=== PATIENT | male | born 1960 | race Caucasian/White ===

== ENCOUNTER 2016-04-06 09:21 | Emergency (ER) | payer BC ==
--- NOTE | 2016-08-18 13:25 | UC ---
King Fairbanks Adam, scribed for Isa Barahona MD on 04/06/16 at 1014 . Throat Pain/Nasal Prieto HPI - History of Current Complaint Stated Complaint: COUGH,SORE THROAT - Allergies/Home Medications Allergies/Adverse Reactions: Allergies Allergy/AdvReac Type Severity Reaction Status Date / Time No Known Allergies Allergy Verified 07/02/16 16:53 PMH/Surg Hx/FS Hx/Imm Hx Endocrine History Of: Reports: Thyroid Disease Denies: Diabetes Cardiovascular History Of: Denies: Cardiac Disorders, Hypertension, Pacemaker/ICD, Congestive Heart Failure Respiratory History Of: Denies: Asthma GI/ History Of: Denies: Renal Disease - Surgical History Surgical History: Yes Surgery Procedure, Year, and Place: Left wrist surgeries(GANGLION CYSTS) - Family History Known Family History: Positive: Other - [place] - Social History Alcohol Use: Rare Substance Use Type: None Smoking Status (MU): Never Smoked Tobacco Have You Smoked in the Last Year: No - Immunization History Most Recent Influenza Vaccination: unknown Most Recent Tetanus Shot: up to date Most Recent Pneumonia Vaccination: never Review of Systems All Other Systems Reviewed And Are Negative: Yes Discharge - Discharge Plan Disposition: LEFT WITHOUT BEING SEEN Referrals: Vu Bell MD [Primary Care Provider] - The documentation as recorded by the [place] Adam accurately reflects the service I personally performed and the decisions made by , Isa Barahona MD.
== END 2016-04-06 10:16 | disposition left against medical advice (07) ==
LOC: UCEAST 09:21
DX: Z53.21 Procedure and treatment not carried out due to patient leaving prior to being seen by health care provider (principal)

== ENCOUNTER 2016-04-06 12:08 | Emergency (ER) | payer BC ==
[2016-04-06 12:14] VITALS: BP 148/102
--- NOTE | 2016-04-06 13:04 | UC ---
Throat Pain/Nasal Prieto HPI - HPI Summary HPI Summary: FIVE DAYS OF SINUS CONGESTION, PRESSURE, SORE THROAT, RUNNY NOSE. COUGH WRSE AT NIGHT. NO FEVER. NO RASHES. - History of Current Complaint Chief Complaint: UCGeneralIllness Stated Complaint: CHEST CONGESTION Time Seen by Provider: 04/06/16 12:19 Hx Obtained From: Patient Onset/Duration: Gradual Onset, Lasting Days, Worse Since - DAILY Cough: Nonproductive Associated Signs & Symptoms: Positive: Hoarseness, Sinus Discomfort, Nasal Discharge - Epiglottits Risk Factors Epiglottis Risk Factors: Negative - Allergies/Home Medications Allergies/Adverse Reactions: Allergies Allergy/AdvReac Type Severity Reaction Status Date / Time No Known Allergies Allergy Verified 04/06/16 12:14 PMH/Surg Hx/FS Hx/Imm Hx Previously Healthy: Yes Endocrine History Of: Reports: Thyroid Disease Denies: Diabetes Cardiovascular History Of: Reports: Hypertension Denies: Cardiac Disorders, Pacemaker/ICD, Congestive Heart Failure Respiratory History Of: Denies: Asthma GI/ History Of: Denies: Renal Disease - Surgical History Surgical History: Yes Surgery Procedure, Year, and Place: Left wrist surgeries(GANGLION CYSTS). melanoma on back removed - Family History Known Family History: Positive: Other - [place] Negative: Respiratory Disease - Social History Occupation: Retired Lives: With Family Alcohol Use: Rare Substance Use Type: None Smoking Status (MU): Never Smoked Tobacco Have You Smoked in the Last Year: No - Immunization History Most Recent Influenza Vaccination: unknown Most Recent Tetanus Shot: up to date Most Recent Pneumonia Vaccination: never Review of Systems Constitutional: Negative Skin: Negative Eyes: Negative ENT: Sore Throat, Ear Ache, Nasal Discharge Respiratory: Cough Cardiovascular: Negative Gastrointestinal: Negative Genitourinary: Negative Motor: Negative Neurovascular: Negative Musculoskeletal: Negative Neurological: Negative Psychological: Negative All Other Systems Reviewed And Are Negative: Yes Physical Exam Triage Information Reviewed: Yes Appearance: Well-Appearing, No Pain Distress, Well-Nourished Vital Signs: Initial Vital Signs Temp 97.7 F 04/06/16 12:12 Pulse 88 04/06/16 12:12 Resp 18 04/06/16 12:12 BP 148/102 04/06/16 12:12 Pulse Ox 97 04/06/16 12:12 Vital Signs Reviewed: Yes Eye Exam: Normal Eyes: Positive: Conjunctiva Clear ENT: Positive: Hearing grossly normal, Pharynx normal, TM bulging, TM dull Dental Exam: Normal Neck exam: Normal Neck: Positive: Supple, Nontender, No Lymphadenopathy. Negative: Nuchal Rigidity, Tenderness @ Respiratory Exam: Other - COUGH Respiratory: Positive: Chest non-tender, Lungs clear, Normal breath sounds, No respiratory distress, No accessory muscle use Cardiovascular Exam: Normal Cardiovascular: Positive: RRR, No Murmur, Pulses Normal Abdominal Exam: Normal Abdomen Description: Positive: Nontender, No Organomegaly Musculoskeletal Exam: Normal Musculoskeletal: Positive: Strength Intact, ROM Intact, No Edema Neurological Exam: Normal Psychological Exam: Normal Psychological: Positive: Normal Response To Family Skin Exam: Normal Throat Pain/Nasal Course/Dx - Differential Dx/Diagnosis Differential Diagnosis/HQI/PQRI: Otitis Media, Pharyngitis, Sinusitis, Tonsillitis, URI Provider Diagnoses: SINUSITIS. BRONCHITIS Discharge - Discharge Plan Condition: Stable Disposition: HOME Prescriptions: Amoxicillin/Clavulanate TAB* [Augmentin TAB 875*] 875 mg PO BID #20 tab Benzonatate CAP* [Tessalon CAP*] 100 mg PO TID PRN #15 cap PRN Reason: Cough Patient Education Materials: Sinusitis (ED) Referrals: Vu Bell MD [Primary Care Provider] -
== END 2016-04-06 12:42 | disposition home or self-care (01) ==
LOC: UCEAST 12:08
DX: J32.9 Chronic sinusitis, unspecified (principal); J40 Bronchitis, not specified as acute or chronic; Z85.820 Personal history of malignant melanoma of skin
CPT/HCPCS: 99212; G0463

== ENCOUNTER 2016-06-15 07:40 | Emergency (ER) | payer BC ==
[2016-06-15 07:50] VITALS: BP 145/85
--- NOTE | 2016-06-15 08:04 | UC ---
Respiratory Complaint HPI - HPI Summary HPI Summary: The patient comes in today for: 1. Rhinitis, sore throat: Onset: 2 days ago. Palliative/provocative: Swallowing makes his throat hurt more. Quality: Raw sensation. Region: Throat. Severity: 6/10 Time: Constant. Associated symptoms: ONe month ago, he states that he had the same thing and it turned out to be "Sinusitis." He got amoxicillin which helped. His strep test was normal. Rhinitis: None. Cough: None. Fever: None. Strep exposure: None. * - History of Current Complaint Chief Complaint: UCRespiratory Stated Complaint: SINUS COMPLAINT Time Seen by Provider: 06/15/16 07:59 Hx Obtained From: Patient - Allergies/Home Medications Allergies/Adverse Reactions: Allergies Allergy/AdvReac Type Severity Reaction Status Date / Time No Known Allergies Allergy Verified 06/15/16 07:50 PMH/Surg Hx/FS Hx/Imm Hx Previously Healthy: No - Melanoma: back and chest. Endocrine History Of: Reports: Thyroid Disease, Hypothyroidism Denies: Diabetes, Hyperthyroidism, Dyslipidemia Cardiovascular History Of: Reports: Hypertension - HE states that his BP tends to run high, but not enough to Rx. Denies: Cardiac Disorders, Pacemaker/ICD, Congestive Heart Failure Respiratory History Of: Denies: COPD, Asthma, Bronchitis, Pneumonia, Pulmonary Embolism GI/ History Of: Reports: Gastroesophageal Reflux Denies: Ulcer, Gastrointestinal Bleed, Gall Bladder Disease, Kidney Stones, Diverticulitis, Renal Disease, Urosepsis Neurological History Of: Denies: TIA, CVA, Dementia, Seizures, Migraine Psychological History Of: Denies: Anxiety, Depression, Bipolar Disorder, Schizophrenia, Post Traumatic Stress Disorder Cancer History Of: Denies: Lung Cancer, Colorectal Cancer, Breast Cancer, Prostate Cancer, Cervical Cancer Other History Of: Negative For: HIV, Hepatitis B, Hepatitis C, Anticoagulant Therapy - Surgical History Surgical History: Yes Surgery Procedure, Year, and Place: Left wrist surgeries(GANGLION CYSTS). melanoma on back removed - Family History Known Family History: Positive: Hypertension, Other - [place] Negative: Cardiac Disease, Respiratory Disease - Social History Occupation: Retired Lives: With Family Alcohol Use: Rare Substance Use Type: None Smoking Status (MU): Never Smoked Tobacco Have You Smoked in the Last Year: No - Immunization History Most Recent Influenza Vaccination: unknown Most Recent Tetanus Shot: up to date Most Recent Pneumonia Vaccination: never Review of Systems Constitutional: Negative Skin: Negative Eyes: Negative ENT: Sore Throat Respiratory: Negative Cardiovascular: Negative Gastrointestinal: Negative Genitourinary: Negative All Other Systems Reviewed And Are Negative: Yes Physical Exam Triage Information Reviewed: Yes Appearance: Well-Appearing, No Pain Distress, Well-Nourished Vital Signs: Initial Vital Signs Temp 97.2 F 06/15/16 07:44 Pulse 79 06/15/16 07:44 Resp 18 06/15/16 07:44 BP 145/85 06/15/16 07:44 Pulse Ox 100 06/15/16 07:44 Vital Signs Reviewed: Yes Eyes: Positive: Conjunctiva Clear ENT: Positive: Hearing grossly normal. Negative: Pharyngeal erythema, Nasal congestion, Nasal drainage, TM bulging, TM dull, TM red, Tonsillar swelling, Tonsillar exudate Neck: Positive: Supple, Nontender, No Lymphadenopathy. Negative: Nuchal Rigidity Respiratory: Positive: Chest non-tender, Lungs clear, No respiratory distress, No accessory muscle use. Negative: Crackles, Wheezing Cardiovascular: Positive: RRR, No Murmur Abdomen Description: Positive: Nontender, No Organomegaly, Soft. Negative: Distended Musculoskeletal: Positive: Strength Intact, ROM Intact Neurological: Positive: Alert, Muscle Tone Normal Psychological: Positive: Age Appropriate Behavior, Consolable Skin: Negative: rashes, breakdown UC Diagnostic Evaluation - Laboratory O2 Sat by Pulse Oximetry: 100 Diagnostic Studies Comment: Strep test: (-) Respiratory Course/Dx - Course Course Of Treatment: Patient told of his negative strep test result. He was told of his treatment options. He states that he will be traveling and would like an antibiotic to take with him (Z-pack) in case he gets worse. - Differential Dx/Diagnosis Differential Diagnosis/HQI/PQRI: Laryngitis, Sinusitis Provider Diagnoses: Viral pharyngitis. high blood pressure. Discharge - Discharge Plan Condition: Stable Disposition: HOME Patient Education Materials: Pharyngitis (ED), Hypertension (ED) Referrals: Vu Bell MD [Primary Care Provider] - 1 Week (Please see your primary care provider next week to see how well you are doing and to see what your blood pressure is doing.)
== END 2016-06-15 08:39 | disposition home or self-care (01) ==
LOC: UCEAST 07:40
DX: J02.9 Acute pharyngitis, unspecified (principal); R03.0 Elevated blood-pressure reading, without diagnosis of hypertension; E03.9 Hypothyroidism, unspecified; K21.9 Gastro-esophageal reflux disease without esophagitis; Z85.820 Personal history of malignant melanoma of skin
CPT/HCPCS: 87651; 99212; G0463

== ENCOUNTER 2016-07-02 16:43 | Emergency (ER) | payer BC ==
[2016-07-02 17:28] LABS: Hematocrit 45 % (42-52); Hemoglobin 15.2 g/dl (14.0-18.0); Mean Corpuscular HGB Conc 34 g/dl (31-36); Mean Corpuscular Hemoglobin 30 pg (27-31); Mean Corpuscular Volume 89 fL (80-94); Mean Platelet Volume 7 um3 (7.4-10.4); Red Blood Count 5.09 10^6/ul (4.0-5.4); Red Cell Distribution Width 13 % (10.5-15); White Blood Count 9.8 10^3/ul (3.5-10.8)
[2016-07-02 17:43] LABS: Albumin 4.3 g/dL (3.2-5.2); BUN/Creatinine Ratio 12.5 (8-20); Calcium 9.3 mg/dL (8.6-10.3); EGFR Non-African American 58.3 (>60); Potassium 3.6 mmol/L (3.5-5.0); Total Bilirubin 0.7 mg/dL (0.2-1.0); Total Protein 7.3 g/dL (6.4-8.9)
[2016-07-02] MEDS ORDERED: Ondansetron INJ* 2 MG/ML VIAL ONE (18:20)
[2016-07-02] MEDS ORDERED: Ondansetron INJ* 2 MG/ML VIAL IV ONE (18:21)
[2016-07-02 18:27] LABS: Urine Bacteria 1+ (Absent); Urine Bilirubin Negative (Negative); Urine Glucose Negative (Negative); Urine Nitrite Negative (Negative)
[2016-07-02] MEDS ORDERED: Iodixanol* (CONTRAST) 320 MG/ML 100 ML SDV IV ONE (18:29)
[2016-07-02] MEDS ORDERED: NS 0.9% 1000 ML* 1,000 ML IV ONE (19:30)
[2016-07-02] MEDS ORDERED: Morphine INJ* 10 MG/ML 1 ML SYRINGE IV ONE (19:30)
--- NOTE | 2016-07-02 20:49 | RAD ---
Indication: Left lower quadrant pain. Contrast: Administered 122.0 ml of VISAPAQUE 320 mgi/ml CT of the abdomen and pelvis was performed after oral and IV contrast administration. Coronal and sagittal reconstructed images were obtained. Comparison is made with previous exam dated January 30, 2016. The lung bases demonstrate no pleural fluid, nodules or masses. Heart is of normal size without evidence of pericardial effusion. The liver is normal in size. There is a low density lesion in the right lobe of liver measuring 14 mm. This is nonspecific. This was present on previous exam and has not significantly changed. The gallbladder demonstrates no calcified gallstones, pericholecystic fluid or wall thickening. The spleen is normal in size. The pancreas demonstrates no mass or pancreatic duct dilatation. No adrenal lesions are noted. The kidneys demonstrate symmetric nephrograms. Calcified cyst is noted in the upper pole of the left kidney measuring 8.1 x 6.5 x 6.2 cm and has not significant changed in size. There is a upper pole cyst in the right kidney measuring up to 3.1 cm. No retroperitoneal lymphadenopathy is noted. No dilated loops of bowel are noted. Contrast is noted in the colon. Diverticulosis without definite evidence of diverticulitis is noted. The urinary bladder is unremarkable. No hernias are noted. No free fluid is identified. No evidence of bowel obstruction is noted. Aorta and inferior vena cava are unremarkable. The prostate is unremarkable. IMPRESSION: DIVERTICULOSIS WITHOUT DEFINITE EVIDENCE OF DIVERTICULITIS. PROMINENT PROSTATE. LOW DENSITY LESION IN THE RIGHT LOBE OF LIVER APPEARS STABLE. BILATERAL RENAL CYSTS LEFT CYST WHICH IS CALCIFIED BUT APPEARS STABLE SINCE PREVIOUS EXAM.
[2016-07-02] MEDS ORDERED: HYDROcodone/ACETAMIN 5-325 MG* 1 TAB PO ONE (21:38)
[2016-07-02 22:23] VITALS: BP 154/92
--- NOTE | 2016-07-05 08:45 | ED ---
Eduard Fairbanks Matthew, scribed for Hugo Heath MD on 07/02/16 at 1927 . Abdominal Pain/Male - HPI Summary HPI Summary: A 55 y/o male presents to the ED with LLQ abdominal pain since 06/26. The pain is mostly in the morning, currently rated 4/10 in severity, and described as sharp. He started taking Abx on 06/28, from a previous script about 6 months old. Associated symptoms include abdominal bloating - which he didn't have during his last episode of diverticulitis, fatigue, and groin pain. He denies blood w/ stool, diarrhea, vomiting, fever, chills, urinary symptoms, testicular pain, penile discharge, and body aches. No Hx of kidney stones. His last BM was this morning. Hx of two episodes of diverticulitis. Hx of herniated disk and he' s currently have some back pain. The patient has only been taking Tylenol PM at night for pain. - History of Current Complaint Chief Complaint: EDAbdPain Stated Complaint: ABD PAIN Time Seen by Provider: 07/02/16 17:19 Hx Obtained From: Patient Onset/Duration: Lasting Days, Still Present Timing: Intermittent - mostly in the morning Severity Initially: Moderate Severity Currently: Moderate Pain Intensity: 4 Pain Scale Used: 0-10 Numeric Location: Discrete At: LLQ Radiates: No Character: Sharp Associated Signs And Symptoms: Positive: Back Pain. Negative: Diaphoresis, Fever, Cough, Chest Pain, Blood in Stool, Urinary Symptoms, Nausea, Vomiting, Diarrhea, Penile Discharge - Allergies/Home Medications Allergies/Adverse Reactions: Allergies Allergy/AdvReac Type Severity Reaction Status Date / Time No Known Allergies Allergy Verified 07/02/16 16:53 PMH/Surg Hx/FS Hx/Imm Hx Endocrine/Hematology History: Reports: Hx Thyroid Disease Denies: Hx Anticoagulant Therapy, Hx Diabetes Cardiovascular History: Reports: Hx Hypertension - HE states that his BP tends to run high, but not enough to Rx. Denies: Hx Congestive Heart Failure, Hx Pacemaker/ICD, Other Cardiovascular Problems/Disorders Respiratory History: Denies: Hx Asthma, Hx Chronic Obstructive Pulmonary Disease (COPD), Hx Lung Cancer, Hx Pneumonia, Hx Pulmonary Embolism GI History: Reports: Hx Gastroesophageal Reflux Disease Denies: Hx Gall Bladder Disease, Hx Gastrointestinal Bleed, Hx Ulcer, Hx Urosepsis History: Denies: Hx Dialysis, Hx Kidney Stones, Hx Renal Disease Musculoskeletal History: Reports: Hx Arthritis - around L4-L5, Hx Back Problems - L4-L5 slipped disc, Other Musculoskeletal History - Bilateral rotator cuff Sensory History: Reports: Hx Contacts or Glasses - reading Denies: Hx Hearing Aid Opthamlomology History: Reports: Hx Contacts or Glasses - reading Neurological History: Denies: Hx Dementia, Hx Migraine, Hx Seizures, Hx Transient Ischemic Attacks (TIA) Psychiatric History: Denies: Hx Anxiety, Hx Depression, Hx Panic Disorder, Hx Schizophrenia, Hx Bipolar Disorder - Cancer History Cancer Type, Location and Year: melanoma ON BACK Hx Chemotherapy: No Hx Radiation Therapy: No - Surgical History Surgery Procedure, Year, and Place: Left wrist surgeries(GANGLION CYSTS). melanoma on back removed Hx Anesthesia Reactions: No - Immunization History Date of Tetanus Vaccine: unk Date of Influenza Vaccine: never Infectious Disease History: No Infectious Disease History: Denies: Traveled Outside the [place] in Last 30 Days - Family History Known Family History: Positive: Hypertension, Other - [place] Negative: Cardiac Disease, Respiratory Disease - Social History Alcohol Use: Rare Substance Use Type: Reports: None Smoking Status (MU): Never Smoked Tobacco Have You Smoked in the Last Year: No Review of Systems Positive: Fatigue. Negative: Fever, Chills Eyes: Negative Negative: Erythema ENT: Negative Negative: Sore Throat Cardiovascular: Negative Negative: Chest Pain Respiratory: Negative Negative: Shortness Of Breath, Cough Gastrointestinal: Other - abdominal bloating Positive: Abdominal Pain - LLQ pain . Negative: Vomiting, Diarrhea, Nausea Genitourinary: Negative Negative: dysuria, hematuria Positive: Myalgia - pain in the groin . Negative: Edema Skin: Negative Negative: Rash Neurological: Negative Negative: Headache Psychological: Normal All Other Systems Reviewed And Are Negative: Yes Physical Exam - Summary Physical Exam Summary: exam showed non-tender testicular, no inguinal hernia. Exam done was done in an upright position. Prostate enlarged, but non-tender and not fluctuant. Triage Information Reviewed: Yes Vital Signs On Initial Exam: Initial Vitals Temp Pulse Resp BP Pulse Ox 97.8 F 103 16 180/91 100 07/02/16 16:53 07/02/16 16:53 07/02/16 16:53 07/02/16 16:53 07/02/16 16:53 Vital Signs Reviewed: Yes Appearance: Positive: Pain Distress - mild Skin: Positive: Warm, Dry Head/Face: Positive: Other - Normocephalic; Atraumatic Eyes: Positive: Conjunctiva Clear Dental: Negative: Cervical Lymphadenopathy Neck: Positive: No Lymphadenopathy, Other: - Full ROM; No JVD Respiratory/Lung Sounds: Positive: Other - Normal Effort; No Respiratory distress. Negative: Rales, Stridor, Tracheal Deviation, Wheezes Cardiovascular: Positive: RRR, Other - Rhythm regular, rate normal, Heart sounds normal; Intact distal pulses; The pedal pulses are 2+ and symmetric. Radial pulses are 2+ and symmetric.. Negative: Murmur Abdomen Description: Positive: Soft, Other: - LLQ TENDERNESS; No Rebound. Negative: Distended, Guarding Bowel Sounds: Positive: Present Musculoskeletal: Negative: Edema Left, Edema Right Neurological: Positive: Alert, Oriented to Person Place, Time - Petra Coma Scale Coma Scale Total: 15 Diagnostics - Vital Signs Vital Signs Temp Pulse Resp BP Pulse Ox 07/02/16 19:00 85 135/79 94 07/02/16 18:30 85 150/89 94 07/02/16 18:00 91 146/107 95 07/02/16 17:30 96 135/92 95 07/02/16 17:19 93 96 07/02/16 17:17 139/89 07/02/16 16:57 97.8 F 103 16 180/92 100 07/02/16 16:53 97.8 F 103 16 180/91 100 - Laboratory Lab Results: Lab Results 07/02/16 07/02/16 07/02/16 Range/Units 17:20 17:20 17:20 WBC 9.8 (3.5-10.8) 10^3/ul RBC 5.09 (4.0-5.4) 10^6/ul Hgb 15.2 (14.0-18.0) g/dl Hct 45 (42-52) % MCV 89 (80-94) fL MCH 30 (27-31) pg MCHC 34 (31-36) g/dl RDW 13 (10.5-15) % Plt Count 322 (150-450) 10^3/ul MPV 7 L (7.4-10.4) um3 Neut % (Auto) 78.4 (38-83) % Lymph % (Auto) 13.2 L (25-47) % [place] % (Auto) 6.7 (1-9) % Eos % (Auto) 1.0 (0-6) % Baso % (Auto) 0.7 (0-2) % Absolute Neuts (auto) 7.7 (1.5-7.7) 10^3/ul Absolute Lymphs (auto) 1.3 (1.0-4.8) 10^3/ul Absolute Monos (auto) 0.7 (0-0.8) 10^3/ul Absolute Eos (auto) 0.1 (0-0.6) 10^3/ul Absolute Basos (auto) 0.1 (0-0.2) 10^3/ul Absolute Nucleated RBC 0 10^3/ul Nucleated RBC % 0 Sodium 137 (133-145) mmol/L Potassium 3.6 (3.5-5.0) mmol/L Chloride 101 (101-111) mmol/L Carbon Dioxide 27 (22-32) mmol/L Anion Gap 9 (2-11) mmol/L BUN 16 (6-24) mg/dL Creatinine 1.28 H (0.67-1.17) mg/dL Est GFR ( Amer) 75.0 (>60) Est GFR (Non-Af Amer) 58.3 (>60) BUN/Creatinine Ratio 12.5 (8-20) Glucose 93 (70-100) mg/dL Lactic Acid 1.8 (0.5-2.0) mmol/L Calcium 9.3 (8.6-10.3) mg/dL Total Bilirubin 0.70 (0.2-1.0) mg/dL AST 31 (13-39) U/L ALT 33 (7-52) U/L Alkaline Phosphatase 47 (34-104) U/L Total Protein 7.3 (6.4-8.9) g/dL Albumin 4.3 (3.2-5.2) g/dL Globulin 3.0 (2-4) g/dL Albumin/Globulin Ratio 1.4 (1-3) Lipase 39 (11.0-82.0) U/L Urine Color Urine Appearance Urine pH (5-9) Ur Specific [place] (1.010-1.030) Urine Protein (Negative) Urine Ketones (Negative) Urine Blood (Negative) Urine Nitrate (Negative) Urine Bilirubin (Negative) Urine Urobilinogen (Negative) Ur Leukocyte Esterase (Negative) Urine WBC (Auto) (Absent) Urine RBC (Auto) (Absent) Urine Bacteria (Absent) Urine Glucose (Negative) 07/02/16 Range/Units 18:15 WBC (3.5-10.8) 10^3/ul RBC (4.0-5.4) 10^6/ul Hgb (14.0-18.0) g/dl Hct (42-52) % MCV (80-94) fL MCH (27-31) pg MCHC (31-36) g/dl RDW (10.5-15) % Plt Count (150-450) 10^3/ul MPV (7.4-10.4) um3 Neut % (Auto) (38-83) % Lymph % (Auto) (25-47) % [place] % (Auto) (1-9) % Eos % (Auto) (0-6) % Baso % (Auto) (0-2) % Absolute Neuts (auto) (1.5-7.7) 10^3/ul Absolute Lymphs (auto) (1.0-4.8) 10^3/ul Absolute Monos (auto) (0-0.8) 10^3/ul Absolute Eos (auto) (0-0.6) 10^3/ul Absolute Basos (auto) (0-0.2) 10^3/ul Absolute Nucleated RBC 10^3/ul Nucleated RBC % Sodium (133-145) mmol/L Potassium (3.5-5.0) mmol/L Chloride (101-111) mmol/L Carbon Dioxide (22-32) mmol/L Anion Gap (2-11) mmol/L BUN (6-24) mg/dL Creatinine (0.67-1.17) mg/dL Est GFR ( Amer) (>60) Est GFR (Non-Af Amer) (>60) BUN/Creatinine Ratio (8-20) Glucose (70-100) mg/dL Lactic Acid (0.5-2.0) mmol/L Calcium (8.6-10.3) mg/dL Total Bilirubin (0.2-1.0) mg/dL AST (13-39) U/L ALT (7-52) U/L Alkaline Phosphatase (34-104) U/L Total Protein (6.4-8.9) g/dL Albumin (3.2-5.2) g/dL Globulin (2-4) g/dL Albumin/Globulin Ratio (1-3) Lipase (11.0-82.0) U/L Urine Color Straw Urine Appearance Clear Urine pH 6.0 (5-9) Ur Specific [place] 1.005 L (1.010-1.030) Urine Protein Negative (Negative) Urine Ketones Negative (Negative) Urine Blood 1+ H (Negative) Urine Nitrate Negative (Negative) Urine Bilirubin Negative (Negative) Urine Urobilinogen Negative (Negative) Ur Leukocyte Esterase Trace H (Negative) Urine WBC (Auto) Absent (Absent) Urine RBC (Auto) Trace(0-2/hpf) (Absent) Urine Bacteria 1+ H (Absent) Urine Glucose Negative (Negative) Result Diagrams: 07/02/16 17:20 07/02/16 17:20 Lab Statement: Any lab studies that have been ordered have been reviewed, and results considered in the medical decision making process. - CT A/P CT CT Interpretation: No Acute Changes - IMPRESSION: DIVERTICULOSIS WITHOUT DEFINITE EVIDENCE OF DIVERTICULITIS. PROMINENT PROSTATE. LOW DENSITY LESION IN THE RIGHT LOBE OF LIVER APPEARS STABLE. BILATERAL RENAL CYSTS LEFT CYST WHICH IS CALCIFIED BUT APPEARS STABLE SINCE PREVIOUS EXAM. CT Interpretation Completed By: Radiologist Re-Evaluation - Re-Evaluation First Eval Re-Evaluation Time: 21:38 Change: Improved Comment: The patient is feeling better. He also told me he developed the pain while at the gym. Abdominal Pain Fem Course/Dx - Course Assessment/Plan: A 55 y/o male presents to the ED with LLQ abdominal pain since 06/26. The pain is mostly in the morning, currently rated 4/10 in severity, and described as sharp. He started taking Abx on 06/28, from a previous script about 6 months old. Associated symptoms include abdominal bloating - which he didn't have during his last episode of diverticulitis, fatigue, and groin pain. He denies blood w/ stool, diarrhea, vomiting, fever, chills, urinary symptoms, testicular pain, penile discharge, and body aches. No Hx of kidney stones. His last BM was this morning. Hx of two episodes of diverticulitis. CT A/P shows diverticulosis without definite evidence of diverticulitis. prominent prostate. low density lesion in the right lobe of liver appears stable. bilateral renal cysts left cyst which is calcified but appears stable since previous exam. Labs were reviewed. In the ED course, the patient was given [place] , IV fluids, and Zofran. The patient did well in the ED and is feeling better. The patient is leaving for [place] next weekend and wished to finish the Abx provided by his PCP. We offered a fresh prescription as this Abx was at least 6 months old. Discussed the possibility of groin strain vs. early diverticulitis. The patient will be discharged home with PCP follow-up. - Diagnoses Provider Diagnoses: Groin pain Discharge - Discharge Plan Condition: Stable Disposition: HOME Prescriptions: Ciprofloxacin TAB* [Cipro 500 MG TAB*] 500 mg PO BID #20 tab HYDROcodone/ACETAMIN 5-325 MG* [[place] 5-325 TAB*] 1 tab PO Q6H PRN #12 tab MDD 4 PRN Reason: Pain - Moderate To Severe Lidocaine PATCH 5%* [Lidoderm 5% Patch*] 1 patch TRANSDERM DAILY #14 patch Metronidazole [Flagyl 500 MG TAB] 500 mg PO BID #20 tab Patient Education Materials: Ciprofloxacin (By mouth), Hydrocodone/ Acetaminophen (By mouth), Metronidazole (By mouth), Lidocaine Patch (On the skin ), Groin Pain (ED) Forms: *Work Release Referrals: Vu Bell MD [Primary Care Provider] - 3 Days Additional Instructions: Please follow-up with your primary care physician in 3 days. The documentation as recorded by the Eduard johnson Matthew accurately reflects the service I personally performed and the decisions made by , Hugo Heath MD.
== END 2016-07-02 22:20 | disposition home or self-care (01) ==
LOC: ED 16:43
DX: R10.30 Lower abdominal pain, unspecified (principal); K57.90 Diverticulosis of intestine, part unspecified, without perforation or abscess without bleeding
CPT/HCPCS: 36415; 74177; 80053; 81003; 81015; 83605; 83690; 85025; 87086; 96374; 96375; 99284; J2270; J2405; Q9967

== ENCOUNTER 2017-03-07 10:25 | Emergency (ER) | payer BC ==
[2017-03-07 11:51] LABS: Hematocrit 44 % (42-52); Hemoglobin 14.9 g/dl (14.0-18.0); Mean Corpuscular HGB Conc 34 g/dl (31-36); Mean Corpuscular Hemoglobin 30 pg (27-31); Mean Corpuscular Volume 88 fL (80-94); Mean Platelet Volume 7 um3 (7.4-10.4); Red Blood Count 4.94 10^6/ul (4.0-5.4); Red Cell Distribution Width 13 % (10.5-15); White Blood Count 5.6 10^3/ul (3.5-10.8)
[2017-03-07 12:07] LABS: Albumin 4.1 g/dL (3.2-5.2); C Reactive Protein 19.29 mg/L (< 5.00); Calcium 9.1 mg/dL (8.6-10.3); EGFR African American 86.3 (>60); EGFR Non-African American 67.1 (>60); Potassium 4.6 mmol/L (3.5-5.0); Total Bilirubin 0.7 mg/dL (0.2-1.0); Total Protein 7.1 g/dL (6.4-8.9)
[2017-03-07 14:10] LABS: Urine Bacteria Absent (Absent); Urine Bilirubin Negative (Negative); Urine Glucose Negative (Negative); Urine Nitrite Negative (Negative)
--- NOTE | 2017-03-07 14:22 | RAD ---
INDICATION: LEFT lower quadrant pain. History of diverticulosis. History of melanoma. COMPARISON: July 02, 2016 CT TECHNIQUE: Multidetector CT images were obtained from the lung bases to the ischial tuberosities. Evaluation of the viscera is limited without IV contrast. Multiplanar reformation. REPORT: Unremarkable visualized inferior thorax. The unenhanced liver, gallbladder, pancreas, and spleen are unremarkable. Negative for CT abnormality of the upper GI, small bowel, or infra cecal appendix. Severe colonic diverticulosis most confluent at the sigmoid segment without findings of acute diverticulitis. Negative for ascites, free air, hernias. Normal adrenal glands. 2.9 cm simple appearing cortical cyst upper pole RIGHT kidney. Complex 7.8 cm macro lobular margined water density cyst of the upper to midpole of the LEFT kidney with segmental regions of marginal calcification is grossly unchanged compared with the most recent prior CT as well as a CT from June 15, 2014 consistent with benign etiology. Negative for urolithiasis or hydronephrosis. Unremarkable nondilated ureters. Largely decompressed urinary bladder limiting assessment without gross abnormality. Symmetric seminal vesicles. Negative for lymphadenopathy. Normal diameter abdominal aorta and iliac arteries with minimal calcific plaque. Physiologic distention of the IVC. Negative for suspicious focal osseous lesions. IMPRESSION: 1. Normal appendix documented. 2. Colonic diverticulosis without CT findings of acute diverticulitis.
[2017-03-07] MEDS ORDERED: Ondansetron INJ* 2 MG/ML VIAL IV ONE (14:26)
[2017-03-07] MEDS ORDERED: HYDROmorphone INJ* 1 MG/ML CARPUJECT SYRINGE IV ONE (14:26)
[2017-03-07] MEDS ORDERED: oxyCODONE/Acetamin 5/325 MG* TAB PO ONE (14:29)
[2017-03-07] MEDS ORDERED: Ondansetron ODT TAB* 4 MG PO ONE (14:29)
[2017-03-07 15:31] VITALS: BP 143/84
--- NOTE | 2017-03-07 18:03 | ED ---
Khushi Fairbanks Gabriel, scribed for Neto Chua MD on 03/07/17 at 1302 . Abdominal Pain/Male - HPI Summary HPI Summary: This patient is a 56 year old M presenting to [facility] with a chief complaint of LLQ pain since 03/04/17. The patient rates the pain 6/10 in severity. Patient has had diverticulosis and contacted his GI doctor today; who was out of town and referred him to the ED. Patient is also being seen by urology and is taking antibiotics for a prostate problem. - History of Current Complaint Chief Complaint: EDAbdPain Stated Complaint: ABP PAIN Time Seen by Provider: 03/07/17 12:59 Hx Obtained From: Patient Onset/Duration: Lasting Days - since 03/04/17, Still Present Timing: Constant Severity Initially: Moderate Severity Currently: Moderate Pain Intensity: 7 Pain Scale Used: 0-10 Numeric Location: Discrete At: LLQ Radiates: No - Allergies/Home Medications Allergies/Adverse Reactions: Allergies Allergy/AdvReac Type Severity Reaction Status Date / Time No Known Allergies Allergy Verified 01/13/17 11:11 PMH/Surg Hx/FS Hx/Imm Hx Previously Healthy: No Endocrine/Hematology History: Reports: Hx Thyroid Disease Denies: Hx Anticoagulant Therapy, Hx Diabetes Cardiovascular History: Reports: Hx Hypertension - HE states that his BP tends to run high, but not enough to Rx. Denies: Hx Congestive Heart Failure, Hx Pacemaker/ICD, Other Cardiovascular Problems/Disorders Respiratory History: Denies: Hx Asthma, Hx Chronic Obstructive Pulmonary Disease (COPD), Hx Lung Cancer, Hx Pneumonia, Hx Pulmonary Embolism GI History: Reports: Hx Diverticulosis, Hx Gastroesophageal Reflux Disease Denies: Hx Gall Bladder Disease, Hx Gastrointestinal Bleed, Hx Ulcer, Hx Urosepsis History: Denies: Hx Dialysis, Hx Kidney Stones, Hx Renal Disease Musculoskeletal History: Reports: Hx Arthritis - around L4-L5, Hx Back Problems - L4-L5 slipped disc, Other Musculoskeletal History - Bilateral rotator cuff Sensory History: Reports: Hx Contacts or Glasses - reading Denies: Hx Hearing Aid Opthamlomology History: Reports: Hx Contacts or Glasses - reading Neurological History: Denies: Hx Dementia, Hx Migraine, Hx Seizures, Hx Transient Ischemic Attacks (TIA) Psychiatric History: Denies: Hx Anxiety, Hx Depression, Hx Panic Disorder, Hx Schizophrenia, Hx Bipolar Disorder - Cancer History Cancer Type, Location and Year: melanoma ON BACK AND CHEST Hx Chemotherapy: No Hx Radiation Therapy: No - Surgical History Surgery Procedure, Year, and Place: Left wrist surgeries(GANGLION CYSTS) - 3 TOTAL. 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 Hx Anesthesia Reactions: No - Immunization History Date of Tetanus Vaccine: unk Date of Influenza Vaccine: never Infectious Disease History: No Infectious Disease History: Denies: Traveled Outside the [place] in Last 30 Days - Family History Known Family History: Positive: Hypertension, Other - [place] Negative: Cardiac Disease, Respiratory Disease - Social History Alcohol Use: Rare Substance Use Type: Reports: None Smoking Status (MU): Never Smoked Tobacco Have You Smoked in the Last Year: No Review of Systems Negative: Fever Positive: Abdominal Pain All Other Systems Reviewed And Are Negative: Yes Physical Exam - Summary Physical Exam Summary: Appearance: The patient is well-nourished in no acute distress and in no acute pain. Skin: The skin is warm and dry and skin color reflects adequate perfusion. HEENT: The head is normocephalic and atraumatic. The pupils are equal and reactive. The conjunctivae are clear and without drainage. Nares are patent and without drainage. Mouth reveals moist mucous membranes and the throat is without erythema and exudate. The external ears are intact. The ear canals are patent and without drainage. The tympanic membranes are intact. Neck: the neck is supple with full range of motion and non-tender. There are no carotid bruits. There is no neck vein distension. Respiratory: Chest is non-tender. Lungs are clear to auscultation and breath sounds are symmetrical and equal. Cardiovascular: Heart is regular rate and rhythm. There is no murmur or rub auscultated. There is no peripheral edema and pulses are symmetrical and equal. Abdomen: The abdomen is soft and is tender in the LLQ. There are normal bowel sounds heard in all four quadrants and there is no organomegaly palpated. Musculoskeletal: There is no back tenderness noted. Extremities are non-tender with full range of motion. There is good capillary refill. There is no peripheral edema or calf tenderness elicited. Neurological: Patient is alert and oriented to person, place and time. The patient has symmetrical motor strength in all four extremities. Cranial nerves are grossly intact. Deep tendon reflexes are symmetrical and equal in all four extremities. Psychiatric: The patient has an appropriate affect and does not exhibit any anxiety or depression. Triage Information Reviewed: Yes Vital Signs On Initial Exam: Initial Vitals Temp Pulse Resp BP Pulse Ox 98.2 F 91 20 197/100 97 03/07/17 10:28 03/07/17 10:28 03/07/17 10:28 03/07/17 10:28 03/07/17 10:28 Vital Signs Reviewed: Yes - Hudson Coma Scale Coma Scale Total: 15 Diagnostics - Vital Signs Vital Signs Temp Pulse Resp BP Pulse Ox 03/07/17 12:55 75 98 03/07/17 12:53 161/96 03/07/17 12:37 97.6 F 81 20 163/103 98 03/07/17 10:28 98.2 F 91 20 197/100 97 - Laboratory Lab Results: Lab Results 03/07/17 03/07/17 03/07/17 Range/Units 11:35 11:35 11:35 WBC 5.6 (3.5-10.8) 10^3/ul RBC 4.94 (4.0-5.4) 10^6/ul Hgb 14.9 (14.0-18.0) g/dl Hct 44 (42-52) % MCV 88 (80-94) fL MCH 30 (27-31) pg MCHC 34 (31-36) g/dl RDW 13 (10.5-15) % Plt Count 292 (150-450) 10^3/ul MPV 7 L (7.4-10.4) um3 Neut % (Auto) 61.0 (38-83) % Lymph % (Auto) 20.8 L (25-47) % [place] % (Auto) 10.7 H (1-9) % Eos % (Auto) 6.2 H (0-6) % Baso % (Auto) 1.3 (0-2) % Absolute Neuts (auto) 3.4 (1.5-7.7) 10^3/ul Absolute Lymphs (auto) 1.2 (1.0-4.8) 10^3/ul Absolute Monos (auto) 0.6 (0-0.8) 10^3/ul Absolute Eos (auto) 0.3 (0-0.6) 10^3/ul Absolute Basos (auto) 0.1 (0-0.2) 10^3/ul Absolute Nucleated RBC 0 10^3/ul Nucleated RBC % 0.1 Sodium 136 (133-145) mmol/L Potassium 4.6 (3.5-5.0) mmol/L Chloride 104 (101-111) mmol/L Carbon Dioxide 27 (22-32) mmol/L Anion Gap 5 (2-11) mmol/L BUN 26 H (6-24) mg/dL Creatinine 1.13 (0.67-1.17) mg/dL Est GFR ( Amer) 86.3 (>60) Est GFR (Non-Af Amer) 67.1 (>60) BUN/Creatinine Ratio 23.0 H (8-20) Glucose 97 (70-100) mg/dL Lactic Acid 0.8 (0.5-2.0) mmol/L Calcium 9.1 (8.6-10.3) mg/dL Total Bilirubin 0.70 (0.2-1.0) mg/dL AST 31 (13-39) U/L ALT 53 H (7-52) U/L Alkaline Phosphatase 56 (34-104) U/L C-Reactive Protein 19.29 H (< 5.00) mg/L Total Protein 7.1 (6.4-8.9) g/dL Albumin 4.1 (3.2-5.2) g/dL Globulin 3.0 (2-4) g/dL Albumin/Globulin Ratio 1.4 (1-3) Lipase 43 (11.0-82.0) U/L Result Diagrams: 03/07/17 11:35 03/07/17 11:35 Lab Statement: Any lab studies that have been ordered have been reviewed, and results considered in the medical decision making process. - CT CT ABD/Pelvis CT Interpretation Completed By: Radiologist - 1. Normal appendix documented. 2. Colonic diverticulosis without CT findings of acute diverticulitis. ED physician has reviewed this radiology report. Abdominal Pain Fem Course/Dx - Course Course Of Treatment: Mr. Pendleton presented with LLQ pain for 3 days. It's not really peristaltic by description but rather constant and aggravated by movement. He was tender in his LLQ without a hernia. His W/U was positive only for diverticulosis on noncontrast study. This may be musculoskeletal. Nothing dangerous seems to be happening. I am going to treat him for diverticulitis with the assumption that the noncontrast CT is missing it. - Diagnoses Provider Diagnoses: Abdominal pain, Diverticulitis Discharge - Discharge Plan Condition: Stable Disposition: HOME Prescriptions: Ciprofloxacin TAB* [Cipro Tab*] 500 mg PO BID #20 tab Metronidazole [Flagyl 500 MG TAB] 500 mg PO TID #30 tab oxyCODONE/Acetamin 5/325 MG* [Percocet 5/325 TAB*] 1 tab PO Q6H PRN #20 tab MDD 4 PRN Reason: Pain Patient Education Materials: Ciprofloxacin (By mouth), Oxycodone/Acetaminophen (By mouth), Metronidazole (By mouth), Diverticulitis (ED), Acute Abdominal Pain (ED) Referrals: Vu Bell MD [Primary Care Provider] - Additional Instructions: RETURN TO THE EMERGENCY DEPARTMENT FOR CHANGING OR WORSENING SYMPTOMS. The documentation as recorded by the Khushi johnson Gabriel accurately reflects the service I personally performed and the decisions made by , Neto Chua MD.
== END 2017-03-07 15:32 | disposition home or self-care (01) ==
LOC: ED 10:25
DX: K57.32 Diverticulitis of large intestine without perforation or abscess without bleeding (principal)
CPT/HCPCS: 36415; 74176; 80053; 81003; 81015; 83605; 83690; 85025; 86140; 96374; 96375; 99282; A9270-GY

== ENCOUNTER 2017-05-01 08:54 | Emergency (ER) | payer BC ==
[2017-05-01 09:02] VITALS: BP 151/107
--- NOTE | 2017-05-01 09:17 | UC ---
Epistaxis Nasal HPI - HPI Summary HPI Summary: 56M presents with sinus congestion for three days. He states has history of sinus infections. He admits to post nasal drip. He has a cough that is worst in the morning. He denies any chest pain or SOB. He admits to headache. He states all of his symptoms seem to become coming from his nose. He tried some robitussin. medication reviewed. - History of Current Complaint Chief Complaint: UCGeneralIllness Stated Complaint: CONGESTED, SORE THROAT Time Seen by Provider: 05/01/17 09:06 Pain Intensity: 0 - Allergies/Home Medications Allergies/Adverse Reactions: Allergies Allergy/AdvReac Type Severity Reaction Status Date / Time No Known Allergies Allergy Verified 05/01/17 09:02 Home Medications: Home Medications Dexlansoprazole [Dexilant] 1 cap PO DAILY 05/01/17 [History Confirmed 05/01/17] PMH/Surg Hx/FS Hx/Imm Hx Endocrine History: Hypothyroidism Respiratory History: Other Other Respiratory History: no asthma Other History Of: Negative For: HIV, Hepatitis B, Hepatitis C, Anticoagulant Therapy - Surgical History Surgical History: Yes Surgery Procedure, Year, and Place: Left wrist surgeries(GANGLION CYSTS) - 3 TOTAL. 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 - Family History Known Family History: Positive: Hypertension, Other - [place] Negative: Cardiac Disease, Respiratory Disease - Social History Alcohol Use: Rare Substance Use Type: None Smoking Status (MU): Never Smoked Tobacco Have You Smoked in the Last Year: No - Immunization History Most Recent Influenza Vaccination: unknown Most Recent Tetanus Shot: up to date Most Recent Pneumonia Vaccination: never Review of Systems Constitutional: Negative ENT: Sore Throat, Nasal Discharge Respiratory: Cough Cardiovascular: Negative All Other Systems Reviewed And Are Negative: Yes Physical Exam Triage Information Reviewed: Yes Appearance: Well-Appearing Vital Signs: Initial Vital Signs Temp 98.6 F 05/01/17 08:59 Pulse 104 05/01/17 08:59 Resp 20 05/01/17 08:59 BP 151/107 05/01/17 08:59 Pulse Ox 100 05/01/17 08:59 Vital Signs Reviewed: Yes Eyes: Positive: Conjunctiva Clear ENT: Positive: Pharynx normal, Nasal congestion, TMs normal Neck: Positive: Supple, Nontender, No Lymphadenopathy Respiratory: Positive: Lungs clear, Normal breath sounds Cardiovascular: Positive: RRR Abdomen Description: Positive: Nontender, Soft Bowel Sounds: Positive: Present Musculoskeletal Exam: Normal Neurological Exam: Normal Psychological Exam: Normal Skin Exam: Normal Epistaxis Nasal Course/Dx - Course Course Of Treatment: 56M presents with sinus congestion for three days. He states has history of sinus infections. He admits to post nasal drip. He has a cough that is worst in the morning. He denies any chest pain or SOB. He admits to headache. He states all of his symptoms seem to become coming from his nose. He tried some robitussin. on exam has sinus congestion. lungs CTA. flu neg. strept neg. will treat as viral but will send script for antibiotic if no improvement in 5 days. patient understand and agrees with plan. - Differential Dx/Diagnosis Differential Diagnosis/HQI/PQRI: Sinusitis, Other - upper resp, flu Provider Diagnoses: viral sinusitis, elevated blood pressure Discharge - Discharge Plan Condition: Good Disposition: HOME Patient Education Materials: Rhinosinusitis (ED) Referrals: Vu Bell MD [Primary Care Provider] - Additional Instructions: Use saline spray in nose as much as needed Use humidifier in room or can use warm water in bowls Use intranasal steroid one spray each nostril twice a day If symptoms continue for 5 more days start antibiotic then twice a day for 10 days Take Tylenol for headache every 6 hours Follow up with primary in 5 days as blood pressure is elevated at this visit Return to ED if develop any new or worsening symptoms
--- OUTSIDE RECORDS SUMMARY | 2017-05-01 09:18 | XMS REPORT ---
:1960 External Reference #:[id number] Author Organization [employer] [facility] Address [address] [place] [address] Phone [phone] Care Team Providers Name Role Phone Vu Bell M.D. Primary Care Physician Unavailable Payers Type Date Identification Numbers Payment Provider Subscriber Commercial Policy Number: [id number] BS [employer] Phuong Pendleton PayID: [id number] [address] [place] [id number] Problems Date Description Provider Status Onset: Hypothyroidism Active Onset: Decreased testosterone level Active Onset: 04/02/2015 Combined form of senile cataract Gina Maza O.D. Active Onset: 11/09/2015 Nuclear senile cataract Doug Watson M.D. Active Onset: 11/09/2015 Presbyopia Doug Watson M.D. Active Onset: Diverticulosis of colon without Active diverticulitis Onset: 04/06/2017 Visual field defect Gina Maza O.D. 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 ETOH Use Rarely consumes alcohol Smoking Patient has never smoked Recreational Drug Use Denies Drug Use Daily Caffeine Does Not Consume Caffeine occasional soda Allergies, Adverse Reactions, Alerts Date Description Reaction Status Severity Comments 03/20/2015 NKDA active Medications Medication Date Status Form Strength Qnty SIG Indications Ordering Provider Testosterone Active Solution 200mg/ml Inject 1.5ML Unknown Cypionate /0000 Intramuscularly Every 2 Weeks Levothyroxine Active Tablets 188mcg daily Unknown Sodium /0000 Omeprazole Active Capsules 40mg Unknown /0000 DR Ibuprofen Active Tablets 800mg Unknown /0000 Viagra Active Tablets 100mg Unknown / Flomax Active Capsules 0.4mg daily Unknown / Levothyroxine Hx Tablets 200mcg Unknown - 09/13 Results Description No Information Procedures Date CPT Code Description Status 09/14/2016 65160 Determination Of Refractive State Completed 09/14/2016 12312 Est Patient Comprehensive Exam Completed 04/04/2016 65546 Est Patient Comprehensive Exam Completed 11/09/2015 93335 Est Patient Comprehensive Exam Completed 11/04/2015 91082 Est Patient Comprehensive Exam Completed 04/02/2015 33861 Est Patient Comprehensive Exam Completed 03/20/2014 69346 New Patient Comprehensive Exam Completed 06/14/2010 13911 Determination Of Refractive State Completed 06/14/2010 10182 New Patient Comprehensive Exam Completed Plan of Care 04/06/2017 - Gina Mzaa O.D.H25.813 Combined forms of age-related cataract, bilateralFollow up:1 Year Follow UpH53.451 Other localized visual field defect, right eye
--- OUTSIDE RECORDS SUMMARY | 2017-05-01 09:18 | XMS REPORT ---
:1960 External Reference #:[id number] Author Organization [facility] Address [address] [place] [address] Phone [phone] Care Team Providers Name Role Phone HCP given Primary Care Physician Unavailable Payers Type Date Identification Numbers Payment Provider Subscriber Commercial Policy Number: [id number] Phuong Ind/Ppo/Hmo/Pos Adele Pendleton Group Number: [id number] [address] [address] PayID: [id number] LAZARO Coello [address] Medigap Part B Effective: Policy Number: Phuong Moran 2012 [id number] Ind/Ppo/Hmo/Pos Helder Expires: 2013 PayID: [id number] [address] [address] LAZARO Coello [address] Problems Date Description Provider Status Onset: 04/14/2010 Hypothyroidism Vu Bell M.D. Active Onset: 04/14/2010 Impotence of organic origin Vu Bell M.D. Active Onset: 04/14/2010 Disorder of lipid metabolism Vu Bell M.D. Active Onset: 04/14/2010 Obstructive sleep apnea syndrome Vu Bell M.D. Active Onset: 10/19/2010 Eosinophilic esophagitis Vu Bell M.D. Active Onset: 02/12/2013 Low back pain Omid Hood D.O. Active Onset: 02/12/2013 Myalgia & Myositis Unspec Omid Hood D.O. Active Onset: 02/12/2013 Benign essential hypertension Omid Hood D.O. Active Onset: 03/20/2015 Testicular hypofunction Vu Bell M.D. Active Onset: 03/20/2015 Disorder of fatty acid metabolism Vu Bell M.D. Active Onset: 03/20/2015 Essential hypertension Vu Bell M.D. Active Family History Date Family Member(s) Problem(s) Comments General Mat aunt w/ breast CA and of CVA; Mat uncle had some kind of cancer : (2009) Father due to Natural Causes Mother Cerebrovascular Accident (CVA) ~age 70 First Daughter Kanika First Daughter 02/01/96 Number of Siblings Siblings: 1 sister. 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 Sun Exposure minimum amount of sun exposure Sun Exposure Uses sunscreen Seat Belt/Car Seat always uses seat belt Allergies, Adverse Reactions, Alerts Date Description Reaction Status Severity Comments 12/09/2005 NKDA active Medications Medication Date Status Form Strength Qnty SIG Indications Ordering Provider Gabapentin 04/24/19 Active Capsules 100mg 90caps 1 by mouth M25.511 Silcoff, 18 at night on 1 then M.D. 1 in in the morning and at bedtime on 2 then 1 capsule 3x/day; then inc as advised M25.512 BD 3ML 04/24/2017 Active Misc 23G X 10units use as directed, E29.1 Gaby Bell 1-1/2" q2-3weeks, for Vu Syringe/23G X 3 ML administration M.D. 1-1/2" of testosterone Dexilant 04/23/2017 Active Capsule 60mg take one capsule Unknown s DR by mouth once to twice a day Tamsulosin HCL 04/23/2017 Active Capsule 0.4mg 1 by mouth every Unknown s day Levothyroxine 08/15/2016 Active Tablets 100mcg 90tabs take 1 tablet by E03.9 Silcoff, Sodium mouth every , morning on an M.D. empty stomach (along with an 88mcg strength tab); for thyroid Levothyroxine 08/15/2016 Active Tablets 88mcg 90tabs take 1 tablet by E03.9 Silcoff, Sodium mouth every [facility], morning on an M.D. empty stomach (along with a 100mcg strength tab); for thyroid Testosterone 07/06/2016 Active Solutio 200mg/m 3ml inject 1.5cc N52.9 Silcoff, Cypionate n l intramuscularly Vu, every 2wks; for M.D. testosterone replacement; mdd 1.5cc q2wks E29.1 Viagra 07/07/2003 Active Tablets 100mg 6tabs 1 by mouth as N52.9 Silcoff, needed for ed Melanie Womack Levothyroxine 08/06/2016 Hx Tablets 200mcg 90tabs take 1 tab by E03.9 Silcoff, Sodium - mouth 6d/wk and [facility] 08/15/2016 1/2 tab 1d/wk; M.D. take in the morning on an empty stomach; for thyroid; blood test due Oct 2016 Levothyroxine 07/06/2016 Hx Tablets 200mcg 90tabs take 1 tablet by E03.9 Silcoff, Sodium - mouth every [facility], 08/06/2016 morning on an M.D. empty stomach; for thyroid Metronidazole 07/03/2016 Hx Tablets 500mg 20tabs take 1 tablet by Unknown - mouth twice a 07/06/2016 day for 10 days Ciprofloxacin 07/03/2016 Hx Tablets 500mg 20tabs Take 1 Tablet Unknown HCL - Twice Daily 07/06/2016 Levothyroxine 03/20/2015 Hx Tablets 200mcg 60tabs take 1 tablet by E03.9 Silcoff, Sodium - mouth in the [facility], 07/06/2016 morning on an M.D. empty stomach 5x/wk (take 175mcg/d 2x/wk) Levothyroxine 03/20/2015 Hx Tablets 175mcg 25tabs take 1 tablet by E03.9 Silcoff, Sodium - mouth in the [facility], 07/06/2016 morning on an M.D. empty stomach 2x/wk (take 200mcg on other days) Testosterone 03/19/2015 Hx Solution 200mg/ 10ml inject 1.5cc N52.9 Silcoff, Cypionate - ml intramuscularly [facility] 07/05/2016 every 2wks MDD: M.D. 1.5cc q2wks E29.1 Ibuprofen 09/16/2014 - Hx Tablets 800mg 90tabs 1 by mouth every Silcoff, 04/23/2017 8 hours as needed Vu, for joint pain M.D. Levothyroxine 09/14/2014 - Hx Tablets 175mcg 90tabs take 1 tablet by E0 Silcoff, Sodium 03/20/2015 mouth every 3. Vu, morning on an 9 M.D. empty stomach Levothyroxine 06/17/2014 - Hx Tablets 175mcg 45tabs 1 by mouth every 24 Silcoff, Sodium 09/14/2014 other day 4. Vu, (alternating with 9 M.D. 200mcg strength) in the morning on an empty stomach Levothyroxine 06/17/2014 - Hx Tablets 200mcg 45tabs take one tablet 24 Silcoff, Sodium 09/14/2014 by mouth every 4. Vu, other day 9 M.D. (alternating with 175mcg strength) in the morning on an empty stomach; for thyroid Testosterone 06/17/2014 - Hx Solution 200mg/ml 10ml inject 1.5cc 60 Silcoff, Cypionate 03/19/2015 intramuscularly 7. Vu every 3wks 84 M.D. E29.1 Diazepam 06/14/2014 - Hx Tablets 5mg 15tabs Take 1 Tablet By Unknown 07/05/2016 Mouth 3 Times Daily as Needed. Max/Day=3 Naproxen 06/14/2014 - Hx Tablets 500mg 14tabs Take 1 Tablet By Unknown 07/14/2014 Mouth Twice Daily Testosterone 03/25/2014 - Hx Solution 200mg/ 10ml inject 1.5cc 607 Silcoff, Cypionate 06/17/2014 ml intramuscularly .84 Vu, every 2wks M.D. 257.8 Levothyroxine 03/25/2014 - Hx Tablets 200mcg 90tabs take one 244.9 Silcoff, Sodium 06/17/2014 tablet by Vu, mouth every M.D. morning on an empty stomach; for thyroid Metronidazole 03/13/2014 - Hx Tablets 500mg 42tabs Take 1 Unknown 03/20/2014 Tablet By Mouth 3 Times Daily x 14 days Oxycodone-Acetam 03/13/2014 - Hx Tablets 5-325mg 20tabs Take 1 Or 2 Unknown inophen 07/05/2016 Tabs By Mouth Every 4 Hours as Needed For Pain. Max/Day= Ciprofloxacin 03/13/2014 - Hx Tablets 500mg 28tabs Take 1 Unknown HCL 03/21/2014 Tablet By Mouth Every 12 Hours x 14 days Ciprofloxacin 03/13/2014 - Hx Tablets 500mg Take 1 562.11 Unknown HCL 03/27/2014 Tablet By Mouth Every 12 Hours Metronidazole 03/13/2014 - Hx Tablets 500mg Take 1 562.11 Unknown 03/27/2014 Tablet By Mouth 3 Times Daily Flovent HFA 01/22/2014 - Hx Aerosol 110mcg/Ac 3units 2 puffs 530.13 Maverick Thacker 06/16/2014 t twice a day Gurinder swallowed M.DPorsche (not inhaled) 787.24 Omeprazole 01/22/2014 - Hx Capsules DR 40mg 90caps 1 by mouth R13.14 Maverick Thacker 04/23/2017 every day Melanie Mejia for acid reflux K20.0 BD 3ML Luer-Gabriel 09/04/2013 - Hx Misc 23G X 10units use as Silcoff, Syringe/23G X 07/05/2016 1-1/2" 3 directed, Vu, 1-1/2" ML q2-3weeks, for M.D. administration of testosterone Scopolamine 04/22/2013 - Hx Patch 1.5mg 4units 1 ptch every 3 994. Sopchak, Transdermal 06/04/2013 days as needed 6 Omid, Patch for motion D.O. sickness BD Integra Syr 06/29/2011 - Hx 3ml 10units use 1 Silcoff, 09/04/2013 milliliter Vu, syringe every M.D. 2-3 weeks as directed Clarithromycin 01/18/2011 - Hx Tablets 250mg 20tabs 1 po bid 462 Maverick 01/28/2011 Kedar Mejia M.D. Levothyroxine 10/19/2010 - Hx Tablets 175mcg 90tabs take 1 tablet 244. Silcoff, Sodium 03/25/2014 by mouth every 9 Vu, morning on an M.D. empty stomach Tamsulosin HCL 10/18/2010 - Hx Capsules 0.4mg 2 by mouth Lisasejelena, 10/18/2012 every day 30min MD Dawson after the evening meal Oxybutynin 04/28/2010 - Hx Tablets ER 10mg 30tabs 1 po qpm 788. Silcoff , Chloride ER 10/18/2010 24HR 43 Melanie Womack PT For Tennis 04/14/2010 - Hx Right evaluate and 726. Silcoff, Elbow 10/18/2010 Arm treat, 32 catherine Womack M.D. instruct in hep PT For Bilateral 04/14/2010 - Hx evaluate and 719. Silcoff, Shoulder Pain 10/18/2010 treat, 41 catherine Womack M.D. instruct in hep Oxybutynin 11/02/2009 - Hx Tablets ER 5mg 60tabs 1 po qpm to 788. Silcoff, Chloride ER 04/14/2010 24HR start. increase 43 Vu to 2 pills qpm M.D. in 2wks if symptoms not improved Ibuprofen 11/01/2009 - Hx Tablets 800mg 90tabs 1 by mouth 724. Silcoff, 09/16/2014 three times a 2 pushpa Womack as needed M.D. for joint pain Depo-Testosteron 05/13/2009 - Hx Solution 200mg/ml 10ml inject 1cc 607. Gertrudecoff, e 03/25/2014 q2-3wks 84 Melanie Womack 257.8 Tizanidine HCL 01/17/2009 - Hx Tablets 4mg 90tabs one tablet 724.2 Silcoff, 11/01/2009 po q6h prn steve Womack back M.D. pain PT For Right 01/17/2009 - Hx evaluate and 719.41 Silcoff, Shoulder Pain 11/01/2009 treat, catherine Womack M.D. prn, instruct in hep Levothyroxine 01/17/2009 - Hx Tablets 150mc 90tabs take 1 244.9 Silcoff , Sodium 10/19/2010 g tablet by Vu mouth Every M.D. Morning On An Empty Stomach Depo-Testosterone 11/04/2008 - Hx Oil 200mg 10ml inject 1cc 607.84 Silcoff, 05/13/2009 /ml q2wks Melanie Womack Syringes/Erick 11/04/2008 - Hx 10units PLease 607.84 Silcoff, For Testosterone 05/06/2013 provide 22g, Vu, Administration 1.5" needles M.D. with 3cc syringes Androderm 08/13/2008 - Hx Patches 2.5mg 30units apply 1 607.84 Silcoff, 11/04/2008 24HR /24HR patch to Vu skin as M.D. directed; change daily; may increase to 2 patches/day if not helpful after 1wk Oxybutynin 07/04/2008 - Hx Tablets ER 5mg 60tabs 1 po qpm to 788.43 Silcoff, Chloride ER 11/01/2009 24HR start. Vu, Increase to M.D. 2 pills Qpm in 2wks if symptoms not improved Amlodipine 04/04/2008 - Hx Tablets 10mg 30tabs 1 po qd for 443.0 Silcoff, Besylate 07/03/2008 high blood Vu pressure M.D. 796.2 Amlodipine 02/13/2008 - Hx Tablets 5mg 90tabs 1 PO qd For 443.0 Silcoff , Besylate 04/04/2008 Raynaud's Melanie Womack Syndrome and High Blood Pressure 796.2 Diazepam 09/11/2007 - Hx Tablets 5mg 15tabs 1 po q8h prn 724.2 Silcoff, 11/01/2009 for severe Vu muscle M.D. spasms in back Oxycodone HCL 09/11/2007 - Hx Tablets 5mg 30tabs 1-2 po q4h 724.2 Silcoff, 11/01/2009 prn for Vu severe back M.D. pain Levothyroxine 05/26/2007 - Hx Tablets 125mcg 60tabs 1 PO qam On 244.9 Silcoff, Sodium 01/17/2009 An Empty Vu, Stomach M.D. Levothyroxine 05/16/2007 - Hx Tablets 100mcg 1 PO qam 244.9 Unknown 05/26/2007 Ambien CR 05/16/2007 - Hx Tablets ER 12.5mg 30tabs 1 po qhs prn 780.52 Silcoff, 04/05/2012 for sleep; Vu, take only if M.D. you have at least 8hrs to devote to sleep. PT For Chronic 05/16/2007 - Hx please 724.2 Silcoff, Low Back Pain 07/03/2008 evaluate and carrillo Womack M.D. modalities prn, instruct in hep Dilaudid 01/04/2006 - Hx Tablets 2mg 90tabs 1-2 PO Q4H 719.41 klepack 05/16/2007 Pain DO Not Operate Heavy Equipment While On Medication Ambien 05/18/2005 - Hx 0 10mg 30units 1 PO qpm klepack 05/18/2005 Ambien 05/18/2005 - Hx Tablets 10mg. 30tabs 1 po qhs 780.52 klepack 05/16/2007 Flexeril 08/11/2004 - Hx Tablets 10mg 90tabs 1 po tid 724.2 Silcoff, 01/17/2009 Melanie Womack do not operate heavy equipment while on meds Shoulder Pain 08/11/2004 - Hx has had 719.41 klepack 05/16/2007 shoulder pain for the past 3 weeks. suggest extension for PT test of one month. Viagra 07/07/2003 - Hx Tabs 100mg 6tabs Take 1 607.84 Silcoff, 10/18/2010 Tablet By Cathy Womack If Melanie Needed as Directed Ambien 04/04/2003 - Hx Tablets 5mg 30tabs 2 po qhs klepack 05/18/2005 first three days of new sleep cycle. 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 Norflex 10/25/2002 - Hx Tablets 100mg 60tabs 1 po qd prn klepack 05/16/2007 Relafen 10/25/2002 - Hx Tablets 500mg 60tabs 1 po qd prn klepack 05/16/2007 Medications Administered in Office Medication Date Status Form Strength Qnty SIG Indications Ordering Provider Toradol 15MG. Administered Injection Sopchak, 013 Omid, D.O. SC/Im Administered Injection Sopchak, Injections 013 Omid, D.O. Immunizations CPT Code Status Date Vaccine Lot # 13474 Given 05/16/2007 Adacel or Boostrix, TDaP [id number] Given 12/14/2004 Unlisted Immunization Procedure [id number] Given 02/27/2004 Hep B Immunization, Adult [id number] Refused 04/17/2013 Flu, Split Virus 3Yrs [id number] Refused 04/06/2012 Flu, Split Virus 3Yrs Vital Signs Date Vital Result Comment 04/24/2017 BP Systolic 138 mmHg BP Diastolic 82 mmHg BP Systolic Recheck 140 mmHg R arm sitting BP Diastolic Recheck 96 mmHg R arm sitting Height 68.5 inches 5'8.50" Weight 220.00 lb BMI (Body Mass Index) 33.0 kg/m2 07/06/2016 BP Systolic 142 mmHg BP Diastolic 70 mmHg Weight 220.00 lb 03/20/2015 BP Systolic 138 mmHg BP Diastolic 90 mmHg BP Systolic Recheck 158 mmHg R arm sitting BP Diastolic Recheck 94 mmHg R arm sitting Height 68.75 inches 5'8.75" Weight 227.00 lb BMI (Body Mass Index) 33.8 kg/m2 09/16/2014 BP Systolic 120 mmHg BP Diastolic 80 mmHg BP Systolic Recheck 128 mmHg R arm sitting BP Diastolic Recheck 84 mmHg R arm sitting Height 69 inches 5'9" Weight 212.00 lb BMI (Body Mass Index) 31.3 kg/m2 06/17/2014 BP Systolic 150 mmHg BP Diastolic 84 mmHg Weight 224.00 lb 03/25/2014 BP Systolic 140 mmHg BP Diastolic 90 mmHg BP Systolic Recheck 134 mmHg R arm sitting BP Diastolic Recheck 92 mmHg R arm sitting Weight 222.00 lb 01/22/2014 BP Systolic 146 mmHg BP Diastolic 100 mmHg BP Systolic Recheck 148 mmHg BP Diastolic Recheck 102 mmHg Body Temperature 98.0 F Height 68.75 inches 5'8.75" Weight 231.00 lb BMI (Body Mass Index) 34.4 kg/m2 09/04/2013 BP Systolic 150 mmHg BP Diastolic 100 mmHg BP Systolic Recheck 152 mmHg R arm sitting BP Diastolic Recheck 98 mmHg R arm sitting Weight 230.00 lb shoes on 05/07/2013 BP Systolic 141 mmHg BP Diastolic 86 mmHg BP Systolic Recheck 132 mmHg R arm w/ auto cuff; 130/82 w/ lg manual cuff BP Diastolic Recheck 84 mmHg R arm w/ auto cuff; 130/82 w/ lg manual cuff Heart Rate 88 /min 04/17/2013 BP Systolic 160 mmHg BP Diastolic 80 mmHg BP Systolic Recheck 148 mmHg R arm sitting BP Diastolic Recheck 90 mmHg R arm sitting Heart Rate 58 /min reg Respiratory Rate 12 /min not laboured Height 68.75 inches 5'8.75" Weight 221.00 lb BMI (Body Mass Index) 32.9 kg/m2 02/12/2013 BP Systolic 140 mmHg please recheck this BP Diastolic 108 mmHg please recheck this 02/05/2013 BP Systolic 144 mmHg BP Diastolic 98 mmHg Height 68.75 inches 5'8.75" Weight 230.00 lb BMI (Body Mass Index) 34.2 kg/m2 04/06/2012 BP Systolic 140 mmHg BP Diastolic 92 mmHg BP Systolic Recheck 138 mmHg R arm sitting BP Diastolic Recheck 100 mmHg R arm sitting Heart Rate 76 /min reg Respiratory Rate 12 /min not laboured Height 68.75 inches 5'8.75" Weight 219.00 lb BMI (Body Mass Index) 32.6 kg/m2 01/18/2011 BP Systolic 126 mmHg BP Diastolic 70 mmHg Heart Rate 80 /min Respiratory Rate 16 /min Body Temperature 97.8 F Weight 222.00 lb 10/19/2010 BP Systolic 138 mmHg BP Diastolic 82 mmHg Height 68.50 inches 5'8.50" Weight 220.00 lb BMI (Body Mass Index) 33.0 kg/m2 04/14/2010 BP Systolic 134 mmHg BP Diastolic 84 mmHg Height 68.75 inches 5'8.75" Weight 216.00 lb BMI (Body Mass Index) 32.1 kg/m2 03/02/2010 BP Systolic 134 mmHg BP Diastolic 92 mmHg Weight 226.00 lb Last Menstrual Period 0 11/02/2009 BP Systolic 132 mmHg BP Diastolic 90 mmHg Heart Rate 68 /min reg Respiratory Rate 12 /min not laboured Height 68.50 inches 5'8.50" Weight 214.00 lb BMI (Body Mass Index) 32.1 kg/m2 Last Menstrual Period 0 05/13/2009 BP Systolic 130 mmHg BP Diastolic 90 mmHg Weight 218.00 lb 01/17/2009 BP Systolic 124 mmHg BP Diastolic 76 mmHg Height 69 inches 5'9" Weight 216.00 lb BMI (Body Mass Index) 31.9 kg/m2 11/13/2008 BP Systolic 138 mmHg BP Diastolic 88 mmHg Body Temperature 98.2 F 11/13/2008 BP Systolic 138 mmHg BP Diastolic 88 mmHg Body Temperature 98.2 F 11/04/2008 BP Systolic 116 mmHg BP Diastolic 88 mmHg Weight 212.00 lb 08/13/2008 BP Systolic 120 mmHg BP Diastolic 76 mmHg Height 68.50 inches 5'8.50" Weight 210.00 lb BMI (Body Mass Index) 31.5 kg/m2 Last Menstrual Period 0 07/04/2008 BP Systolic 138 mmHg BP Diastolic 84 mmHg BP Systolic Recheck 134 mmHg R arm sitting BP Diastolic Recheck 94 mmHg R arm sitting Weight 210.00 lb 04/04/2008 BP Systolic 120 mmHg BP Diastolic 86 mmHg Weight 210.00 lb Last Menstrual Period 0 02/13/2008 BP Systolic 130 mmHg BP Diastolic 98 mmHg BP Systolic Recheck 156 mmHg R arm sitting BP Diastolic Recheck 104 mmHg R arm sitting Height 69 inches 5'9" Weight 224.00 lb BMI (Body Mass Index) 33.1 kg/m2 09/11/2007 BP Systolic 134 mmHg BP Diastolic 80 mmHg Height 69 inches 5'9" Weight 220.00 lb BMI (Body Mass Index) 32.5 kg/m2 08/29/2007 BP Systolic 130 mmHg BP Diastolic 80 mmHg Height 69 inches 5'9" Weight 220.00 lb BMI (Body Mass Index) 32.5 kg/m2 05/16/2007 BP Systolic 124 mmHg BP Diastolic 80 mmHg Height 69 inches 5'9" Weight 214.50 lb BMI (Body Mass Index) 31.7 kg/m2 01/04/2006 BP Systolic 140 mmHg BP Diastolic 90 mmHg Height 69 inches 5'9" Weight 210.00 lb BMI (Body Mass Index) 31.0 kg/m2 12/09/2005 BP Systolic 124 mmHg BP Diastolic 92 mmHg Height 69 inches 5'9" Weight 207.50 lb BMI (Body Mass Index) 30.6 kg/m2 12/05/2005 BP Systolic 110 mmHg BP Diastolic 90 mmHg Height 69 inches 5'9" Weight 210.00 lb BMI (Body Mass Index) 31.0 kg/m2 06/16/2005 BP Systolic 134 mmHg BP Diastolic 76 mmHg Height 69 inches 5'9" 05/17/2005 BP Systolic 136 mmHg BP Diastolic 84 mmHg Height 69 inches 5'9" Weight 203.00 lb BMI (Body Mass Index) 30.0 kg/m2 08/11/2004 BP Systolic 120 mmHg lg cuff BP Diastolic 82 mmHg lg cuff Height 69 inches 5'9" Weight 221.00 lb BMI (Body Mass Index) 32.6 kg/m2 02/27/2004 BP Systolic 130 mmHg BP Diastolic 78 mmHg Weight 217.00 lb Last Menstrual Period 0 Results Test Date Test Result H/L Range Note Laboratory test finding 03/07/2017 Lipase 43 U/L 11.0-82.0 C Reactive Protein 19.29 mg/L High < 5.00 1 Lactic Acid 0.8 mmol/L 0.5-2.0 2 Urinalysis Profile 03/07/2017 Urine Color Yellow Urine Appearance Clear Urine Specific [place] 1.020 1.010-1.030 Urine pH 6.0 5-9 Urine Urobilinogen Negative Negative Urine Ketones Negative Negative Urine Protein Negative Negative Urine Leukocytes Negative Negative Urine Blood 1+ Negative Urine Nitrite Negative Negative Urine Bilirubin Negative Negative Urine Glucose Negative Negative Urine White Blood Cell Absent Absent Urine Red Blood Cell 2+(6-10/hpf) Absent Urine Bacteria Absent Absent CBC Auto Diff 03/07/2017 White Blood Count 5.6 10^3/uL 3.5-10.8 Red Blood Count 4.94 10^6/uL 4.0-5.4 Hemoglobin 14.9 g/dL 14.0-18.0 Hematocrit 44 % 42-52 Mean Corpuscular Volume 88 fL 80-94 Mean Corpuscular Hemoglobin 30 pg 27-31 Mean Corpuscular HGB Conc 34 g/dL 31-36 Red Cell Distribution Width 13 % 10.5-15 Platelet Count 292 10^3/uL 150-450 Mean Platelet Volume 7 um3 Low 7.4-10.4 Abs Neutrophils 3.4 10^3/uL 1.5-7.7 Abs Lymphocytes 1.2 10^3/uL 1.0-4.8 Abs Monocytes 0.6 10^3/uL 0-0.8 Abs Eosinophils 0.3 10^3/uL 0-0.6 Abs Basophils 0.1 10^3/uL 0-0.2 Abs Nucleated RBC 0 10^3/uL Granulocyte % 61.0 % 38-83 Lymphocyte % 20.8 % Low 25-47 Monocyte % 10.7 % High 1-9 Eosinophil % 6.2 % High 0-6 Basophil % 1.3 % 0-2 Nucleated Red Blood Cells % 0.1 Comp Metabolic Panel 03/07/2017 Sodium 136 mmol/L 133-145 Potassium 4.6 mmol/L 3.5-5.0 Chloride 104 mmol/L 101-111 Co2 Carbon Dioxide 27 mmol/L 22-32 Anion Gap 5 mmol/L 2-11 Glucose 97 mg/dL 70-100 Blood Urea Nitrogen 26 mg/dL High 6-24 Creatinine 1.13 mg/dL 0.67-1.17 BUN/Creatinine Ratio 23.0 High 8-20 Calcium 9.1 mg/dL 8.6-10.3 Total Protein 7.1 g/dL 6.4-8.9 Albumin 4.1 g/dL 3.2-5.2 Globulin 3.0 g/dL 2-4 Albumin/Globulin Ratio 1.4 1-3 Total Bilirubin 0.70 mg/dL 0.2-1.0 Alkaline Phosphatase 56 U/L 34-104 Alt 53 U/L High 7-52 Ast 31 U/L 13-39 Egfr Non- 67.1 >60 Egfr 86.3 >60 3 Laboratory test finding 01/09/2017 PSA Screening 1.419 ng/mL 0-4.0 4 Laboratory test finding 12/05/2016 Surgical Pathology SEE RESULT BELOW 5 CBC Auto Diff 08/05/2016 White Blood Count 6.5 10^3/uL 3.5-10.8 6 Red Blood Count 5.11 10^6/uL 4.0-5.4 6 Hemoglobin 15.2 g/dL 14.0-18.0 6 Hematocrit 46 % 42-52 6 Mean Corpuscular Volume 89 fL 80-94 6 Mean Corpuscular Hemoglobin 30 pg 27-31 6 Mean Corpuscular HGB Conc 33 g/dL 31-36 6 Red Cell Distribution Width 13 % 10.5-15 6 Platelet Count 324 10^3/uL 150-450 6 Mean Platelet Volume 7 um3 Low 7.4-10.4 6 Abs Neutrophils 4.2 10^3/uL 1.5-7.7 6 Abs Lymphocytes 1.4 10^3/uL 1.0-4.8 6 Abs Monocytes 0.6 10^3/uL 0-0.8 6 Abs Eosinophils 0.3 10^3/uL 0-0.6 6 Abs Basophils 0.1 10^3/uL 0-0.2 6 Abs Nucleated RBC 0 10^3/uL 6 Granulocyte % 63.7 % 38-83 6 Lymphocyte % 22.1 % Low 25-47 6 Monocyte % 8.9 % 1-9 6 Eosinophil % 4.1 % 0-6 6 Basophil % 1.2 % 0-2 6 Nucleated Red Blood Cells % 0 6 Basic Metabolic Panel 08/05/2016 Sodium 137 mmol/L 133-145 6 Potassium 4.4 mmol/L 3.5-5.0 6 Chloride 103 mmol/L 101-111 6 Co2 Carbon Dioxide 27 mmol/L 22-32 6 Anion Gap 7 mmol/L 2-11 6 Glucose 86 mg/dL 70-100 6 Blood Urea Nitrogen 17 mg/dL 6-24 6 Creatinine 1.22 mg/dL High 0.67-1.17 6 BUN/Creatinine Ratio 13.9 8-20 6 Calcium 9.1 mg/dL 8.6-10.3 6 Egfr Non- 61.7 >60 6 Egfr 79.3 >60 6, 7 Laboratory test 08/05/2016 TSH (Thyroid Stim 0.31 mcIU/mL Low 0.34-5.60 6 , 8 finding Horm) PSA Screening 1.634 ng/mL 0-4.000 6, 9 Testosterone Free & 08/05/2016 Free Testosterone 7.90 ng/dL 3.87- 14.7 6, 10 Total ng/dl Testosterone 304 ng/dL 240-950 6, 11 Laboratory test 07/06/2016 PSA Screening 1.845 ng/mL 0-4.000 12 finding Laboratory test 07/06/2016 TSH (Thyroid Stim 8.19 mcIU/mL High 0.34-5.60 finding Horm) Laboratory test 07/02/2016 Lactic Acid 1.8 mmol/L 0.5-2.0 13 finding CBC Auto Diff 07/02/2016 White Blood Count 9.8 10^3/uL 3.5-10.8 Red Blood Count 5.09 10^6/uL 4.0-5.4 Hemoglobin 15.2 g/dL 14.0-18.0 Hematocrit 45 % 42-52 Mean Corpuscular Volume 89 fL 80-94 Mean Corpuscular Hemoglobin 30 pg 27-31 Mean Corpuscular HGB Conc 34 g/dL 31-36 Red Cell Distribution Width 13 % 10.5-15 Platelet Count 322 10^3/uL 150-450 Mean Platelet Volume 7 um3 Low 7.4-10.4 Abs Neutrophils 7.7 10^3/uL 1.5-7.7 Abs Lymphocytes 1.3 10^3/uL 1.0-4.8 Abs Monocytes 0.7 10^3/uL 0-0.8 Abs Eosinophils 0.1 10^3/uL 0-0.6 Abs Basophils 0.1 10^3/uL 0-0.2 Abs Nucleated RBC 0 10^3/uL Granulocyte % 78.4 % 38-83 Lymphocyte % 13.2 % Low 25-47 Monocyte % 6.7 % 1-9 Eosinophil % 1.0 % 0-6 Basophil % 0.7 % 0-2 Nucleated Red Blood Cells % 0 Comp Metabolic Panel 07/02/2016 Sodium 137 mmol/L 133-145 Potassium 3.6 mmol/L 3.5-5.0 Chloride 101 mmol/L 101-111 Co2 Carbon Dioxide 27 mmol/L 22-32 Anion Gap 9 mmol/L 2-11 Glucose 93 mg/dL 70-100 Blood Urea Nitrogen 16 mg/dL 6-24 Creatinine 1.28 mg/dL High 0.67-1.17 BUN/Creatinine Ratio 12.5 8-20 Calcium 9.3 mg/dL 8.6-10.3 Total Protein 7.3 g/dL 6.4-8.9 Albumin 4.3 g/dL 3.2-5.2 Globulin 3.0 g/dL 2-4 Albumin/Globulin Ratio 1.4 1-3 Total Bilirubin 0.70 mg/dL 0.2-1.0 Alkaline Phosphatase 47 U/L 34-104 Alt 33 U/L 7-52 Ast 31 U/L 13-39 Egfr Non- 58.3 >60 Egfr 75.0 >60 14 Laboratory test finding 07/02/2016 Lipase 39 U/L 11.0-82.0 Urinalysis Profile 07/02/2016 Urine Color Straw Urine Appearance Clear Urine Specific [place] 1.005 Low 1.010-1.030 Urine pH 6.0 5-9 Urine Urobilinogen Negative Negative Urine Ketones Negative Negative Urine Protein Negative Negative Urine Leukocytes Trace Negative Urine Blood 1+ Negative Urine Nitrite Negative Negative Urine Bilirubin Negative Negative Urine Glucose Negative Negative Urine White Blood Cell Absent Absent Urine Red Blood Cell Trace(0-2/hpf) Absent Urine Bacteria 1+ Absent Laboratory test 07/02/2016 Urine Culture And SEE RESULT BELOW 15 finding Sensitivities Laboratory test 06/15/2016 Rapid Strep Molecular Negative Negative 16 finding Laboratory test 03/17/2015 TSH (Thyroid Stim 4.02 ?IU/mL 0.34-5.60 finding Horm) PSA Screening 1.624 ng/mL 0-4.000 17 Testosterone Free & Total 09/11/2014 Free Testosterone ng/dl 8.3 ng/dL 9-30 18 Testosterone 267 ng/dL 240-950 19 Laboratory test finding 09/11/2014 TSH (Thyroid Stim 0.18 ?IU/mL Low 0.34- 5.60 Horm) CBC Auto Diff 06/15/2014 White Blood Count 7.8 10^3/uL 4.8-10.8 Red Blood Count 5.23 10^6/uL 4.0-5.4 Hemoglobin 15.4 g/dL 14.0-18.0 Hematocrit 46 % 42-52 Mean Corpuscular Volume 87 fL 80-94 Mean Corpuscular Hemoglobin 30 pg 27-31 Mean Corpuscular HGB Conc 34 g/dL 31-36 Red Cell Distribution Width 13 % 10.5-15 Platelet Count 298 10^3/uL 150-450 Mean Platelet Volume 8 um3 7.4-10.4 Abs Neutrophils 4.8 10^3/uL 1.5-7.7 Abs Lymphocytes 1.6 10^3/uL 1.0-4.8 Abs Monocytes 0.9 10^3/uL High 0-0.8 Abs Eosinophils 0.4 10^3/uL 0-0.6 Abs Basophils 0.1 10^3/uL 0-0.2 Abs Nucleated RBC 0 10^3/uL Granulocyte % 61.6 % 38-83 Lymphocyte % 20.4 % Low 25-47 Monocyte % 11.6 % High 1-9 Eosinophil % 5.7 % 0-6 Basophil % 0.7 % 0-2 Nucleated Red Blood Cells % 0 Comp Metabolic Panel 06/15/2014 Sodium 133 mmol/L 133-145 Potassium 3.9 mmol/L 3.5-5.0 Chloride 104 mmol/L 101-111 Co2 Carbon Dioxide 25 mmol/L 22-32 Anion Gap 4 mmol/L 2-11 Glucose 100 mg/dL 70-100 Blood Urea Nitrogen 19 mg/dL 6-24 Creatinine 1.21 mg/dL High 0.67-1.17 BUN/Creatinine Ratio 15.7 8-20 Calcium 8.6 mg/dL 8.6-10.3 Total Protein 6.4 g/dL 6.4-8.9 Albumin 3.8 g/dL 3.2-5.2 Globulin 2.6 g/dL 2-4 Albumin/Globulin Ratio 1.5 1-3 Total Bilirubin 0.70 mg/dL 0.2-1.0 Alkaline Phosphatase 49 U/L 34-104 Alt 28 U/L 7-52 Ast 24 U/L 13-39 Egfr Non- 62.7 >60 Egfr 80.7 >60 20 Testosterone Free & 06/09/2014 Free Testosterone ng/dl 24 ng/dL 9- 21, 22 Total Testosterone 957 ng/dL 240-950 21, 23 Laboratory test 06/09/2014 TSH (Thyroid 0.15 IU/mL Low 0.34-5.60 21, 24 finding Stimulating Horm) Basic Metabolic Panel 06/09/2014 Sodium 136 mmol/L 133-145 21 Potassium 4.6 mmol/L 3.5-5.0 21 Chloride 105 mmol/L 101-111 21 Co2 Carbon Dioxide 27 mmol/L 22-32 21 Anion Gap 4 mmol/L 2-11 21 Glucose 88 mg/dL 70-100 21 Blood Urea Nitrogen 23 mg/dL 6-24 21 Creatinine 1.15 mg/dL 0.67-1.17 21 BUN/Creatinine Ratio 20.0 8-20 21 Calcium 8.8 mg/dL 8.6-10.3 21 Egfr Non- 66.5 >60 21 Egfr 85.6 >60 21, 25 Hemoglobin/Hematacrit 03/20/2014 Hemoglobin 15.6 g/dL 14.0-18.0 26 Hematocrit 46 % 42-52 26 Lipid Profile (Trig/Chol/HDL) 03/20/2014 Triglycerides 64 mg/dL 26, 27 Cholesterol 163 mg/dL 26, 28 HDL Cholesterol 40.8 mg/dL 26, 29 LDL Cholesterol 109 mg/dL 26, 30 Laboratory test finding 03/20/2014 Alt 38 U/L - 26, 31 TSH (Thyroid Stimulating Horm) 5.36 IU/mL 0.34-5.60 26, 32 Testosterone Free & 03/20/2014 Free Testosterone ng/dl 5.2 ng/dL - 26, 33 Total Testosterone 167 ng/dL 240-950 26, 34 Basic Metabolic Panel 03/20/2014 Sodium 138 mmol/L 133-145 26 Potassium 4.4 mmol/L 3.5-5.0 26 Chloride 104 mmol/L 101-111 26 Co2 Carbon Dioxide 28 mmol/L 22-32 26 Anion Gap 6 mmol/L 2-11 26 Glucose 94 mg/dL 70-100 26 Blood Urea Nitrogen 20 mg/dL 6-24 26 Creatinine 1.36 mg/dL High 0.67-1.17 26 BUN/Creatinine Ratio 14.7 8-20 26 Calcium 9.2 mg/dL 8.6-10.3 26 Egfr Non- 54.8 >60 26 Egfr 70.5 >60 26, 35 CBC Auto Diff 03/11/2014 White Blood Count 14.1 10^3/uL High 4.8-10.8 Red Blood Count 5.13 10^6/uL 4.0-5.4 Hemoglobin 15.2 g/dL 14.0-18.0 Hematocrit 46 % 42-52 Mean Corpuscular Volume 89 fL 80-94 Mean Corpuscular Hemoglobin 30 pg 27-31 Mean Corpuscular HGB Conc 33 g/dL 31-36 Red Cell Distribution Width 14 % 10.5-15 Platelet Count 303 10^3/uL 150-450 Mean Platelet Volume 7 um3 Low 7.4-10.4 Abs Neutrophils 11.0 10^3/uL High 1.5-7.7 Abs Lymphocytes 1.4 10^3/uL 1.0-4.8 Abs Monocytes 1.4 10^3/uL High 0-0.8 Abs Eosinophils 0.2 10^3/uL 0-0.6 Abs Basophils 0.1 10^3/uL 0-0.2 Abs Nucleated RBC 0.01 10^3/uL Granulocyte % 78.0 % 38-83 Lymphocyte % 9.8 % Low 25-47 Monocyte % 10.2 % High 1-9 Eosinophil % 1.4 % 0-6 Basophil % 0.6 % 0-2 Nucleated Red Blood Cells % 0.1 Inr/Protime 03/11/2014 Inr 0.95 0.85-1.06 Comp Metabolic Panel 03/11/2014 Sodium 137 mmol/L 133-145 Potassium 4.0 mmol/L 3.5-5.0 Chloride 101 mmol/L 101-111 Co2 Carbon Dioxide 30 mmol/L 22-32 Anion Gap 6 mmol/L 2-11 Glucose 100 mg/dL 70-100 Blood Urea Nitrogen 20 mg/dL 6-24 Creatinine 1.24 mg/dL High 0.67-1.17 BUN/Creatinine Ratio 16.1 8-20 Calcium 9.2 mg/dL 8.6-10.3 Total Protein 7.1 g/dL 6.4-8.9 Albumin 4.0 g/dL 3.2-5.2 Globulin 3.1 g/dL 2-4 Albumin/Globulin Ratio 1.3 1-3 Total Bilirubin 0.60 mg/dL 0.2-1.0 Alkaline Phosphatase 51 U/L 34-104 Alt 24 U/L 7-52 Ast 21 U/L 13-39 Egfr Non- 61.0 >60 Egfr 78.4 >60 36 Laboratory test finding 03/11/2014 Lipase 24 U/L 11.0-82.0 C Reactive Protein 52.52 mg/L High < 5.00 37 Urinalysis Profile 03/11/2014 Urine Color Yellow Urine Appearance Clear Urine Specific [place] 1.015 1.010-1.030 Urine pH 6.0 5-9 Urine Urobilinogen Negative Negative Urine Ketones Negative Negative Urine Protein Negative Negative Urine Leukocytes Negative Negative Urine Blood 2+ Negative Urine Nitrite Negative Negative Urine Bilirubin Negative Negative Urine Glucose Negative Negative Urine White Blood Cell Trace(0-5/hpf) Absent Urine Red Blood Cell 2+(6-10/hpf) Absent Urine Bacteria Absent Absent Throat-Beta Strept 09/07/2013 Throat Beta Strep NEGATIVE 38 Culture Surgical Pathology 07/18/2013 S RUN DATE: <SEE NOTE> Throat-Beta Strept 06/21/2013 Throat Beta Strep NEGATIVE 40 Culture Laboratory test finding 06/04/2013 Surgical Pathology RUN DATE: <SEE NOTE> Laboratory test finding 05/07/2013 Surgical Pathology RUN DATE: <SEE NOTE> Urine Micro Inhouse 04/17/2013 Ua WBC 0-1 Ua RBC 2-3 Ua Casts - Ua Epi - Ua Other - Ua Glucose - Ua Bilirubin - Ua Ketones - Ua Specific [place] 1.010 Ua Blood NH Tr Ua PH 6.5 Ua Protein - Ua Urobilinogen - Ua Nitrite - Ua Leukocytes - Hemoglobin/Hematacrit 03/05/2013 Hemoglobin 16.2 g/dL 14.0-18.0 Hematocrit 46 % 42-52 Lipid Profile (Trig/Chol/HDL) 03/05/2013 Triglycerides 86 mg/dL 40-200 Cholesterol 213 mg/dL High Less than 200 HDL Cholesterol 41 mg/dL 40-60 43 Cholesterol/HDL Ratio 5.2 Average High 1-4.44 LDL Cholesterol 154.8 High Less Than 100 44 Laboratory test finding 03/05/2013 Alt 30 U/L 14-54 TSH (Thyroid Stimulating Horm) 1.06 miu/mL 0.34-5.60 Testosterone Free & Total 03/05/2013 Free Testosterone ng/dl 7.6 ng/dL 9-30 45 Testosterone 230 ng/dL 240-950 46 Laboratory test finding 07/31/2012 TSH (Thyroid Stimulating 1.79 miu/mL 0.34-5.60 Horm) Hemoglobin/Hematacrit 07/31/2012 Hemoglobin 15.2 g/dL 14.0-18.0 Hematocrit 45 % 42-52 Lipid Profile (Trig/Chol/HDL) 03/22/2012 Triglycerides 84 mg/dL 40-200 Cholesterol 215 mg/dL High Less than 200 HDL Cholesterol 42 mg/dL 40-60 47 Cholesterol/HDL Ratio 5.1 Average High 1-4.44 LDL Cholesterol 156.2 mg/dL High Less Than 100 48 Laboratory test finding 03/22/2012 Alt 24 U/L 14-54 49 Testosterone Free & Total 03/22/2012 Free Testosterone ng/dl 9.5 ng/dL 9-30 Testosterone 297 ng/dL 240-950 50 Laboratory test 03/22/2012 TSH (Thyroid 10.97 miu/mL High 0.34-5.60 51 finding Stimulating Horm) Laboratory test 02/29/2012 PSA Diagnostic 0.89 ng/mL 0-4.0 52 finding Throat-Beta Strept 02/12/2012 Throat Beta Strep (SEE NOTE) 53 Culture Order 01/18/2011 rapid strep screen, neg inhouse Laboratory test 01/18/2011 Culture Throat Rapid neg finding Screen Culture Throat neg Laboratory test finding 10/14/2010 TSH 3.26 MIU/ML 0.34-5.60 PSA,Diagnostic 0.48 NG/ML 0-4 54 Alt (SGPT) 25 U/L 17-63 Lipid Profile (Trig/Chol/HDL) 10/14/2010 Triglyceride 78 mg/dL 40-200 Cholesterol 219 mg/dL High Less Than 200 55 High Density Lipoprotein 42 mg/dL 40-60 56 Cholesterol/HDL Ratio 5.21 AVERAGE High 1-4.97 Low Density Lipoprotein 161 mg/dL High Less Than 100 57 Hemoglobin And Hematocrit 10/14/2010 Hemoglobin 16.2 g/dL 14.0-18.0 Hematocrit 46 % 42-52 Laboratory test 09/28/2010 PSA,Diagnostic 0.64 NG/ML 0-4 finding Surgical Pathology 07/08/2010 Surgical Pathology 58 <SEE NOTE> Laboratory test 07/08/2010 Clotest NEGATIVE finding Laboratory test 04/03/2010 TSH 1.93 MIU/ML 0.34-5.60 finding PSA,Diagnostic 0.55 NG/ML 0-4 59 Alt (SGPT) 25 U/L 17-63 Lipid Profile (Trig/Chol/HDL) 04/03/2010 Triglyceride 118 mg/dL 40-200 Cholesterol 188 mg/dL Less Than 200 60 High Density Lipoprotein 34 mg/dL Low 40-60 61 Cholesterol/HDL Ratio 5.53 AVERAGE High 1-4.97 Low Density Lipoprotein 130 mg/dL High Less Than 100 62 Hemoglobin And Hematocrit 04/03/2010 Hemoglobin 15.9 g/dL 14.0-18.0 Hematocrit 47 % 42-52 Laboratory test finding 10/20/2009 TSH 2.88 MIU/ML 0.34-5.60 PSA Screening 0.59 NG/ML 0-4 63 Alt (SGPT) 23 U/L 17-63 Hemoglobin And Hematocrit 10/20/2009 Hemoglobin 15.6 g/dL 14.0-18.0 Hematocrit 46 % 42-52 Lipid Profile (Trig/Chol/HDL) 10/20/2009 Triglyceride 119 mg/dL 40-200 Cholesterol 205 mg/dL High Less Than 200 64 High Density Lipoprotein 34 mg/dL Low 40-60 65 Cholesterol/HDL Ratio 6.03 AVERAGE High 1-4.97 Low Density Lipoprotein 147 mg/dL High Less Than 100 66 Laboratory test finding 04/14/2009 Testosterone Total 766.3 ng/dL 175- 781 TSH 1.96 MIU/ML 0.34-5.60 CBC With Electronic Diff 04/14/2009 White Blood Count 8.3 CUMM 4.8-10.8 Red Cell Count 5.00 CUMM 4.6-6.2 Hemoglobin 15.4 g/dL 14.0-18.0 Hematocrit 44 % 42-52 Mean Corpuscular Volume 89 um3 80-94 Mean Corpuscular Hemoglob 31 pg 27-31 Mean Corpuscular HGB Cone 35 g/dL 32-36 Redcell Distribution WDTH 13 % 10.5-15 Platelet Count 394 CUMM 150-450 Mean Platelet Volume 7.0 um3 Low 7.4-10.4 Gran % 61.3 % 38-83 Lymph % 24.0 % Low 25-47 Mononuclear % 8.7 % 1-9 Eosinophil % 5.5 % 0-6 Basophil % 0.5 % 0-2 Abs Lymphs 2.0 1.0-4.8 Abs Mononuclear 0.7 0-0.8 Absolute Neutrophil Count 5.1 1.5-7.7 Abs Eosinophils 0.5 0-0.6 Abs Basophils 0 0-0.2 CBC With Electronic Diff 01/09/2009 White Blood Count 7.6 CUMM 4.8-10.8 Red Cell Count 5.00 CUMM 4.6-6.2 Hemoglobin 15.1 g/dL 14.0-18.0 Hematocrit 45 % 42-52 Mean Corpuscular Volume 90 um3 80-94 Mean Corpuscular Hemoglob 30 pg 27-31 Mean Corpuscular HGB Cone 34 g/dL 32-36 Redcell Distribution WDTH 14 % 10.5-15 Platelet Count 357 CUMM 150-450 Mean Platelet Volume 7.2 um3 Low 7.4-10.4 Gran % 66.8 % 38-83 Lymph % 20.4 % Low 25-47 Mononuclear % 8.9 % 1-9 Eosinophil % 3.2 % 0-6 Basophil % 0.7 % 0-2 Abs Lymphs 1.5 1.0-4.8 Abs Mononuclear 0.7 0-0.8 Absolute Neutrophil Count 5.0 1.5-7.7 Abs Eosinophils 0.2 0-0.6 Abs Basophils 0.1 0-0.2 Laboratory test finding 01/09/2009 Testosterone Total 652.8 ng/dL 175- 781 PSA Screening 0.65 NG/ML 0-4 TSH 5.21 MIU/ML 0.34-5.60 Testosterone Free & Total 08/28/2008 Free Testosterone 18.6 ng/dL 9- 67 Total Testosterone 503 ng/dL 240-950 68 Laboratory test finding 08/13/2008 PSA Screening 0.50 NG/ML 0-4 69 Testosterone Free & Total 07/09/2008 Free Testosterone 11.6 ng/dL 9- 30 70 Total Testosterone 350 ng/dL 240-950 71 Throat-Beta Strep 01/15/2008 Throat-Beta Strep NF 72 Culture Laboratory test 08/03/2007 Throat-Beta Strep NGNBS 73 finding Culture Rapid Strep A 08/03/2007 Rapid Strep A The drapery estimator 74 <SEE NOTE> Laboratory test 05/25/2007 Glucose 89 mg/dL 70-105 75 finding Lead 05/25/2007 Lead 6.8 g/dL 0-25.0 75, 76 Lead Specimen Type VENOUS 75 Lipid Profile 05/25/2007 Cholesterol/HDL Ratio 5.14 AVERAGE High 1-4.97 75 (Trig/Chol/HDL) Cholesterol 190 mg/dL Less Than 200 75, 77 Triglyceride 91 mg/dL 40-200 75 High Density Lipoprotein 37 mg/dL Low 40-60 75, 78 Low Density Lipoprotein 135 mg/dL High Less Than 100 75, 79 Laboratory test finding 05/25/2007 TSH 9.63 MIU/ML High 0.34-5.60 75 PSA Screening 0.50 NG/ML 0-4 75, 80 Ua Inhouse 05/16/2007 Ua Glucose - Ua Bilirubin - Ua Ketones - Ua Specific [place] 1.010 Ua Blood nh tr Ua PH 6.0 Ua Protein - Ua Urobilinogen - Ua Nitrite - Ua Leukocytes - Laboratory test finding 04/10/2006 TSH 1.27 MIU/ML 0.34-5.60 Laboratory test finding 10/14/2005 TSH 6.21 MIU/ML High 0.34-5.60 75 T3 Free 3.05 pg/mL 2.39-6.79 75 Free Thyroxine 0.64 ng/dL 0.58-1.64 75 Thyroid Autoantibodies 10/14/2005 Thyroglobulin Autoantibodies 15 U/ML & lt; 60 75 Thyroid Peroxidase Autoab 40 U/ML < 60 75, 81 Lipid Profile 10/14/2005 Cholesterol/HDL Ratio 4.59 AVERAGE 1-4.97 75 (Trig/Chol/HDL) Cholesterol 179 mg/dL Less Than 200 75, 82 Triglyceride 75 mg/dL 40-200 75 High Density Lipoprotein 39 mg/dL Low 40-60 75, 83 Low Density Lipoprotein 125 mg/dL High Less Than 100 75, 84 CBC With Manual Diff 06/16/2005 RBC Morphology NORMAL White Blood Count 6.5 CUMM 4.8-10.8 Hematocrit 39 % Low 42-52 Hemoglobin 13.2 g/dL Low 14.0-18.0 Mean Corpuscular HGB Cone 34 g/dL 32-36 Mean Corpuscular Hemoglob 30 pg 27-31 Mean Corpuscular Volume 87 um3 80-94 Mean Platelet Volume 8.3 um3 7.4-10.4 Platelet Count 362 CUMM 150-450 Polysegmented Neutrophil 60 % 38-83 Red Cell Count 4.46 CUMM Low 4.6-6.2 Redcell Distribution WDTH 12 % 10.5-15 Absolute Neutrophil Count 3.9 Eosenophil 4 % 0-6 Lymphocyte 23 % 5-47 Monocyte 13 % 0-13 Laboratory test finding 06/16/2005 Ferritin 85 NG/ML 24-336 Folic Acid > 20.0 NG/ML High 2.2-18.3 Vitamin B12 522 pg/mL 180-914 TSH 0.05 MIU/ML Low 0.34-5.60 Iron & Iron Binding Capacity 06/16/2005 Iron Total 47 g/dL 45-182 Unsaturated Iron Binding 201 g/dL Total Iron Binding Capacity 248 g/dL Low 250-450 % Iron Saturation 19 % 15-55 Retic Count 06/16/2005 Corrected Retic 1.1 % 0.5-1.5 Hematocrit For Retic Coun 39 % Low 42-52 RBC Retic Count 4.46 CUMM Low 4.6-6.2 Reticulocyte Count 1.28 % 0.5-1.5 Immature Retic Fraction 0.35 Mean Retic Volume 97.4 Retic Index 0.7 Laboratory test finding 05/17/2005 PSA Screening 0.4 NG/ML 0-4 85 Lipid Profile (Trig/Chol/HDL) 05/17/2005 Cholesterol 138 mg/dL Less Than 200 86 Triglyceride 98 mg/dL 40-200 High Density Lipoprotein 33 mg/dL Low 40-60 87 Low Density Lipoprotein 85 mg/dL Less Than 100 88 Cholesterol/HDL Ratio 4.18 AVERAGE 1-4.97 Comp Metabolic Panel 05/17/2005 One Over Creatinine 0.90 Anion Gap 7.0 mmol/L 2-11 89 Albumin/Globulin Ratio 1.5 1-3 Albumin 3.8 GM/DL 3.6-5.4 Alkaline Phosphatase 59 U/L 39-117 Alt (SGPT) 29 U/L 17-63 Ast (Sgot) 26 U/L 12-42 BUN 14 mg/dL 6-24 Calcium 9.3 mg/dL 8.7-10.2 Chloride 102 mmol/L 101-111 Co2 (Carbon Dioxide) 29.0 mmol/L 22-32 Globulin 2.6 GM/DL 2-4 Glucose 88 mg/dL 70-105 Potassium 4.6 mmol/L 3.5-5.0 Sodium 138 mmol/L 135-145 Bilirubin Total 0.6 mg/dL 0.4-1.5 Total Protein 6.4 GM/DL 6.2-8.1 BUN/Creatinine Ratio 12.7 8-20 Creatinine 1.1 mg/dL 0.5-1.4 Laboratory test finding 05/17/2005 TSH 2.68 MIU/ML 0.34-5.60 CBC With Manual Diff 05/17/2005 RBC Morphology NORMAL White Blood Count 7.1 CUMM 4.8-10.8 Hematocrit 41 % Low 42-52 Hemoglobin 14.5 g/dL 14.0-18.0 Mean Corpuscular HGB Cone 35 g/dL 32-36 Mean Corpuscular Hemoglob 31 pg 27-31 Mean Corpuscular Volume 87 um3 80-94 Mean Platelet Volume 7.6 um3 7.4-10.4 Platelet Count 391 CUMM 150-450 Polysegmented Neutrophil 61 % 38-83 Red Cell Count 4.75 CUMM 4.6-6.2 Redcell Distribution WDTH 13 % 10.5-15 Absolute Neutrophil Count 4.4 Atypical Lymph 1 % 0-6 Band Neutrophil 1 % 0-8 Eosenophil 5 % 0-6 Lymphocyte 24 % 5-47 Monocyte 8 % 0-13 Lipid Panel 03/01/2004 Cholesterol Total 197 Cholesterol/HDL Ratio 4.69 High Density Lipoprotein 42 LDL Low Density Lipoprotein LDL calculated 142 Triglycerides 66 CMP Panel 03/01/2004 Albumin 4.0 Alt - SGPT 33 Calcium 9.3 Carbon Dioxide 30.0 Chloride 102 Creatinine 1.0 Glucose Serum 88 Alkaline Phosphatase 64 Potassium 4.3 Protien Total 6.7 Sodium 137 Ast - Sgot 29 BUN - Urea Nitrogen 12 Laboratory test finding 03/01/2004 PSA Total 0.5 1 Acute inflammation: >10.00 2 [place] Severe Sepsis and Septic Shock Management Bundle Measure requires all lactic acids initially measuring >2.0 mmol/L be repeated. 3 Because ethnic data is not always readily available, this report includes an eGFR for both -Americans and non- Americans. The National Kidney Disease Education Program (NKDEP) does not endorse the use of the MDRD equation for patients that are not between the ages of 18 and 70, are , have extremes of body size, muscle mass, or nutritional status, or are non- or non-. According to the National Kidney Foundation, irrespective of diagnosis, the stage of the disease is based on the level of kidney function: Stage Description GFR(mL/min/1.73 m(2)) 1 Kidney damage with normal or decreased GFR 90 2 Kidney damage with mild decrease in GFR 60-89 3 Moderate decrease in GFR 30-59 4 Severe decrease in GFR 15-29 5 Kidney failure <15 (or dialysis) 4 Serum levels of PSA measured using the [employer] DXI Hybritech immunoassay should not be interpreted as absolute evidence of the presence or absence of disease. The PSA value should be used in conjunction with other pertinent clinical diagnostic procedures. The values obtained with different assay methods or kits cannot be used interchangeably. 5 SEE RESULT BELOW Name: ADELE PENDLETON : [address]: Dain Jesus MD Acct: [id number] Unit: [id number] AGE: 55 Location: ENDO Re12/05/16 SEX: M Status: DEP REF SPEC: [id number] PARISH: 12/05/[address]: Dain Jesus MD REQ: [id number] RECD: 12/05/164666 STATUS: SRINIVAS PHILLIPS DR: Vu Bell MD _ ORDERED: LEVEL 4/2 FINAL DIAGNOSIS 1. Esophagus, random, biopsy: -- Benign squamous mucosa with moderate erosive changes; see comment. -- No evidence of eosinophilic esophagitis. 2. Colon, sigmoid, biopsy: -- Benign colonic mucosa with surface red blood cell extravasation and no other significant pathologic abnormalities. COMMENT: In specimen 1 fever eosinophils are seen than would be expected in eosinophilic esophagitis (approximately 3 per high-power field). Additionally, basal layer expansion, a moderate lymphocytic infiltrate, and focal red blood cell extravasation are seen, indicators of chronic irritation. CLINICAL HISTORY No history given POST-OPERATIVE DIAGNOSIS Esophagus - multiple rings, biopsied for eosinophilic esophagitis, Grade A erosive esophagitis; stomach and duodenum - normal. Colonoscopy to terminal ileum - tics, colitis, ? SCAD, biopsied. Conclusions/Plan: 10 years GROSS DESCRIPTION 1. The specimen is received in formalin labeled, Biopsies Random Esophagus , and consists of a 0.7 x 0.5 x 0.1 cm aggregate of hudson-white irregular soft tissue fragments which is submitted entirely in one cassette. 2. The specimen is received in formalin labeled, Biopsies Sigmoid Colitis, and consists of a 0.2 x 0.2 cm hudson-pink irregular soft tissue fragment. No other tissue is identified CONTINUED ON NEXT PAGE * ML=Testing performed at Main Lab DEPARTMENT OF PATHOLOGY, [address] [place] [address] Shyam Villa M.D. Director [facility] # [id number] RUN DATE: 12/06/16 [facility] LIVE PAGE 2 Patient: ADELE PENDLETON [id number] (Continued) GROSS DESCRIPTION (Continued) GROSS DESCRIPTION (Continued) within the container. Entirely submitted, one cassette. Signed (signature on file) Khushbu Hastings MD [id number] END OF REPORT * ML=Testing performed at Main Lab DEPARTMENT OF PATHOLOGY, [address] [place] [address] Shyam Villa M.D. Director [facility] # [id number] 6 this should be done right before you are due for a dose oftestosterone 7 Because ethnic data is not always readily available, this report includes an eGFR for both -Americans and non- Americans. The National Kidney Disease Education Program (NKDEP) does not endorse the use of the MDRD equation for patients that are not between the ages of 18 and 70, are , have extremes of body size, muscle mass, or nutritional status, or are non- or non-. According to the National Kidney Foundation, irrespective of diagnosis, the stage of the disease is based on the level of kidney function: Stage Description GFR(mL/min/1.73 m(2)) 1 Kidney damage with normal or decreased GFR 90 2 Kidney damage with mild decrease in GFR 60-89 3 Moderate decrease in GFR 30-59 4 Severe decrease in GFR 15-29 5 Kidney failure <15 (or dialysis) 8 this should be done right before you are due for a dose oftestosterone 9 Serum levels of PSA measured using the [employer] [place] DXI Hybritech immunoassay should not be interpreted as absolute evidence of the presence or absence of disease. The PSA value should be used in conjunction with other pertinent clinical diagnostic procedures. The values obtained with different assay methods or kits cannot be used interchangeably. 10 ADDITIONAL INFORMATION Testing performed by [facility]. This test was developed and its performance characteristics determined by [facility] in a manner consistent with CLIA requirements. This test has not been cleared or approved by the U.S. Food and Drug Administration. 11 ADDITIONAL INFORMATION Testing performed by Liquid Chromatography-Tandem Mass Spectrometry (LC-MS/MS). This test was developed and its performance characteristics determined by [facility] in a manner consistent with CLIA requirements. This test has not been cleared or approved by the U.S. Food and Drug Administration. Test Performed by: [place] [address] 12 Serum levels of PSA measured using the [employer] [place] DXI Hybritech immunoassay should not be interpreted as absolute evidence of the presence or absence of disease. The PSA value should be used in conjunction with other pertinent clinical diagnostic procedures. The values obtained with different assay methods or kits cannot be used interchangeably. 13 [facility] Severe Sepsis and Septic Shock Management Bundle Measure requires all lactic acids initially measuring >2.0 mmol/L be repeated. 14 Because ethnic data is not always readily available, this report includes an eGFR for both -Americans and non- Americans. The National Kidney Disease Education Program (NKDEP) does not endorse the use of the MDRD equation for patients that are not between the ages of 18 and 70, are , have extremes of body size, muscle mass, or nutritional status, or are non- or non-. According to the National Kidney Foundation, irrespective of diagnosis, the stage of the disease is based on the level of kidney function: Stage Description GFR(mL/min/1.73 m(2)) 1 Kidney damage with normal or decreased GFR 90 2 Kidney damage with mild decrease in GFR 60-89 3 Moderate decrease in GFR 30-59 4 Severe decrease in GFR 15-29 5 Kidney failure <15 (or dialysis) 15 SEE RESULT BELOW Name: ADELE PENDLETON : [address]: Hugo Heath MD Acct: [id number] Unit: [id number] AGE: 55 Location: ED Re07/02/16 SEX: M Status: DEP ER SPEC: [id number] PARISH: 07/02/[address] [facility] [address]: Hugo Heath MD REQ: [id number] RECD: 07/02/16 STATUS: GIORGI PHILLIPS DR: Vu Bell MD _ SOURCE: URINE SPDESC: ORDERED: Urine Culture Procedure Result Reported Site Urine Culture Final 07/03/16- 1603 ML No Growth (<1,000 CFU/mL) * ML - [facility] ([facility]) . END OF REPORT * ML=Testing performed at [facility] DEPARTMENT OF PATHOLOGY, [address] [place] [address] Shyam Villa M.D. Director [facility] # [id number] 16 [employer] Pro[employer] Writer: [id number] Serum levels of PSA measured using the [employer] [place] DXI Hybritech immunoassay should not be interpreted as absolute evidence of the presence or absence of disease. The PSA value should be used in conjunction with other pertinent clinical diagnostic procedures. The values obtained with different assay methods or kits cannot be used interchangeably. 18 ADDITIONAL INFORMATION Testing performed by [facility]. 19 ADDITIONAL INFORMATION Testing performed by Liquid Chromatography-Tandem Mass Spectrometry (LC-MS/MS). Test Performed by: [address] [address] Director Of Procurement: Maverick Mcclellan II, M.D., Ph.D. 20 Because ethnic data is not always readily available, this report includes an eGFR for both -Americans and non- Americans. The National Kidney Disease Education Program (NKDEP) does not endorse the use of the MDRD equation for patients that are not between the ages of 18 and 70, are , have extremes of body size, muscle mass, or nutritional status, or are non- or non-. 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 23 ADDITIONAL INFORMATION Testing performed by Liquid Chromatography-Tandem Mass Spectrometry (LC-MS/MS). Test Performed by: [place] [address] Director Of Procurement: Maverick Mcclellan II, M.D., Ph.D. 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 The National Kidney Disease Education Program (NKDEP) does not endorse the use of the MDRD equation for patients that are not between the ages of 18 and 70, are , have extremes of body size, muscle mass, or nutritional status, or are non- or non-. According to the National Kidney Foundation, irrespective of diagnosis, the stage of the disease is based on the level of kidney function: Stage Description GFR(mL/min/1.73 m(2)) 1 Kidney damage with normal or decreased GFR 90 2 Kidney damage with mild decrease in GFR 60-89 3 Moderate decrease in GFR 30-59 4 Severe decrease in GFR 15-29 5 Kidney failure <15 (or dialysis) 26 PT IS FASTING 27 Desirable <150 Borderline high 150-199 High 200-499 Very High >500 28 Desirable <200 Borderline high 200-239 High >239 29 Low <40 Desirable: 40-60 High: >60 30 Desirable <100 Near Optimal 100-129 Borderline high 130-159 High 160-189 Very High >189 31 PT IS FASTING 32 PT IS FASTING 33 ADDITIONAL INFORMATION Testing performed by [facility]. 34 ADDITIONAL INFORMATION Testing performed by Liquid Chromatography-Tandem Mass Spectrometry (LC-MS/MS). Test Performed by: [place] [address] Director Of Procurement: González Parrish M.D. 35 Because ethnic data is not always readily available, this report includes an eGFR for both -Americans and non- Americans. The National Kidney Disease Education Program (NKDEP) does not endorse the use of the MDRD equation for patients that are not between the ages of 18 and 70, are , have extremes of body size, muscle mass, or nutritional status, or are non- or non-. According to the National Kidney Foundation, irrespective of diagnosis, the stage of the disease is based on the level of kidney function: Stage Description GFR(mL/min/1.73 m(2)) 1 Kidney damage with normal or decreased GFR 90 2 Kidney damage with mild decrease in GFR 60-89 3 Moderate decrease in GFR 30-59 4 Severe decrease in GFR 15-29 5 Kidney failure <15 (or dialysis) 36 Because ethnic data is not always readily available, this report includes an eGFR for both -Americans and non- Americans. The National Kidney Disease Education Program (NKDEP) does not endorse the use of the MDRD equation for patients that are not between the ages of 18 and 70, are , have extremes of body size, muscle mass, or nutritional status, or are non- or non-. According to the National Kidney Foundation, irrespective of diagnosis, the stage of the disease is based on the level of kidney function: Stage Description GFR(mL/min/1.73 m(2)) 1 Kidney damage with normal or decreased GFR 90 2 Kidney damage with mild decrease in GFR 60-89 3 Moderate decrease in GFR 30-59 4 Severe decrease in GFR 15-29 5 Kidney failure <15 (or dialysis) 37 Acute inflammation: >10.00 38 RUN DATE: 09/10/13 [facility] LIVE PAGE 1 RUN TIME: [address] [place] [address] Specimen Inquiry Name: ADELE PENDLETON : [address]: Bobby Kendrick MD Acct: [id number] Unit: [id number] AGE: 52 Location: [facility] Re09/07/13 SEX: M Status: DEP ER SPEC: [id number] PARISH: 09/07/13-[address] [facility] [address]: Bobby Kendrick MD REQ: [id number] RECD: 09/08/13-130 STATUS: GIORGI PHILLIPS DR: [facility] Vu Bell MD _ SOURCE: THROAT SPDESC: ORDERED: Throat Beta Str Procedure Result Verified Site Throat Beta Strep Culture Final 09/10/13- 924 ML Negative For Group A Beta Streptococcus END OF REPORT * ML=Testing performed at Main Lab DEPARTMENT OF PATHOLOGY, [facility] [employer] [place], [place] [address] Shyam Villa M.D. Director IVELISSE # [id number] RUN DATE: 07/23/13 [facility] LIVE PAGE 1 RUN TIME: 8465 [facility] [employer] [place], [place] [address] Specimen Inquiry Name: ADELE PENDLETON : [address]: Marcel Vaughn MD Acct: [id number] Unit: [id number] AGE: 52 Location: [facility] Re07/18/13 SEX: M Status: REG [facility] SPEC: [id number] PARISH: 07/18/13- SUBM DR: Marcel Vaughn MD REQ: [id number] RECD: 07/19/130 STATUS: SRINIVAS PHILLIPS DR: Vu Bell MD _ ORDERED: MELAN-A STAIN/4, LEVEL IV FINAL DIAGNOSIS Skin, wide excision right posterior shoulder, excision: A. Skin with prior surgical site related changes. B. No residual melanocytic neoplasia identified. COMMENTS: Immunohistochemical stains for Melan-A were performed on blocks L, M, O, and P. The stains support the above rendered diagnosis. PRE-OPERATIVE DIAGNOSIS Melanoma 0.35 mm. right posterior shoulder, suture salcedo twelve o'clock superior apex margin. GROSS DESCRIPTION The specimen is received in formalin labeled Adele Pendleton, Wide Excision Melanoma Right Posterior Shoulder Suture Twelve O'clock Superior [place] Margin and consists of a 7.8 x 2.8 cm. hudson-white, hair-bearing skin ellipse excised to a maximum depth of 1.8 cm. There is a suture attached to one long axis which designates twelve o'clock superior apex margin. There is a central 2.8 x 0.3 cm. linear, hudson-pink scar. The specimen is inked as follows: nine o'clock half - black, three o'clock half - blue, and twelve o'clock tip - green, serially sectioned from twelve o'clock to six o'clock and entirely submitted in cassettes A through Q to include ellipse ends in cassette A. Signed (signature on file) Shyam Villa MD 1455 END OF REPORT * ML=Testing performed at Main Lab DEPARTMENT OF PATHOLOGY, [facility] [employer] [place] [address] Shyam Villa M.D. Director CLIA # [id number] RUN DATE: 06/24/13 [facility] LIVE PAGE 1 RUN TIME: 813 [facility] [employer] [place], [place] [address] Specimen Inquiry Name: ADELE PENDLETON : [address]: Isa Barahona MD Acct: [id number] Unit: [id number] AGE: 52 Location: [facility] Re06/21/13 SEX: M Status: DEP ER SPEC: [id number] PARISH: 04/ [facility] DR: Mariah GUPTA REQ: [id number] RECD: 06/22/13 STATUS: GIORGI PHILLIPS DR: Isa Barahona MD, MD _ SOURCE: THROAT SPDESC: ORDERED: Throat Beta Str Procedure Result Verified Site Throat Beta Strep Culture Final 06/24/13812 ML Negative For Group A Beta Streptococcus END OF REPORT * ML=Testing performed at Main Lab DEPARTMENT OF PATHOLOGY, [facility] [employer] [place], [place] [address] Shyam Villa M.D. Director [facility] Permit #[id number] RUN DATE: 06/07/13 [facility] LIVE PAGE 1 RUN TIME: 1612 [facility] [employer] [place], [place] [address] Specimen Inquiry Name: ADELE PENDLETON : [address]: Vu Bell MD Acct: [id number] Unit: [id number] AGE: 52 Location: [facility] Re06/04/13 SEX: M Status: REG REF SPEC: [id number] PARISH: 06/04/13-[address] [facility] [address]: Vu Bell MD REQ: [id number] RECD: 06/04/13 STATUS: SOUT _ ORDERED: MELAN-A STAIN, LEVEL IV FINAL DIAGNOSIS Skin, back/right shoulder, excision: A. Malignant melanoma, superficial spreading type with: 1. Breslow thickness: 0.35 mm. 2. Niall's Level III. 3. Ulceration: Not identified. 4. Mitotic rate: Less than 1 per square mm. 5. Margins: Malignant melanoma is present 1.24 mm. to the closest 12 o'clock half lateral margin and 1.86 mm. to the closest 6 o'clock half lateral margin. Malignant melanoma is present 1.27 mm. from the closest deep margin. 6. Angiolymphatic invasion: Not identified. 7. Regression: Present. 8. Tumor infiltrating lymphocytes: Present, brisk. 9. Satellite: N/A. B. TNM Histopathologic Stage: pT1a. COMMENT: An area of scarring is present in the center of the lesion, compatible with the previous biopsy site ([id number] #2). The prior biopsy was reviewed in conjunction with this specimen. A Melan-A stain, with appropriately reacting controls, was performed on sections cut from this lesion and shows a confluence of atypical melanocytes at the dermal-epidermal junction and significant pagetoid extension. Evidence of regression is present. The depth of any melanocytic lesion prior to regressive changes cannot be discerned. Regression is present to a depth of 0.73 mm. Re-excision of this lesion is recommended. The findings were discussed with Dr. Bell. CONTINUED ON NEXT PAGE * ML=Testing performed at Main Lab DEPARTMENT OF PATHOLOGY, [facility] [employer] [place], [place] [address] Shyam Villa M.D. Director [facility] Permit #[id number] RUN DATE: 06/07/13 [facility] LIVE PAGE 2 RUN TIME: 161 [facility] [employer] [place], [place] [address] Specimen Inquiry Patient: KENYATTA PENDLETONPATO Moran [id number] (Continued) SPECIMEN COMMENTS (Continued) CLINICAL HISTORY An irregularly shaped but well demarcated black lesion, approx. 5 mm. and at one edge there is a slightly larger salmony to erythematous macule. An elliptical excision was carried out approximately 2 cm. in longest diameter and was tagged at 9 o'clock with a single tie. PRE-OPERATIVE DIAGNOSIS Neoplasm uncertain skin GROSS DESCRIPTION The specimen is received in formalin labeled Adele Pendleton, Back/Right Shoulder and consists of a 2.7 x 1.2 cm. hudson-white, hair-bearing skin ellipse excised to a depth of 0.2 cm. There is an attached suture to one long axis which as per the accompanying requisition designates nine o'clock. There is an eccentric 0.4 x 0.2 cm. black macule. The specimen is inked as follows: six o'clock half - black, twelve o'clock half - blue, and nine o'clock tip - green, serially sectioned from nine o'clock to three o'clock and entirely submitted in cassettes A through C to include ellipse ends in cassette A. Signed (signature on file) Khushbu Hastings MD 1611 END OF REPORT * ML=Testing performed at Main Lab DEPARTMENT OF PATHOLOGY, [facility] [employer] [place] [address] Shyam Villa M.D. Director [facility] Permit #[id number] RUN DATE: 05/09/13 [facility] LIVE PAGE 1 RUN TIME: [address] [place] [address] Specimen Inquiry Name: ADELE PENDLETON Luisa : [address]: Vu Bell MD Acct: [id number] Unit: [id number] AGE: 52 Location: [facility] Re05/07/13 SEX: M Status: REG REF SPEC: [id number] PARISH: 05/07/[address] [facility] [address]: Vu Bell MD REQ: [id number] RECD: 05/07/13 STATUS: SOUT _ ORDERED: LEVEL IV/2 FINAL DIAGNOSIS 1. Skin, retroauricular, biopsy: A. Solar lentigo. 2. Skin, right scapula, biopsy: A. Junctional melanocytic nevus with mild architectural disorder and moderate cytologic atypia. B. Lesion extends to the unoriented margin of the specimen. COMMENTS: Surgical re-excision with adequate margins is recommended for Part 2. Dr. Hastings has reviewed this case and concurs. CLINICAL HISTORY Specimen 2. Patient does not recall trauma PRE-OPERATIVE DIAGNOSIS 1. 3-4mm dark brown pigmented macula, borders well demarcated, spots within w /out pigment 2. irregular shape, well demarcated black lesion, look, feels like decompressed blister CONTINUED ON NEXT PAGE * ML=Testing performed at Main Lab DEPARTMENT OF PATHOLOGY, [facility] [employer] [place], [place] [address] Shyam Villa M.D. Director [facility] Permit #[id number] RUN DATE: 05/09/13 [facility] LIVE PAGE 2 RUN TIME: 7271 [facility] [employer] [place], [place] [address] Specimen Inquiry Patient: ADELE PENDLETON [id number] (Continued) POST-OPERATIVE DIAGNOSIS (Continued) POST-OPERATIVE DIAGNOSIS 238.2 GROSS DESCRIPTION 1. The specimen is received in formalin labeled Adele Pendleton, Skin Retroauricular and consists of a 0.2 x 0.2 x 0.1 cm. brown-rascon, irregular portion of skin. Submitted entirely, one cassette. 2. The specimen is received in formalin labeled Adele Pendleton, Skin Right Scapula and consists of a 0.3 cm. mottled, brown-rascon, circular skin punch excised to a depth of 0.3 cm. Submitted entirely, one cassette. Signed (signature on file) Shyam Villa MD 1719 END OF REPORT * ML=Testing performed at Main Lab DEPARTMENT OF PATHOLOGY, [address] [place] [address] Shyam Villa M.D. Director [facility] Permit #[id number] HDL Interpretation: Undesirable: High Risk: Less than 40 mg/dL Desirable: Low Risk: Greater than 60 mg/dL 44 LDL Interpretation: Low Risk Optimal Level: LDL Less than 100 mg/dL Near or Above Optimal: LDL 100-129 mg/dL Borderline High Risk: LDL 130-159 mg/dL High Risk: LDL 160-189 mg/dL Very High Risk: LDL Greater than 189 mg/dL 45 Testing performed by [facility]. 46 Testing performed by Liquid Chromatography-Tandem Mass Spectrometry (LC-MS/MS). Test Performed by: [address] [address] Director Of Procurement: Steve Rodriguez III, M.D. 47 HDL Interpretation: Undesirable: High Risk: Less than 40 MG/DL Desirable: Low Risk: Greater than 60 MG/DL 48 LDL Interpretation: Low Risk Optimal Level: LDL Less than 100 MG/DL Near or Above Optimal: LDL 100-129 MG/DL Borderline High Risk: LDL 130-159 MG/DL High Risk: LDL 160-189 MG/DL Very High Risk: LDL Greater than 189 MG/DL 49 PT IS FASTING 50 Test Performed by: [address] [address] Director Of Procurement: Steve Rodriguez III, M.D. 51 PT IS FASTING 52 Serum levels of PSA measured using the [employer] [place] DXI Hybritech immunoassay should not be interpreted as absolute evidence of the presence or absence of disease. The PSA value should be used in conjunction with other pertinent clinical diagnostic procedures. The values obtained with different assay methods or kits cannot be used interchangeably. 53 RUN DATE: 02/14/12 [facility] LIVE PAGE 1 RUN TIME: [address] [place] [address] Specimen Inquiry Name: ADELE PENDLETON : [address]: Twan Schmidt MD Acct: [id number] Unit: [id number] AGE: 51 Location: [facility] Re02/12/12 SEX: M Status: DEP ER SPEC: [id number] PARISH: 02/12/[address]: Roxana CARRILLO,Twan REQ: [id number] RECD: 02/12/12 STATUS: GIORGI PHILLIPS DR: Ray CARRILLO,Vu Junie SOURCE: THROAT SPDESC: ORDERED: Throat Beta Str Procedure Result Verified Site Throat Beta Strep Culture Final 02/14/12805 ML Negative For Group A Beta Streptococcus END OF REPORT * ML=Testing performed at Main Lab DEPARTMENT OF PATHOLOGY, [address] [place] [address] Shyam Villa M.D. Director [facility] Permit #[id number] * SERUM LEVELS OF PSA MEASURED USING THE KENZIE [place] ACCESS HYBRITECH IMMUNOASSAY SHOULD NOT BE INTERPRETED ABSOLUTE EVIDENCE OF THE PRESENCE OR ABSENCE OF DISEASE. THE PSA VALUE SHOULD BE USED IN CONJUNCTION WITH OTHER PERTINENT CLINICAL DIAGNOSTIC PROCEDURES. A PSA value in the range of 0.1 to 0.6 ng/ml is indeterminate if being used as an indicator of recurrent or residual disease. . 55 CHOLESTEROL INTERPRETATION: Desirable: Less than 200 MG/DL Borderline-High Risk: 200-239 MG/DL High-Risk: 240 MG/DL and over 56 HDL INTERPRETATION: Undesirable: High Risk: Less than 40 MG/DL Desirable: Low Risk: Greater than 60 MG/DL 57 LDL INTERPRETATION: Low Risk Optimal Level: LDL Less than 100 MG/DL Near or Above Optimal: LDL 100-129 MG/DL Borderline High Risk: LDL 130-159 MG/DL High Risk: LDL 160-189 MG/DL Very High Risk: LDL Greater than 189 MG/DL 58 ---- RUN DATE: 07/09/10 [facility] NMI LIVE PAGE 1 RUN TIME: 1212 Specimen Inquiry RUN USER: INTERFACE -- Name: ADELE PENDLETON Status: REG REF Re07/08/10 Age/Sex: 49/M Unit#: [id number] Location: [facility] : 60 -- Specimen: [id number] Spec Date: 07/08/[address]: Dain hanson MD Spec Type: SURGICAL P Received: 07/08/10-1243 Copies to: Vu Bell MD SPECIMEN 1) ESOPHAGEAL BIOPSIES 2) BIOPSY PROCTITIS HISTORY POST-OP DIAGNOSIS: Colonoscopy to cecum. Erosive esophagitis. Mild gastri tis. Proctitis. CLINICAL INFORMATION: Dysphagia. Rectal bleeding. GROSS DESCRIPTION 1) The specimen is received in formalin labelled Adele Moran. Helder, Esophageal Biopsies, and consists of several fragments of white tissue measuring in aggregate 0.5 x 0.3 x 0.2 cm. Submitted entirely, one cassette labelled 1. 2) The specimen is received in formalin labelled Adelepato Pendleton, Biopsy Proctitis, and consists of two fragments of yellow tissue each measuring 0.2 x 0.2 x 0.1 cm. Submitted entirely, one cassette labelled 2. DIAGNOSIS 1) Esophagus, biopsy: Squamous mucosa with basal layer hyperplasia, elongation of the papillae, and eosinophilic infiltrate (up to 11 per hpf) 2) Rectum, biopsy: A. Fragments of large bowel mucosa with lamina propria edema and focal crypt damage. B. No evidence of acute colitis. Signed Electronically by: LUIS FELIPE SALVADOR 07/09/10 1212 -- -- DEPARTMENT OF PATHOLOGY, [address] [place] [address] [facility] Permit #[id number] Shyam Villa M.D. Director Luis Felipe Salvador M.D. Manager Balance Dir donna -- 59 * SERUM LEVELS OF PSA MEASURED USING THE [place] ACCESS HYBRITECH IMMUNOASSAY SHOULD NOT BE INTERPRETED ABSOLUTE EVIDENCE OF THE PRESENCE OR ABSENCE OF DISEASE. THE PSA VALUE SHOULD BE USED IN CONJUNCTION WITH OTHER PERTINENT CLINICAL DIAGNOSTIC PROCEDURES. A PSA value in the range of 0.1 to 0.6 ng/ml is indeterminate if being used as an indicator of recurrent or residual disease. . 60 CHOLESTEROL INTERPRETATION: Desirable: Less than 200 MG/DL Borderline-High Risk: 200-239 MG/DL High-Risk: 240 MG/DL and over 61 HDL INTERPRETATION: Undesirable: High Risk: Less than 40 MG/DL Desirable: Low Risk: Greater than 60 MG/DL 62 LDL INTERPRETATION: Low Risk Optimal Level: LDL Less than 100 MG/DL Near or Above Optimal: LDL 100-129 MG/DL Borderline High Risk: LDL 130-159 MG/DL High Risk: LDL 160-189 MG/DL Very High Risk: LDL Greater than 189 MG/DL 63 * SERUM LEVELS OF PSA MEASURED USING THE KENZIE TAMEKA ACCESS HYBRITECH IMMUNOASSAY SHOULD NOT BE INTERPRETED ABSOLUTE EVIDENCE OF THE PRESENCE OR ABSENCE OF DISEASE. THE PSA VALUE SHOULD BE USED IN CONJUNCTION WITH OTHER PERTINENT CLINICAL DIAGNOSTIC PROCEDURES. A PSA value in the range of 0.1 to 0.6 ng/ml is indeterminate if being used as an indicator of recurrent or residual disease. . 64 CHOLESTEROL INTERPRETATION: Desirable: Less than 200 MG/DL Borderline-High Risk: 200-239 MG/DL High-Risk: 240 MG/DL and over 65 HDL INTERPRETATION: Undesirable: High Risk: Less than 40 MG/DL Desirable: Low Risk: Greater than 60 MG/DL 66 LDL INTERPRETATION: Low Risk Optimal Level: LDL Less than 100 MG/DL Near or Above Optimal: LDL 100-129 MG/DL Borderline High Risk: LDL 130-159 MG/DL High Risk: LDL 160-189 MG/DL Very High Risk: LDL Greater than 189 MG/DL 67 Test Performed by: [facility] Dpt of Lab Med and Pathology [address] [place] [address] Director Of Procurement: Steve Rodriguez III, M.D. 68 Test Performed by: [facility] of [facility] Med [facility] Pathology [address] [place] [address] Director Of Procurement: Steve Rodriguez III, M.D. 69 * SERUM LEVELS OF PSA MEASURED USING THE KENZIE [place] ACCESS HYBRITECH IMMUNOASSAY SHOULD NOT BE INTERPRETED ABSOLUTE EVIDENCE OF THE PRESENCE OR ABSENCE OF DISEASE. THE PSA VALUE SHOULD BE USED IN CONJUNCTION WITH OTHER PERTINENT CLINICAL DIAGNOSTIC PROCEDURES. A PSA value in the range of 0.1 to 0.6 ng/ml is indeterminate if being used as an indicator of recurrent or residual disease. . 70 Test Performed by: [facility] D[facility] of [facility] Med and Pathology [address] [place] [address] Director Of Procurement: Steve Rodriguez III, M.D. 71 Test Performed by: [facility] Med [facility] Pathology [address] [place] [address] Director Of Procurement: Steve Rodriguez III, M.D. 72 NEGATIVE FOR GROUP A BETA STREPTOCOCCUS 73 NEGATIVE FOR GROUP A STREP 74 The drapery estimator and regulatory agencies both recommend that a throat culture for beta strep be performed if a Rapid Group A Strep assay yields a negative result. Therefore a culture will be automatically performed on all negative samples. N^NEGATIVE FOR GROUP A STREP BY ENZYME IMMUNOASSAY^STREPA 75 FASTING 76 REFERENCE RANGE FOR CHILDREN LESS THAN 6 YRS OF AGE: CDC CLASS* BLOOD LEAD CONCENTRATION (MCG/DL) I LESS THAN OR EQUAL TO 9 IIA 10 - 14 IIB 15 - 19 III 20 - 44 IV 45 - 69 V GREATER THAN OR EQUAL TO 70 *REFER TO CURRENT CDC GUIDELINES FOR COMMENTS AND INTERVENTIONS RECOMMENDED FOR EACH CLASS. CERTIFICATE OF BLOOD LEAD TESTING THIS IS TO CERTIFY THAT THE ABOVE NAMED PATIENT HAS BEEN TESTED FOR BLOOD LEAD. TESTING WAS PERFORMED BY [facility] WHICH IS LICENSED BY [facility] TO PERFORM BLOOD LEAD TESTING. THIS CERTIFICATE IS PROVIDED A SERVICE TO OUR CLIENTS AND THEIR PATIENTS WHO MAY BE REQUIRED TO PRODUCE DOCUMENTATION OF BLOOD LEAD TESTING. . 77 Classification: Desirable . 78 Classification: Low . 79 CALCULATED LDL APPROXIMATES THE VALUE OF A DIRECT LDL MEASUREMENT. Classification: Borderline High . 80 * SERUM LEVELS OF PSA MEASURED USING THE KENZIE Mondeca ACCESS HYBRITECH IMMUNOASSAY SHOULD NOT BE INTERPRETED ABSOLUTE EVIDENCE OF THE PRESENCE OR ABSENCE OF DISEASE. THE PSA VALUE SHOULD BE USED IN CONJUNCTION WITH OTHER PERTINENT CLINICAL DIAGNOSTIC PROCEDURES. A PSA value in the range of 0.1 to 0.6 ng/ml is indeterminate if being used as an indicator of recurrent or residual disease. . 81 TEST PERFORMED BY: [employer] [address] [place] [id number] 82 Classification: Desirable . 83 Classification: Low . 84 CALCULATED LDL APPROXIMATES THE VALUE OF A DIRECT LDL MEASUREMENT. Classification: Near or above optimal . 85 * SERUM LEVELS OF PSA MEASURED USING THE KENZIE Mondeca ACCESS HYBRITECH IMMUNOASSAY SHOULD NOT BE INTERPRETED ABSOLUTE EVIDENCE OF THE PRESENCE OR ABSENCE OF DISEASE. THE PSA VALUE SHOULD BE USED IN CONJUNCTION WITH OTHER PERTINENT CLINICAL DIAGNOSTIC PROCEDURES. A PSA value in the range of 0.1 to 0.6 ng/ml is indeterminate if being used as an indicator of recurrent or residual disease. . 86 Classification: Desirable . 87 Classification: Low . 88 CALCULATED LDL APPROXIMATES THE VALUE OF A DIRECT LDL MEASUREMENT. Classification: Optimal Level . 89 Anion gap measurement may be of limited value in the presence of any alkalosis, especially in a combined acid base disorder. . Procedures Date CPT Code Description Status Comment 12/05/2016 Colonoscopy Completed 2016: diverticulosis with colitis, otherwise normal, fu 10yrs; 2010:no polyps (P: repeat 10yrs) 03/20/2015 13773 Electrocardiogram Complete Completed 06/04/2013 60374 Excise Malig Lesion 2.1-3CM Completed Trunk/Arm/Leg 05/07/2013 08688 Biopsy Skin Lesion Each Addtl Completed 05/07/2013 08069 Biopsy Skin Lesion Single Completed 04/17/2013 95000 Electrocardiogram Complete Completed 02/12/2013 40575 Omt 3 To 4 Body Regions Completed Involved 02/05/2013 32013 Omt 3 To 4 Body Regions Completed Involved 02/05/2013 02244 SC/Im Injections Completed 11/13/2008 90552 Tympanometry Completed 11/13/2008 66035 Pure Tone, Threshold Completed 11/13/2008 97759 Remove Impact Cerumen Completed Requiring Instrument, Unilateral 12/09/2005 98627 Inject/Drain Joint/Bursa Completed Major Encounters Type Date Location Provider CPT E/M Dx Office Visit 04/24/2017 3:45p Main Office Vu Bell M.D. 72136 E03.9 E29.1 I10 M25.511 M25.512 M25.562 M25.561 Office Visit 07/06/2016 11:00a Main Office Vu Bell M.D. 45539 R10.32 R10.30 R53.83 E03.9 E29.1 Office Visit 03/20/2015 8:55a Main Office Vu Bell M.D. 28179 E03.9 I10 E71.30 K20.0 E29.1 Z00.01 Office Visit 09/16/2014 8:45a Main Office Vu Bell M.D. 17329 244.9 401.1 257.8 789.32 Office Visit 06/17/2014 2:15p Main Office Vu Bell M.D. 56777 244.9 401.1 257.8 Office Visit 03/25/2014 8:45a Main Office Vu Bell M.D. 99115 562.11 257.8 401.1 244.9 272.8 593.9 530.13 787.24 Office Visit 01/22/2014 11:00a Main Office Vu Bell M.D. 02950 530.13 787.24 401.1 257.8 724.2 Office Visit 09/04/2013 8:30a Main Office Vu Bell M.D. 46513 401.1 Office Visit 06/04/2013 2:00p Main Office Vu Bell M.D. 73841 530.13 238.2 257.8 172.6 Office Visit 05/07/2013 2:00p Main Office Vu Bell M.D. 68933 238.2 401.1 257.8 Office Visit 04/17/2013 9:45a Main Office Vu Bell M.D. 45912 V70.0 244.9 272.8 530.13 257.8 401.1 727.03 238.2 786.2 V76.44 Office Visit 02/12/2013 9:30a Main Office Omid Hood D.O. 49335 724.2 729.1 739.3 739.4 739.5 401.1 V68.1 Office Visit 02/05/2013 9:30a Main Office Omid Hood D.O. 19672 724.2 729.1 739.3 739.4 739.5 739.6 V68.1 E927.0 244.9 Office Visit 04/06/2012 10:30a Main Office Vu eBll M.D. 52183 V70.0 272.8 V76.44 244.9 530.13 257.8 726.32 728.71 728.89 796.2 Office Visit 01/18/2011 4:45p Main Office Maverick Mejia M.D. 40107 462 786.2 Office Visit 10/19/2010 4:30p Main Office Vu Bell M.D. 31996 244.9 272.8 530.13 257.8 Office Visit 04/28/2010 8:30a Main Office Vu Bell M.D. 97846 726.32 788.43 Office Visit 04/14/2010 3:30p Main Office Vu Bell M.D. 54215 244.9 607.84 780.79 780.52 788.43 272.8 327.23 787.23 726.32 719.41 Office Visit 11/02/2009 2:00p Main Office Vu Bell M.D. 98145 244.9 607.84 780.79 724.2 780.52 788.43 272.8 Office Visit 05/13/2009 2:00p Main Office Vu Bell M.D. 78438 780.79 607.84 244.9 272.8 724.2 Office Visit 01/17/2009 9:30a Main Office Vu Bell M.D. 09828 780.79 607.84 244.9 719.41 724.2 Office Visit 11/20/2008 3:30p Main Office Nurse's Schedule 32367 607.84 Office Visit 11/13/2008 5:00p Main Office Maverick Mejia M.D. 22851 385.00 382.9 389.10 388.70 Office Visit 11/04/2008 4:15p Main Office Vu Bell M.D. 73328 780.79 607.84 244.9 382.9 Office Visit 08/13/2008 9:30a Main Office Vu Bell M.D. 39014 796.2 443.0 607.84 788.43 Office Visit 07/04/2008 4:30p Main Office Vu Bell M.D. 18442 443.0 796.2 788.43 607.84 Office Visit 04/04/2008 3:30p Main Office Vu Bell M.D. 65149 443.0 244.9 796.2 780.52 788.43 Office Visit 02/13/2008 4:15p Main Office Vu Bell M.D. 77254 443.0 796.2 244.9 780.52 607.84 Office Visit 09/11/2007 1:15p Main Office Vu Bell M.D. 73806 724.2 724.2 Office Visit 08/29/2007 1:15p Main Office Vu Bell M.D. 17993 724.2 724.2 Office Visit 05/16/2007 9:45a Main Office Vu Bell M.D. 33503 244.9 241.1 780.79 607.84 780.52 724.2 V76.44 V15.86 V77.1 272.8 v06.1 v07.2 Office Visit 01/04/2006 12:55p Main Office gurinder 41164 719.41 Office Visit 12/05/2005 8:30a Main Office gurinder 99889 719.41 285.9 244.9 780.55 257.8 Office Visit 06/16/2005 1:45p Main Office klepack 54828 285.9 272.8 Office Visit 05/17/2005 10:45a Main Office klepack 17684 719.41 272.8 780.55 257.8 602.9 V70.0 Office Visit 08/11/2004 1:45p Main Office klepack 80065 719.41 Office Visit 02/27/2004 12:55p Main Office klepack 82060 272.8 780.55 257.8 Office Visit 04/04/2003 4:15p Main Office klepack 33386 272.8 780.55 Office Visit 10/24/2002 3:30p Main Office klepack 85627 V70.0 Plan of Care Future Appointment(s):07/24/2017 9:30 am - Vu Bell M.D. at [facility]/24/2017 - Vu Bell M.D.E03.9 Hypothyroidism, unspecifiedComments:Will get TSH and check Testosterone levels tomorrow (he is now ~2wks since last testosterone injection).E29.1 Testicular hypofunctionNew Medication:BD 3ML Luer-Gabriel Syringe/23G X 1-1/2" 23 G X 1-1/2" 3 MLFollow up:Get bloodwork done tomorrow!!I10 Essential (primary) hypertensionComments:His BP is concerning. Reportedly labile. Will recheck in ~3mo.Follow up:RTO 3 months recheck BP.M25.511 Pain in right shoulderNew Medication:Gabapentin 100 mgComments:Bilater shoulder pain w/ advanced intrinsic shoulder derangements at least on the R side (w/ MRI last year showing multiple RTC muscle tears, LH of biceps tear, AC arthritis, labral tear.) Discussed many options for trying to address his chronic non cancer non neuropathic pain incl Lyrica and gabapentin ( both unlikely to help much), TCAs (he is unwilling b/o S/E profile), Duloxetine (he is unwilling to take it b/o S/Es he has heard on ads specifically risk of SI even though I advised him this was really not a concern in folks at his age) . we also discussed opiates/tramadol, reviewed risk of OIH, dependence and tolerance and lack of long term acute care registered nurse benefit althoug mago jackson consider occasional HS dosing to help sleep during his particularly problem times. He elected to try gabapenin. We discussed S/Es, risks, risk w/ abrupt cessation. WRT dosing will start low and go slow. Initially 100mg at HS and incby 1 dose/d until 100mg tid then wait a week and increase again the same way (ie to 200mg tid over 3days) then after another week up to 300mg tid, again increasing by 100mg/ d. Discussed numerous S/es,risk of abruptly stopping the medication. He will call us w/ an update in a few weeks and we will gofrom there.M25.512 Pain in left shoulderNew Medication:Gabapentin 100 mgM25.562 Pain in left kneeM25.561 Pain in right knee
== END 2017-05-01 09:54 | disposition home or self-care (01) ==
LOC: UCEAST 08:54
DX: J32.8 Other chronic sinusitis (principal); R03.0 Elevated blood-pressure reading, without diagnosis of hypertension; E03.9 Hypothyroidism, unspecified
CPT/HCPCS: 87502; 87651; 99212; G0463

== ENCOUNTER 2018-02-20 13:24 | Day surgery (SDC) | payer BC ==
[~2018-02-20 13:24] MED LIST: Buffered Lidocaine 0.9% SYRIN* 5 ML/SYR SYRINGE INTRADERM ONE
[2018-02-20] MEDS ORDERED: ceFAZolin 2 GM PREMIX in ORs 2 GM/50 ML BAG IVPB ONE (14:10)
[2018-02-20] MEDS ORDERED: Bupivacaine 0.25% EPI 200,000* 30 ML SDV ONE (16:06)
[2018-02-20] MEDS ORDERED: Lidocain 1% EPI 1:100,000 * 30 ML MDV ONE (16:06)
[2018-02-20] MEDS ORDERED: Bupivacaine 0.25% SDV PF* 10 ML VIAL INJ ONE (16:20)
[2018-02-20] MEDS ORDERED: Midazolam* 1 MG/ML 5 ML VIAL (5 MG) ONE (16:21)
[2018-02-20] MEDS ORDERED: fentaNYL* 50 MCG/ML 2 ML VIAL (100 MCG VIAL) ONE (16:21)
[2018-02-20] MEDS ORDERED: Midazolam* 1 MG/ML 2 ML VIAL (2 MG) ONE (16:27)
[2018-02-20 17:55] VITALS: BP 132/93
== END 2018-02-20 18:01 | disposition home or self-care (01) ==
LOC: OR 13:24
PROVIDERS: ATTEND Plastic Surgery
DX: L72.8 Other follicular cysts of the skin and subcutaneous tissue (principal); I10 Essential (primary) hypertension; E03.9 Hypothyroidism, unspecified
CPT/HCPCS: 88304; J0690; J2250; J3010; J3490

== ENCOUNTER 2018-03-11 19:33 | Emergency (ER) | payer BC ==
--- OUTSIDE RECORDS SUMMARY | 2018-03-11 19:45 | XMS REPORT | Continuity of Care Document ---
:1960 External Reference #:[id number] Author Name Vu Bell M.D. Address [address] [facility] [address] [place] [address] Care Team Providers Name Role Phone HCP given Primary Care Physician Unavailable Payers Type Date Identification Numbers Payment Provider Subscriber Policy Number: [id number] [employer] Ind/Ppo/Hmo/Pos Adele Pendleton Group Number: INDEMNITY [address] [address] PayID: [id number] LAZARO [place] [address] Effective: Policy Number: [employer] Ind/Ppo/Hmo/Pos Adele Pendleton 2012 [id number] Expires: 2013 PayID: [id number] [address] [address] LAZARO [place] [address] Advance Directives Description No Information Available Problems Date Description Provider Status Onset: 04/14/2010 [...] D.O. Active Onset: 02/12/2013 Myalgia & Myositis Unspecified Omid Hood D.O. Active Onset: 02/12/2013 Benign essential hypertension Omid Hood D.O. Active Onset: 03/20/2015 Essential hypertension Vu Bell M.D. Active Onset: 03/20/2015 Disorder of fatty acid metabolism Vu Bell M.D. Active Onset: 03/20/2015 Testicular hypofunction Vu Bell M.D. Active Family History Date Family Member(s) Problem(s) Comments General Mat aunt w/ breast CA and of CVA; Mat uncle had some kind of cancer : (2009) Father due to Natural Causes Mother Cerebrovascular Accident (CVA) ~age 70 First Daughter Kanika First Daughter 02/01/96 Number of Siblings Siblings: 1 sister. 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 [employer] Tobacco Use Start: Unknown Tobacco Of Any Kind Denies Use Tobacco Use Reviewed: 01/22/14 Denies Cigarette Use Smoking Status Reviewed: 01/22/14 Denies Cigarette Use ETOH Use Rarely consumes alcohol Sun Exposure minimum amount of sun exposure Sun Exposure Uses sunscreen Seat Belt/Car Seat always uses seat belt Allergies, Adverse Reactions, Alerts Description No Known Drug Allergies Medications Medication Date Status Form Strength Qnty SIG Indications Ordering Provider Plaquenil 02/21 Active Tablets 200mg 30tab 1 tablet by Unknown s mouth daily Sildenafil 02/20 Active Tablets 100mg 6tabs take 1 tablet N52.9 Silcoff , Citrate by mouth daily Vu, if needed as M.D. directed Gabapentin 05/22 Active Capsules 100mg 450ca 2 capsules M25.512 Silcoff , ps every morning, Vu, 1 in afternoon, M.DPorsche 2 in evening; for bilateral shoulder pain Levothyroxine 05/01 Active Tablets 150mcg 90tab take one tablet E03.9 Silcoff, Sodium s by mouth every Vu, morning on an M.D. empty stomach; for thyroid; blood test due spring 2018 BD 3ML 04/24 Active Misc 23G X 10uni use as E29.1 Silcoff, Luer-Gabriel -03/14" 3 ts directed, Vu, Syringe/23G X ML q2-3weeks, for M.D. 1-03/14" administration of testosterone Dexilant 02/11 Active Capsules 60mg take one Unknown DR capsule by mouth once to twice a day Tamsulosin HCL 04/23 Active Capsules 0.4mg 1 by mouth every day Testosterone 07/06 Active Solution 200mg/ml 10ml inject 1.5cc N52.9 Silmarito, Cypionate /2016 intramuscularly Vu, every 2wks; for M.D. testosterone replacement; mdd 1.5cc q2wks E29.1 Gabapentin 04/24/ Hx Capsules 100mg 90cap 1 by mouth at night M25.5 Silmarito, 2018 - s on day 1 then 1 in 12 Melanie Womack 05/22/ in the morning and 2017 at bedtime on day 2 then 1 capsule 3x/day; then inc as advised Levothyroxine 08/15/ Hx Tablets 100mcg 90tab take 1 tablet by E03.9 Silcoff, Sodium 2016 - s mouth every morning Melanie Womack 05/01/ on an empty stomach 2017 (along with an 88mcg strength tab); for thyroid Levothyroxine 08/15/ Hx Tablets 88mcg 90tab take 1 tablet by E03.9 Silcoff, Sodium 2016 - s mouth every morning Melanie Womack 05/01/ on an empty stomach 2017 (along with a 100mcg strength tab); for thyroid Levothyroxine 08/06/ Hx Tablets 200mcg 90tab take 1 tab by mouth E03.9 Silcoff, Sodium 2017 - s 6d/wk and 1/2 tab Melanie Womack 08/15/ 1d/wk; take in the 2016 morning on an empty stomach; for thyroid; blood test due Oct 2016 Levothyroxine 07/06/ Hx Tablets 200mcg 90tab take 1 tablet by E03.9 Silcoff, Sodium 2017 - s mouth every morning Melanie Womack 08/06/ on an empty stomach; 2016 for thyroid Metronidazole 07/03/ Hx Tablets 500mg 20tab take 1 tablet by Unknown 2017 - s mouth twice a day 07/06/ for 10 days 2016 Ciprofloxacin HCL 07/03/ Hx Tablets 500mg 20tab Take 1 Tablet Twice Unknown 2016 - s Daily 2016 Levothyroxine 03/20/ Hx Tablets 200mcg 60tab take 1 tablet by E03.9 Silcoff, Sodium 2015 - s mouth in the morning Melanie Womack 07/06/ on an empty stomach 2017 5x/wk (take 175mcg/d 2x/wk) Levothyroxine Hx Tablets 175mcg 25tab take 1 tablet by E03.9 Silcoff, Sodium 2016 - s mouth in the morning Melanie Womack 07/06/ on an empty stomach 2017 2x/wk (take 200mcg on other days) Testosterone Hx Solution 200mg/ 10ml inject 1.5cc N52.9 Silcoff, Cypionate 2016 - ml intramuscularly Melanie Womack 07/05/ every 2wks MDD: 2017 1.5cc q2wks E29.1 Ibuprofen 09/16/2014 - Hx Tablets 800mg 90tabs 1 by mouth every Silcoff, 04/23/2017 8 hours as needed uV for joint pain M.D. Levothyroxine 09/14/2014 - [...] 1.5cc 60 Silcoff, Cypionate 03/19/2015 intramuscularly 7. Vu, every 3wks 84 M.D. E29.1 Diazepam 06/14/2014 [...] Maverick Thacker 06/16/2014 t twice a day rosenda Mejiaed M.D. (not inhaled) 787.24 Omeprazole 01/22/2014 - Hx [...] - Hx Capsules 0.4mg 2 by mouth Husseini, 10/18/2012 every day 30min MD Dawson after [...] 724. Silcoff, 09/16/2014 three times a 2 Vu, day as needed M.D. for joint pain Depo-Testosteron 05/13/2009 - Hx Solution 200mg/ml 10ml inject 1cc 607. Silcoff, e 03/25/2014 q2-3wks 84 Melanie Womack 257.8 Tizanidine HCL 01/17/2009 - Hx Tablets 4mg 90tabs one tablet 724.2 Silcoff, 11/01/2009 po q6h prn Vu for back M.D. pain PT For Right 01/17/2009 - Hx evaluate and 719.41 Silcoff, Shoulder Pain 11/01/2009 treatVu modalities M.D. prn, instruct in hep Levothyroxine 01/17/2009 - Hx Tablets 150mc 90tabs take 1 244.9 Silcoff , Sodium 10/19/2010 g tablet by Vu, mouth Every M.D. Morning On An Empty Stomach Depo-Testosterone 11/04/2008 - Hx Oil 200mg 10ml inject 1cc 607.84 Silcoff, 05/13/2009 /ml q2wks Melanie Womack Syringes/Carson 11/04/2008 - Hx 10units PLease 607.84 Silcoff, For Testosterone 05/06/2013 provide 22gVu Administration 1.5" needles M.D. with 3cc syringes Androderm 08/13/2008 - Hx Patches 2.5mg 30units apply 1 607.84 Silcoff, 11/04/2008 24HR /24HR patch to Vu skin as Melanie directed; change daily; may increase to 2 [...] q8h prn 724.2 Silcoff, 11/01/2009 for severe Vu, muscle M.D. spasms in back Oxycodone HCL [...] Silcoff, 10/18/2010 Tablet By Cathy Womack If M.D. Needed as Directed Viagra 07/07/2003 - Hx Tablets 100mg 6tabs 1 by mouth N52.9 Silcoff, 02/20/2018 as needed Vu, for ed M.D. Ambien 04/04/2003 - Hx Tablets 5mg 30tabs 2 po qhs klepack 05/18/2005 first three days of new sleep cycle. 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 Norflex 10/25/2002 - [...] CPT Code Status Date Vaccine Lot # 34710 Given 05/16/2007 Adacel or Boostrix, TDaP [id number] Given 12/14/2004 DO Not Use- use U-code instead -Unlisted Immunization Procedure 56992 Given 02/27/2004 Hep B Immunization, Adult [id number] Refused 08/18/2017 Shingrix Zoster (Shingles) Vaccine (HZV) Recomb,Subnit,Adjuvanted 35395 Refused 08/18/2017 Td Immunization 75951 Refused 04/17/2013 Flu, Split Virus 3Yrs 84340 Refused 04/06/2012 Flu, Split Virus 3Yrs Vital Signs Date Vital Result Comment 02/28/2018 11:00am BP Systolic 138 mmHg BP Diastolic 80 mmHg Height 68.50 inches 5'8.50" Weight 220.00 lb BMI (Body Mass Index) 33.0 kg/m2 08/18/2017 11:44am BP Systolic 160 mmHg BP Diastolic 90 mmHg BP Systolic Recheck 136 mmHg R arm sitting BP Diastolic Recheck 88 mmHg R arm sitting Weight 220.00 lb 04/24/2017 3:58pm BP Systolic 138 mmHg BP Diastolic 82 mmHg BP Systolic Recheck 140 mmHg R arm sitting BP Diastolic Recheck 96 mmHg R arm sitting Height 68.5 inches 5'8.50" Weight 220.00 lb BMI (Body Mass Index) 33.0 kg/m2 07/06/2016 11:05am BP Systolic 142 mmHg BP Diastolic 70 mmHg Weight 220.00 lb 03/20/2015 9:10am BP Systolic 138 mmHg BP Diastolic 90 mmHg BP Systolic Recheck 158 mmHg R arm sitting BP Diastolic Recheck 94 mmHg R arm sitting Height 68.75 inches 5'8.75" Weight 227.00 lb BMI (Body Mass Index) 33.8 kg/m2 09/16/2014 8:50am BP Systolic 120 mmHg BP Diastolic 80 mmHg BP Systolic Recheck 128 mmHg R arm sitting BP Diastolic Recheck 84 mmHg R arm sitting Height 69 inches 5'9" Weight 212.00 lb BMI (Body Mass Index) 31.3 kg/m2 06/17/2014 3:00pm BP Systolic 150 mmHg BP Diastolic 84 mmHg Weight 224.00 lb 03/25/2014 9:04am BP Systolic 140 mmHg BP Diastolic 90 mmHg BP Systolic Recheck 134 mmHg R arm sitting BP Diastolic Recheck 92 mmHg R arm sitting Weight 222.00 lb 01/22/2014 11:09am BP Systolic 146 mmHg BP Diastolic 100 mmHg BP Systolic Recheck 148 mmHg BP Diastolic Recheck 102 mmHg Body Temperature 98.0 F Height 68.75 inches 5'8.75" Weight 231.00 lb BMI (Body Mass Index) 34.4 kg/m2 09/04/2013 8:32am BP Systolic 150 mmHg BP Diastolic 100 mmHg BP Systolic Recheck 152 mmHg R arm sitting BP Diastolic Recheck 98 mmHg R arm sitting Weight 230.00 lb shoes on 05/07/2013 1:57pm BP Systolic 141 mmHg BP Diastolic 86 mmHg BP Systolic Recheck 132 mmHg R arm w/ auto cuff; 130/82 w/ lg manual cuff BP Diastolic Recheck 84 mmHg R arm w/ auto cuff; 130/82 w/ lg manual cuff Heart Rate 88 /min 04/17/2013 10:02am BP Systolic 160 mmHg BP Diastolic 80 mmHg BP Systolic Recheck 148 mmHg R arm sitting BP Diastolic Recheck 90 mmHg R arm sitting Heart Rate 58 /min reg Respiratory Rate 12 /min not laboured Height 68.75 inches 5'8.75" Weight 221.00 lb BMI (Body Mass Index) 32.9 kg/m2 02/12/2013 9:35am BP Systolic 140 mmHg please recheck this BP Diastolic 108 mmHg please recheck this 02/05/2013 9:38am BP Systolic 144 mmHg BP Diastolic 98 mmHg Height 68.75 inches 5'8.75" Weight 230.00 lb BMI (Body Mass Index) 34.2 kg/m2 04/06/2012 10:16am BP Systolic 140 mmHg BP Diastolic 92 mmHg BP Systolic Recheck 138 mmHg R arm sitting BP Diastolic Recheck 100 mmHg R arm sitting Heart Rate 76 /min reg Respiratory Rate 12 /min not laboured Height 68.75 inches 5'8.75" Weight 219.00 lb BMI (Body Mass Index) 32.6 kg/m2 01/18/2011 4:57pm BP Systolic 126 mmHg BP Diastolic 70 mmHg Heart Rate 80 /min Respiratory Rate 16 /min Body Temperature 97.8 F Weight 222.00 lb 10/19/2010 5:01pm BP Systolic 138 mmHg BP Diastolic 82 mmHg Height 68.50 inches 5'8.50" Weight 220.00 lb BMI (Body Mass Index) 33.0 kg/m2 04/14/2010 3:34pm BP Systolic 134 mmHg BP Diastolic 84 mmHg Height 68.75 inches 5'8.75" Weight 216.00 lb BMI (Body Mass Index) 32.1 kg/m2 03/02/2010 5:48pm BP Systolic 134 mmHg BP Diastolic 92 mmHg Weight 226.00 lb Last Menstrual Period 0 11/02/2009 2:39pm BP Systolic 132 mmHg BP Diastolic 90 mmHg Heart Rate 68 /min reg Respiratory Rate 12 /min not laboured Height 68.50 inches 5'8.50" Weight 214.00 lb BMI (Body Mass Index) 32.1 kg/m2 Last Menstrual Period 0 05/13/2009 2:17pm BP Systolic 130 mmHg BP Diastolic 90 mmHg Weight 218.00 lb 01/17/2009 9:34am BP Systolic 124 mmHg BP Diastolic 76 mmHg Height 69 inches 5'9" Weight 216.00 lb BMI (Body Mass Index) 31.9 kg/m2 11/13/2008 4:49pm BP Systolic 138 mmHg BP Diastolic 88 mmHg Body Temperature 98.2 F 11/13/2008 4:48pm BP Systolic 138 mmHg BP Diastolic 88 mmHg Body Temperature 98.2 F 11/04/2008 4:46pm BP Systolic 116 mmHg BP Diastolic 88 mmHg Weight 212.00 lb 08/13/2008 9:29am BP Systolic 120 mmHg BP Diastolic 76 mmHg Height 68.50 inches 5'8.50" Weight 210.00 lb BMI (Body Mass Index) 31.5 kg/m2 Last Menstrual Period 0 07/04/2008 5:08pm BP Systolic 138 mmHg BP Diastolic 84 mmHg BP Systolic Recheck 134 mmHg R arm sitting BP Diastolic Recheck 94 mmHg R arm sitting Weight 210.00 lb 04/04/2008 3:33pm BP Systolic 120 mmHg BP Diastolic 86 mmHg Weight 210.00 lb Last Menstrual Period 0 02/13/2008 4:19pm BP Systolic 130 mmHg BP Diastolic 98 mmHg BP Systolic Recheck 156 mmHg R arm sitting BP Diastolic Recheck 104 mmHg R arm sitting Height 69 inches 5'9" Weight 224.00 lb BMI (Body Mass Index) 33.1 kg/m2 09/11/2007 1:24pm BP Systolic 134 mmHg BP Diastolic 80 mmHg Height 69 inches 5'9" Weight 220.00 lb BMI (Body Mass Index) 32.5 kg/m2 08/29/2007 1:05pm BP Systolic 130 mmHg BP Diastolic 80 mmHg Height 69 inches 5'9" Weight 220.00 lb BMI (Body Mass Index) 32.5 kg/m2 05/16/2007 9:25am BP Systolic 124 mmHg BP Diastolic 80 mmHg Height 69 inches 5'9" Weight 214.50 lb BMI (Body Mass Index) 31.7 kg/m2 01/04/2006 12:56pm BP Systolic 140 mmHg BP Diastolic 90 mmHg Height 69 inches 5'9" Weight 210.00 lb BMI (Body Mass Index) 31.0 kg/m2 12/09/2005 4:25pm BP Systolic 124 mmHg BP Diastolic 92 mmHg Height 69 inches 5'9" Weight 207.50 lb BMI (Body Mass Index) 30.6 kg/m2 12/05/2005 8:30am BP Systolic 110 mmHg BP Diastolic 90 mmHg Height 69 inches 5'9" Weight 210.00 lb BMI (Body Mass Index) 31.0 kg/m2 06/16/2005 1:55pm BP Systolic 134 mmHg BP Diastolic 76 mmHg Height 69 inches 5'9" 05/17/2005 10:55am BP Systolic 136 mmHg BP Diastolic 84 mmHg Height 69 inches 5'9" Weight 203.00 lb BMI (Body Mass Index) 30.0 kg/m2 08/11/2004 1:56pm BP Systolic 120 mmHg lg cuff BP Diastolic 82 mmHg lg cuff Height 69 inches 5'9" Weight 221.00 lb BMI (Body Mass Index) 32.6 kg/m2 02/27/2004 12:54pm BP Systolic 130 mmHg BP Diastolic 78 mmHg Weight 217.00 lb Last Menstrual Period 0 Results Test Date Facility Test Result H/L Range Note Urinalysis Profile 02/12/2018 [facility] Urine Color Colorless [phone] Urine Appearance Clear Urine Specific Dod[place]idge 1.004 Low 1.010-1.030 Urine pH 6.0 N 5-9 Urine Urobilinogen Negative Negative Urine Ketones Negative Negative Urine Protein Negative Negative Urine Leukocytes Negative Negative Urine Blood 1+ Abnormal Negative Urine Nitrite Negative Negative Urine Bilirubin Negative Negative Urine Glucose Negative Negative Urine White Blood Cell Absent Absent Urine Red Blood Cell Trace(0-2/hpf) Absent Urine Bacteria Absent Absent Comp Metabolic Panel 02/12/2018 [facility] Sodium 138 mmol/L N 135- 145 [phone] Chloride 104 mmol/L N 101-111 Co2 Carbon Dioxide 30 mmol/L N 22-32 Glucose 84 mg/dL N 70-100 Blood Urea Nitrogen 24 mg/dL N 6-24 Creatinine 1.04 mg/dL N 0.67-1.17 BUN/Creatinine Ratio 23.1 High 8-20 Calcium 9.7 mg/dL N 8.6-10.3 Total Protein 6.9 g/dL N 6.4-8.9 Albumin 4.3 g/dL N 3.2-5.2 Globulin 2.6 g/dL N 2-4 Albumin/Globulin Ratio 1.7 N 1-3 Total Bilirubin 0.70 mg/dL N 0.2-1.0 Alkaline Phosphatase 62 U/L N 34-104 Alt 25 U/L N 7-52 Ast 22 U/L N 13-39 Egfr Non- 73.6 >60 Egfr 89.1 >60 1 Potassium 5.1 mmol/L High 3.5-5.0 Anion Gap 4 mmol/L N 2-11 Laboratory test 02/12/2018 [facility] Creatine 310 U/L High 10-223 finding [phone] Kinase(CK) Laboratory test 12/19/2017 [facility] Magnesium 1.9 mg/dL N 1.9-2.7 2 finding [phone] Rheumatoid Factor < 10 IU/mL N <15 3 C Reactive Protein 4.11 mg/L N <8.01 4 Erythrocyte Sed Rate 11 mm/Hr N 0-20 5 Laboratory test 12/19/2017 [facility] Vitamin D, 1,25 46 pg/mL 18- 64 6 finding [phone] Dihydroxy Kayley Igg AB Reflex 12/19/2017 [facility] SS-A/Ro Antibody 0.2 U 7 [phone] SS-B/La Antibody 0.2 U 8 Sm (Boyd) IgG Antibody 0.8 U 9 SURVEYING TECHNICIAN Antibody, IgG 0.3 U 10 Scl-70 (Scleroderma) Antibody <0.2 U 11 Andie-1 Antibody 0.3 U 12 Laboratory test 12/19/2017 [facility] Anti Double 40.1 IU/mL Abnormal 13 finding [phone] Stranded Dna AB Hla B27 12/19/2017 [facility] Hla B27 Positive 14 [phone] Hla B27 Interp See Comment 15 Testosterone Free 09/15/2017 [facility] Free Testosterone 4.28 ng/dL 3.87-14.7 16 & Total [phone] ng/dl Testosterone 214 ng/dL Abnormal 240-950 17 CBC Auto Diff 09/15/2017 [facility] White Blood Count 6.3 10^3/uL N 3.5-10.8 [phone] Red Blood Count 5.22 10^6/uL N 4.00-5.40 Hemoglobin 15.4 g/dL N 14.0-18.0 Hematocrit 45 % N 42-52 Mean Corpuscular Volume 87 fL N 80-94 Mean Corpuscular Hemoglobin 30 pg N 27-31 Mean Corpuscular HGB Conc 34 g/dL N 31-36 Red Cell Distribution Width 14 % N 10.5-15 Platelet Count 307 10^3/uL N 150-450 Mean Platelet Volume 7.5 um3 N 7.4-10.4 Abs Neutrophils 4.4 10^3/uL N 1.5-7.7 Abs Lymphocytes 1.2 10^3/uL N 1.0-4.8 Abs Monocytes 0.5 10^3/uL N 0-0.8 Abs Eosinophils 0.2 10^3/uL N 0-0.6 Abs Basophils 0 10^3/uL N 0-0.2 Abs Nucleated RBC 0 10^3/uL Granulocyte % 70.0 % N 38-83 Lymphocyte % 18.5 % Low 25-47 Monocyte % 7.7 % High 0-7 Eosinophil % 3.1 % N 0-6 Basophil % 0.7 % N 0-2 Nucleated Red Blood Cells % 0 Laboratory test 09/15/2017 [facility] PSA Screening 1.268 ng/mL N 0- 4.000 18 finding [phone] Laboratory test 08/14/2017 [facility] TSH (Thyroid 0.95 mcIU/mL N 0.34-5.60 finding [phone] Stim Horm) Rapid Influenza 05/01/2017 [facility] Influenza A NEGATIVE Negative 19 A & B Molecular [phone] Molecular Influenza B Molecular NEGATIVE Negative Laboratory test 05/01/2017 [facility] Rapid Strep Negative Negative 20 finding [phone] Molecular Laboratory test 04/25/2017 [facility] TSH (Thyroid < 0.01 Low 0.34- 5.60 21 finding [phone] Stim Horm) mcIU/mL Urinalysis 03/07/2017 [facility] Urine Color Yellow Profile [phone] Urine Appearance Clear Urine Specific [place]idge 1.020 N 1.010-1.030 Urine pH 6.0 N 5-9 Urine Urobilinogen Negative Negative Urine Ketones Negative Negative Urine Protein Negative Negative Urine Leukocytes Negative Negative Urine Blood 1+ Abnormal Negative Urine Nitrite Negative Negative Urine Bilirubin Negative Negative Urine Glucose Negative Negative Urine White Blood Cell Absent Absent Urine Red Blood Cell 2+(6-10/hpf) Abnormal Absent Urine Bacteria Absent Absent CBC Auto Diff 03/07/2017 [facility] White Blood Count 5.6 10^3/uL N 3.5-10.8 [phone] Red Blood Count 4.94 10^6/uL N 4.0-5.4 Hemoglobin 14.9 g/dL N 14.0-18.0 Hematocrit 44 % N 42-52 Mean Corpuscular Volume 88 fL N 80-94 Mean Corpuscular Hemoglobin 30 pg N 27-31 Mean Corpuscular HGB Conc 34 g/dL N 31-36 Red Cell Distribution Width 13 % N 10.5-15 Platelet Count 292 10^3/uL N 150-450 Mean Platelet Volume 7 um3 Low 7.4-10.4 Abs Neutrophils 3.4 10^3/uL N 1.5-7.7 Abs Lymphocytes 1.2 10^3/uL N 1.0-4.8 Abs Monocytes 0.6 10^3/uL N 0-0.8 Abs Eosinophils 0.3 10^3/uL N 0-0.6 Abs Basophils 0.1 10^3/uL N 0-0.2 Abs Nucleated RBC 0 10^3/uL Granulocyte % 61.0 % N 38-83 Lymphocyte % 20.8 % Low 25-47 Monocyte % 10.7 % High 1-9 Eosinophil % 6.2 % High 0-6 Basophil % 1.3 % N 0-2 Nucleated Red Blood Cells % 0.1 Comp Metabolic Panel 03/07/2017 [facility] Sodium 136 mmol/L N 133- 145 [phone] Potassium 4.6 mmol/L N 3.5-5.0 Chloride 104 mmol/L N 101-111 Co2 Carbon Dioxide 27 mmol/L N 22-32 Anion Gap 5 mmol/L N 2-11 Glucose 97 mg/dL N 70-100 Blood Urea Nitrogen 26 mg/dL High 6-24 Creatinine 1.13 mg/dL N 0.67-1.17 BUN/Creatinine Ratio 23.0 High 8-20 Calcium 9.1 mg/dL N 8.6-10.3 Total Protein 7.1 g/dL N 6.4-8.9 Albumin 4.1 g/dL N 3.2-5.2 Globulin 3.0 g/dL N 2-4 Albumin/Globulin Ratio 1.4 N 1-3 Total Bilirubin 0.70 mg/dL N 0.2-1.0 Alkaline Phosphatase 56 U/L N 34-104 Alt 53 U/L High 7-52 Ast 31 U/L N 13-39 Egfr Non- 67.1 >60 Egfr 86.3 >60 22 Laboratory test finding 03/07/2017 [facility] Lipase 43 U/L N 11.0- 82.0 [phone] C Reactive Protein 19.29 mg/L High < 5.00 23 Lactic Acid 0.8 mmol/L N 0.5-2.0 24 Laboratory test 01/09/2017 [facility] PSA Screening 1.419 ng/mL N 0- 4.0 25 finding [phone] Laboratory test 12/05/2016 [facility] Surgical SEE RESULT 26 finding [phone] Pathology BELOW CBC Auto Diff 08/05/2016 [facility] White Blood 6.5 10^3/uL N 3.5- 10.8 27 [phone] Count Red Blood Count 5.11 10^6/uL N 4.0-5.4 Hemoglobin 15.2 g/dL N 14.0-18.0 Hematocrit 46 % N 42-52 Mean Corpuscular Volume 89 fL N 80-94 Mean Corpuscular Hemoglobin 30 pg N 27-31 Mean Corpuscular HGB Conc 33 g/dL N 31-36 Red Cell Distribution Width 13 % N 10.5-15 Platelet Count 324 10^3/uL N 150-450 Mean Platelet Volume 7 um3 Low 7.4-10.4 Abs Neutrophils 4.2 10^3/uL N 1.5-7.7 Abs Lymphocytes 1.4 10^3/uL N 1.0-4.8 Abs Monocytes 0.6 10^3/uL N 0-0.8 Abs Eosinophils 0.3 10^3/uL N 0-0.6 Abs Basophils 0.1 10^3/uL N 0-0.2 Abs Nucleated RBC 0 10^3/uL N Granulocyte % 63.7 % N 38-83 Lymphocyte % 22.1 % Low 25-47 Monocyte % 8.9 % N 1-9 Eosinophil % 4.1 % N 0-6 Basophil % 1.2 % N 0-2 Nucleated Red Blood Cells % 0 N Basic Metabolic Panel 08/05/2016 [facility] Sodium 137 mmol/L N 133- 145 [phone] Potassium 4.4 mmol/L N 3.5-5.0 Chloride 103 mmol/L N 101-111 Co2 Carbon Dioxide 27 mmol/L N 22-32 Anion Gap 7 mmol/L N 2-11 Glucose 86 mg/dL N 70-100 Blood Urea Nitrogen 17 mg/dL N 6-24 Creatinine 1.22 mg/dL High 0.67-1.17 BUN/Creatinine Ratio 13.9 N 8-20 Calcium 9.1 mg/dL N 8.6-10.3 Egfr Non- 61.7 N >60 Egfr 79.3 N >60 28 Laboratory test 08/05/2016 [facility] TSH (Thyroid 0.31 mcIU/mL Low 0.34-5.60 29 finding [phone] Stim Horm) PSA Screening 1.634 ng/mL N 0-4.000 30 Testosterone Free 08/05/2016 [facility] Free Testosterone 7.90 ng/dL N 3.87-14.7 31 & Total [phone] ng/dl Testosterone 304 ng/dL N 240-950 32 Laboratory test 07/06/2016 [facility] PSA Screening 1.845 N 0-4.000 33 finding [phone] Laboratory test 07/06/2016 [facility] TSH (Thyroid 8.19 High 0.34- 5.60 finding [phone] Stim Horm) mcIU/mL Laboratory test 07/02/2016 [facility] Lactic Acid 1.8 mmol/L N 0.5- 2.0 34 finding [phone] CBC Auto Diff 07/02/2016 [facility] White Blood 9.8 N 3.5-10.8 [phone] Count 10^3/uL Red Blood Count 5.09 10^6/uL N 4.0-5.4 Hemoglobin 15.2 g/dL N 14.0-18.0 Hematocrit 45 % N 42-52 Mean Corpuscular Volume 89 fL N 80-94 Mean Corpuscular Hemoglobin 30 pg N 27-31 Mean Corpuscular HGB Conc 34 g/dL N 31-36 Red Cell Distribution Width 13 % N 10.5-15 Platelet Count 322 10^3/uL N 150-450 Mean Platelet Volume 7 um3 Low 7.4-10.4 Abs Neutrophils 7.7 10^3/uL N 1.5-7.7 Abs Lymphocytes 1.3 10^3/uL N 1.0-4.8 Abs Monocytes 0.7 10^3/uL N 0-0.8 Abs Eosinophils 0.1 10^3/uL N 0-0.6 Abs Basophils 0.1 10^3/uL N 0-0.2 Abs Nucleated RBC 0 10^3/uL N Granulocyte % 78.4 % N 38-83 Lymphocyte % 13.2 % Low 25-47 Monocyte % 6.7 % N 1-9 Eosinophil % 1.0 % N 0-6 Basophil % 0.7 % N 0-2 Nucleated Red Blood Cells % 0 N Comp Metabolic Panel 07/02/2016 [facility] Sodium 137 mmol/L N 133- 145 [phone] Potassium 3.6 mmol/L N 3.5-5.0 Chloride 101 mmol/L N 101-111 Co2 Carbon Dioxide 27 mmol/L N 22-32 Anion Gap 9 mmol/L N 2-11 Glucose 93 mg/dL N 70-100 Blood Urea Nitrogen 16 mg/dL N 6-24 Creatinine 1.28 mg/dL High 0.67-1.17 BUN/Creatinine Ratio 12.5 N 8-20 Calcium 9.3 mg/dL N 8.6-10.3 Total Protein 7.3 g/dL N 6.4-8.9 Albumin 4.3 g/dL N 3.2-5.2 Globulin 3.0 g/dL N 2-4 Albumin/Globulin Ratio 1.4 N 1-3 Total Bilirubin 0.70 mg/dL N 0.2-1.0 Alkaline Phosphatase 47 U/L N 34-104 Alt 33 U/L N 7-52 Ast 31 U/L N 13-39 Egfr Non- 58.3 N >60 Egfr 75.0 N >60 35 Laboratory test finding 07/02/2016 [facility] Lipase 39 U/L N 11.0- 82.0 [phone] Urinalysis Profile 07/02/2016 [facility] Urine Color Straw N [phone] Urine Appearance Clear N Urine Specific [place] 1.005 Low 1.010-1.030 Urine pH 6.0 N 5-9 Urine Urobilinogen Negative N Negative Urine Ketones Negative N Negative Urine Protein Negative N Negative Urine Leukocytes Trace Abnormal Negative Urine Blood 1+ Abnormal Negative Urine Nitrite Negative N Negative Urine Bilirubin Negative N Negative Urine Glucose Negative N Negative Urine White Blood Cell Absent N Absent Urine Red Blood Cell Trace(0-2/hpf) N Absent Urine Bacteria 1+ Abnormal Absent Laboratory test 07/02/2016 [facility] Urine Culture And SEE RESULT 36 finding [phone] Sensitivities BELOW Laboratory test 06/15/2016 [facility] Rapid Strep Negative N Negative 37 finding [phone] Molecular Laboratory test 03/17/2015 [facility] TSH (Thyroid Stim 4.02 ?IU/mL N 0.34-5.60 finding [phone] Horm) PSA Screening 1.624 ng/mL N 0-4.000 38 Testosterone Free 09/11/2014 [facility] Free 8.3 ng/dL Abnormal 9-30 39 & Total [phone] Testosterone ng/dl Testosterone 267 ng/dL N 240-950 40 Laboratory test 09/11/2014 [facility] TSH (Thyroid 0.18 ?IU/mL Low 0.34-5.60 finding [phone] Stim Horm) CBC Auto Diff 06/15/2014 [facility] White Blood 7.8 10^3/uL N 4.8- 10.8 [phone] Count Red Blood Count 5.23 10^6/uL N 4.0-5.4 Hemoglobin 15.4 g/dL N 14.0-18.0 Hematocrit 46 % N 42-52 Mean Corpuscular Volume 87 fL N 80-94 Mean Corpuscular Hemoglobin 30 pg N 27-31 Mean Corpuscular HGB Conc 34 g/dL N 31-36 Red Cell Distribution Width 13 % N 10.5-15 Platelet Count 298 10^3/uL N 150-450 Mean Platelet Volume 8 um3 N 7.4-10.4 Abs Neutrophils 4.8 10^3/uL N 1.5-7.7 Abs Lymphocytes 1.6 10^3/uL N 1.0-4.8 Abs Monocytes 0.9 10^3/uL High 0-0.8 Abs Eosinophils 0.4 10^3/uL N 0-0.6 Abs Basophils 0.1 10^3/uL N 0-0.2 Abs Nucleated RBC 0 10^3/uL N Granulocyte % 61.6 % N 38-83 Lymphocyte % 20.4 % Low 25-47 Monocyte % 11.6 % High 1-9 Eosinophil % 5.7 % N 0-6 Basophil % 0.7 % N 0-2 Nucleated Red Blood Cells % 0 N Comp Metabolic Panel 06/15/2014 [facility] Sodium 133 mmol/L N 133- 145 [phone] Potassium 3.9 mmol/L N 3.5-5.0 Chloride 104 mmol/L N 101-111 Co2 Carbon Dioxide 25 mmol/L N 22-32 Anion Gap 4 mmol/L N 2-11 Glucose 100 mg/dL N 70-100 Blood Urea Nitrogen 19 mg/dL N 6-24 Creatinine 1.21 mg/dL High 0.67-1.17 BUN/Creatinine Ratio 15.7 N 8-20 Calcium 8.6 mg/dL N 8.6-10.3 Total Protein 6.4 g/dL N 6.4-8.9 Albumin 3.8 g/dL N 3.2-5.2 Globulin 2.6 g/dL N 2-4 Albumin/Globulin Ratio 1.5 N 1-3 Total Bilirubin 0.70 mg/dL N 0.2-1.0 Alkaline Phosphatase 49 U/L N 34-104 Alt 28 U/L N 7-52 Ast 24 U/L N 13-39 Egfr Non- 62.7 N >60 Egfr 80.7 N >60 41 Testosterone Free 06/09/2014 [facility] Free Testosterone 24 ng/dL N 9-30 42, 43 & Total [phone] ng/dl Testosterone 957 ng/dL Abnormal 240-950 44 Laboratory test 06/09/2014 [facility] TSH (Thyroid 0.15 IU/mL Low 0.34-5.60 45 finding [phone] Stimulating Horm) Basic Metabolic 06/09/2014 [facility] Sodium 136 mmol/L N 133-145 Panel [phone] Potassium 4.6 mmol/L N 3.5-5.0 Chloride 105 mmol/L N 101-111 Co2 Carbon Dioxide 27 mmol/L N 22-32 Anion Gap 4 mmol/L N 2-11 Glucose 88 mg/dL N 70-100 Blood Urea Nitrogen 23 mg/dL N 6-24 Creatinine 1.15 mg/dL N 0.67-1.17 BUN/Creatinine Ratio 20.0 N 8-20 Calcium 8.8 mg/dL N 8.6-10.3 Egfr Non- 66.5 N >60 Egfr 85.6 N >60 46 Hemoglobin/Hematacrit 03/20/2014 [facility] Hemoglobin 15.6 g/dL N 14.0-18.0 47 [phone] Hematocrit 46 % N 42-52 Lipid Profile (Trig/Chol/HDL) 03/20/2014 [facility] Triglycerides 64 mg /dL N 48 [phone] Cholesterol 163 mg/dL N 49 HDL Cholesterol 40.8 mg/dL N 50 LDL Cholesterol 109 mg/dL N 51 Laboratory test finding 03/20/2014 [facility] Alt 38 U/L N 7-52 52 [phone] TSH (Thyroid Stimulating Horm) 5.36 IU/mL N 0.34-5.60 53 Testosterone Free 03/20/2014 [facility] Free 5.2 ng/dL Abnormal 9-30 54 & Total [phone] Testosterone ng/dl Testosterone 167 ng/dL Abnormal 240-950 55 Basic Metabolic Panel 03/20/2014 [facility] Sodium 138 mmol/L N 133- 145 [phone] Potassium 4.4 mmol/L N 3.5-5.0 Chloride 104 mmol/L N 101-111 Co2 Carbon Dioxide 28 mmol/L N 22-32 Anion Gap 6 mmol/L N 2-11 Glucose 94 mg/dL N 70-100 Blood Urea Nitrogen 20 mg/dL N 6-24 Creatinine 1.36 mg/dL High 0.67-1.17 BUN/Creatinine Ratio 14.7 N 8-20 Calcium 9.2 mg/dL N 8.6-10.3 Egfr Non- 54.8 N >60 Egfr 70.5 N >60 56 CBC Auto Diff 03/11/2014 [facility] White Blood 14.1 10^3/uL High 4.8 -10.8 [phone] Count Red Blood Count 5.13 10^6/uL N 4.0-5.4 Hemoglobin 15.2 g/dL N 14.0-18.0 Hematocrit 46 % N 42-52 Mean Corpuscular Volume 89 fL N 80-94 Mean Corpuscular Hemoglobin 30 pg N 27-31 Mean Corpuscular HGB Conc 33 g/dL N 31-36 Red Cell Distribution Width 14 % N 10.5-15 Platelet Count 303 10^3/uL N 150-450 Mean Platelet Volume 7 um3 Low 7.4-10.4 Abs Neutrophils 11.0 10^3/uL High 1.5-7.7 Abs Lymphocytes 1.4 10^3/uL N 1.0-4.8 Abs Monocytes 1.4 10^3/uL High 0-0.8 Abs Eosinophils 0.2 10^3/uL N 0-0.6 Abs Basophils 0.1 10^3/uL N 0-0.2 Abs Nucleated RBC 0.01 10^3/uL N Granulocyte % 78.0 % N 38-83 Lymphocyte % 9.8 % Low 25-47 Monocyte % 10.2 % High 1-9 Eosinophil % 1.4 % N 0-6 Basophil % 0.6 % N 0-2 Nucleated Red Blood Cells % 0.1 N Inr/Protime 03/11/2014 [facility] Inr 0.95 N 0.85-1.06 [phone] Comp Metabolic Panel 03/11/2014 [facility] Sodium 137 mmol/L N 133- 145 [phone] Potassium 4.0 mmol/L N 3.5-5.0 Chloride 101 mmol/L N 101-111 Co2 Carbon Dioxide 30 mmol/L N 22-32 Anion Gap 6 mmol/L N 2-11 Glucose 100 mg/dL N 70-100 Blood Urea Nitrogen 20 mg/dL N 6-24 Creatinine 1.24 mg/dL High 0.67-1.17 BUN/Creatinine Ratio 16.1 N 8-20 Calcium 9.2 mg/dL N 8.6-10.3 Total Protein 7.1 g/dL N 6.4-8.9 Albumin 4.0 g/dL N 3.2-5.2 Globulin 3.1 g/dL N 2-4 Albumin/Globulin Ratio 1.3 N 1-3 Total Bilirubin 0.60 mg/dL N 0.2-1.0 Alkaline Phosphatase 51 U/L N 34-104 Alt 24 U/L N 7-52 Ast 21 U/L N 13-39 Egfr Non- 61.0 N >60 Egfr 78.4 N >60 57 Laboratory test finding 03/11/2014 [facility] Lipase 24 U/L N 11.0- 82.0 [phone] C Reactive Protein 52.52 mg/L High < 5.00 58 Urinalysis Profile 03/11/2014 [facility] Urine Color Yellow N [phone] Urine Appearance Clear N Urine Specific [place] 1.015 N 1.010-1.030 Urine pH 6.0 N 5-9 Urine Urobilinogen Negative N Negative Urine Ketones Negative N Negative Urine Protein Negative N Negative Urine Leukocytes Negative N Negative Urine Blood 2+ Abnormal Negative Urine Nitrite Negative N Negative Urine Bilirubin Negative N Negative Urine Glucose Negative N Negative Urine White Blood Cell Trace(0-5/hpf) N Absent Urine Red Blood Cell 2+(6-10/hpf) Abnormal Absent Urine Bacteria Absent N Absent Throat-Beta Strept 09/07/2013 [facility] Throat Beta Strep NEGATIVE 59 [phone] Culture Surgical Pathology 07/18/2013 [facility] RUN DATE: [phone] <SEE NOTE> Throat-Beta Strept 06/21/2013 [facility] Throat Beta Strep NEGATIVE 61 [phone] Culture Laboratory test 06/04/2013 [facility] Surgical RUN DATE: finding [phone] Pathology <SEE NOTE> Laboratory test 05/07/2013 [facility] Surgical RUN DATE: finding [phone] Pathology <SEE NOTE> Urine Micro Inhouse 04/17/2013 In House Ua WBC 0-1 Ua RBC 2-3 Ua Casts - Ua Epi - Ua Other - Ua Glucose - Ua Bilirubin - Ua Ketones - Ua Specific [place] 1.010 Ua Blood [place] Tr Ua PH 6.5 Ua Protein - Ua Urobilinogen - Ua Nitrite - Ua Leukocytes - Hemoglobin/Hematacrit 03/05/2013 [facility] Hemoglobin 16.2 g/dL 14.0-18.0 [phone] Hematocrit 46 % 42-52 Lipid Profile 03/05/2013 [facility] Triglycerides 86 mg/dL 40-200 (Trig/Chol/HDL) [phone] Cholesterol 213 mg/dL High Less than 200 HDL Cholesterol 41 mg/dL 40-60 64 Cholesterol/HDL Ratio 5.2 Average High 1-4.44 LDL Cholesterol 154.8 High Less Than 100 65 Laboratory test finding 03/05/2013 [facility] Alt 30 U/L 14-54 [phone] TSH (Thyroid Stimulating Horm) 1.06 miu/mL 0.34-5.60 Testosterone Free 03/05/2013 [facility] Free 7.6 ng/dL Abnormal 9-30 66 & Total [phone] Testosterone ng/dl Testosterone 230 ng/dL Abnormal 240-950 67 Laboratory test 07/31/2012 [facility] TSH (Thyroid 1.79 miu/mL 0.34- 5.60 finding [phone] Stimulating Horm) Hemoglobin/Hemat 07/31/2012 [facility] Hemoglobin 15.2 g/dL 14.0- 18.0 acrit [phone] Hematocrit 45 % 42-52 Lipid Profile 03/22/2012 [facility] Triglycerides 84 mg/dL 40-200 (Trig/Chol/HDL) [address] [employer] [place], [place] [id number] [phone] Cholesterol 215 mg/dL High Less than 200 HDL Cholesterol 42 mg/dL 40-60 68 Cholesterol/HDL Ratio 5.1 Average High 1-4.44 LDL Cholesterol 156.2 mg/dL High Less Than 100 69 Laboratory test 03/22/2012 [facility] Alt 24 U/L 14-54 70 finding [address] [employer] [place], [place] [id number] [phone] Laboratory test 03/22/2012 [facility] TSH (Thyroid 10.97 High 0.34-5.60 71 finding [address] [employer] Stimulating miu/[place] [address] Horm) [phone] Testosterone 03/22/2012 [facility] Free 9.5 9-30 Free & Total [address] [employer] Testosterone ng/[place] [address] ng/dl [phone] Testosterone 297 ng/dL 240-950 72 Laboratory test 02/29/2012 [facility] PSA Diagnostic 0.89 ng/mL 0- 4.0 73 finding [phone] Throat-Beta 02/12/2012 [facility] Throat Beta (SEE NOTE) 74 Strept [phone] Strep Culture Order 01/18/2011 [facility] rapid strep neg screen, inhouse Laboratory test 01/18/2011 In House Culture Throat neg finding Rapid Screen Culture Throat neg Hemoglobin And 10/14/2010 [facility] Hemoglobin 16.2 g/dL 14.0-18.0 Hematocrit [phone] Hematocrit 46 % 42-52 Lipid Profile 10/14/2010 [facility] Triglyceride 78 mg/dL 40-200 (Trig/Chol/HDL) [phone] Cholesterol 219 mg/dL High Less Than 200 75 High Density Lipoprotein 42 mg/dL 40-60 76 Cholesterol/HDL Ratio 5.21 AVERAGE High 1-4.97 Low Density Lipoprotein 161 mg/dL High Less Than 100 77 Laboratory test finding 10/14/2010 [facility] TSH 3.26 MIU/ML 0.34- 5.60 [phone] PSA,Diagnostic 0.48 NG/ML 0-4 78 Alt (SGPT) 25 U/L 17-63 Laboratory test 09/28/2010 [facility] PSA,Diagnostic 0.64 NG/ML 0-4 finding [phone] Laboratory test 07/08/2010 [facility] Clotest NEGATIVE finding [phone] Surgical 07/08/2010 [facility] Surgical Pathology 79 Pathology [phone] --- <SEE NOTE> Lipid Profile 04/03/2010 [facility] Triglyceride 118 mg/dL 40-200 (Trig/Chol/HDL) [phone] Cholesterol 188 mg/dL Less Than 200 80 High Density Lipoprotein 34 mg/dL Low 40-60 81 Cholesterol/HDL Ratio 5.53 AVERAGE High 1-4.97 Low Density Lipoprotein 130 mg/dL High Less Than 100 82 Laboratory test finding 04/03/2010 [facility] TSH 1.93 MIU/ML 0.34- 5.60 [phone] PSA,Diagnostic 0.55 NG/ML 0-4 83 Alt (SGPT) 25 U/L 17-63 Hemoglobin And 04/03/2010 [facility] Hemoglobin 15.9 g/dL 14.0-18.0 Hematocrit [phone] Hematocrit 47 % 42-52 Laboratory test finding 10/20/2009 [facility] TSH 2.88 MIU/ML 0.34- 5.60 [phone] PSA Screening 0.59 NG/ML 0-4 84 Alt (SGPT) 23 U/L 17-63 Lipid Profile 10/20/2009 [facility] Triglyceride 119 mg/dL 40-200 (Trig/Chol/HDL) [phone] Cholesterol 205 mg/dL High Less Than 200 85 High Density Lipoprotein 34 mg/dL Low 40-60 86 Cholesterol/HDL Ratio 6.03 AVERAGE High 1-4.97 Low Density Lipoprotein 147 mg/dL High Less Than 100 87 Hemoglobin And 10/20/2009 [facility] Hemoglobin 15.6 g/dL 14.0-18.0 Hematocrit [phone] Hematocrit 46 % 42-52 Laboratory test 04/14/2009 [facility] Testosterone Total 766.3 ng/dL [phone] finding [phone] TSH 1.96 MIU/ML 0.34-5.60 CBC With Electronic 04/14/2009 [facility] White Blood 8.3 CUMM 4.8- 10.8 Diff [phone] Count Red Cell Count 5.00 CUMM 4.6-6.2 Hemoglobin [...] Eosinophils 0.5 0-0.6 Abs Basophils 0 0-0.2 Laboratory test 01/09/2009 [facility] Testosterone Total 652.8 ng/dL [phone] finding [phone] PSA Screening 0.65 NG/ML 0-4 TSH 5.21 MIU/ML 0.34-5.60 CBC With Electronic 01/09/2009 [facility] White Blood 7.6 CUMM 4.8- 10.8 Diff [phone] Count Red Cell Count 5.00 CUMM 4.6-6.2 Hemoglobin [...] Eosinophils 0.2 0-0.6 Abs Basophils 0.1 0-0.2 Testosterone Free 08/28/2008 [facility] Free Testosterone 18.6 ng/dL - 88 & Total [address] [place], [place] [id number] [phone] Total Testosterone 503 ng/dL 240-950 89 Laboratory test 08/13/2008 [facility] PSA Screening 0.50 NG/ML 0-4 90 finding [phone] Testosterone Free & 07/09/2008 [facility] Free Testosterone 11.6 ng/dL 9-30 91 Total [phone] Total Testosterone 350 ng/dL 240-950 92 Throat-Beta 01/15/2008 [facility] Throat-Beta NF 93 Strep [phone] Strep Culture Rapid Strep A 08/03/2007 [facility] Rapid Strep A [employer] brick sorter 94 [phone] <SEE NOTE> Laboratory test 08/03/2007 [facility] Throat-Beta NGNBS 95 finding [phone] Strep Culture Laboratory test 05/25/2007 [facility] TSH 9.63 MIU/ML High 0.34 96 finding [phone] -5.6 0 PSA Screening 0.50 NG/ML 0-4 97 Lead 05/25/2007 [facility] Lead 6.8 g/dL 0-25.0 98 [phone] Lead Specimen Type VENOUS Laboratory test 05/25/2007 [facility] Glucose 89 mg/dL 70-105 finding [phone] Lipid Profile 05/25/2007 [facility] Cholesterol/HD 5.14 AVERAGE High 1-4.97 (Trig/Chol/HDL) [phone] L Ratio Cholesterol 190 mg/dL Less Than 200 99 Triglyceride 91 mg/dL 40-200 High Density Lipoprotein 37 mg/dL Low 40-60 100 Low Density Lipoprotein 135 mg/dL High Less Than 100 101 Ua Inhouse 05/16/2007 In House Ua Glucose - Ua Bilirubin - Ua Ketones - Ua Specific [place] 1.010 Ua Blood nh tr Ua PH 6.0 Ua Protein - Ua Urobilinogen - Ua Nitrite - Ua Leukocytes - Laboratory test finding 04/10/2006 [facility] TSH 1.27 MIU/ML 0.34- 5.60 [phone] Laboratory test finding 10/14/2005 [facility] TSH 6.21 MIU/ML High 0.34-5.60 [phone] T3 Free 3.05 pg/mL 2.39-6.79 Free Thyroxine 0.64 ng/dL 0.58-1.64 Thyroid 10/14/2005 [facility] Thyroglobulin 15 U/ML < 60 Autoantibodies [phone] Autoantibodies Thyroid Peroxidase Autoab 40 U/ML < 60 102 Lipid Profile 10/14/2005 [facility] Cholesterol/HDL 4.59 1-4.97 (Trig/Chol/HDL) [phone] Ratio AVERAGE Cholesterol 179 mg/dL Less Than 200 103 Triglyceride 75 mg/dL 40-200 High Density Lipoprotein 39 mg/dL Low 40-60 104 Low Density Lipoprotein 125 mg/dL High Less Than 100 105 Iron & Iron Binding 06/16/2005 [facility] Iron Total 47 g/dL 45- 182 Capacity [phone] Unsaturated Iron Binding 201 g/dL Total Iron Binding Capacity 248 g/dL Low 250-450 % Iron Saturation 19 % 15-55 Retic Count 06/16/2005 [facility] Corrected Retic 1.1 % 0.5-1.5 [phone] Hematocrit For Retic Coun 39 % Low 42-52 RBC Retic Count 4.46 CUMM Low 4.6-6.2 Reticulocyte Count 1.28 % 0.5-1.5 Immature Retic Fraction 0.35 Mean Retic Volume 97.4 Retic Index 0.7 CBC With Manual Diff 06/16/2005 [facility] RBC Morphology NORMAL [phone] White Blood Count 6.5 CUMM 4.8-10.8 Hematocrit [...] 13 % 0-13 Laboratory test finding 06/16/2005 [facility] Ferritin 85 NG/ML 24- 336 [phone] Folic Acid > 20.0 NG/ML High 2.2-18.3 Vitamin B12 522 pg/mL 180-914 TSH 0.05 MIU/ML Low 0.34-5.60 Lipid Profile 05/17/2005 [facility] Cholesterol 138 mg/dL Less Than 106 (Trig/Chol/HDL) [phone] 200 Triglyceride 98 mg/dL 40-200 High Density Lipoprotein 33 mg/dL Low 40-60 107 Low Density Lipoprotein 85 mg/dL Less Than 100 108 Cholesterol/HDL Ratio 4.18 AVERAGE 1-4.97 Comp Metabolic Panel 05/17/2005 [facility] One Over Creatinine 0.90 [phone] Anion Gap 7.0 mmol/L 2-11 109 Albumin/Globulin Ratio 1.5 1-3 Albumin 3.8 GM/DL [...] 8-20 Creatinine 1.1 mg/dL 0.5-1.4 Laboratory test 05/17/2005 [facility] TSH 2.68 MIU/ML 0.34-5.60 finding [phone] CBC With Manual 05/17/2005 [facility] RBC Morphology NORMAL Diff [phone] White Blood Count 7.1 CUMM 4.8-10.8 Hematocrit [...] 24 % 5-47 Monocyte 8 % 0-13 Laboratory test 05/17/2005 [facility] PSA Screening 0.4 NG/ML 0-4 110 finding [phone] Lipid Panel 03/01/2004 [facility]. Cholesterol Total 197 LABORATORY [phone] Cholesterol/HDL Ratio 4.69 High Density Lipoprotein 42 LDL Low Density Lipoprotein LDL calculated 142 Triglycerides 66 CMP Panel 03/01/2004 [facility]. Albumin 4.0 LABORATORY [phone] Alt - SGPT 33 Calcium 9.3 Carbon Dioxide 30.0 Chloride 102 Creatinine 1.0 Glucose Serum 88 Alkaline Phosphatase 64 Potassium 4.3 Protien Total 6.7 Sodium 137 Ast - Sgot 29 BUN - Urea Nitrogen 12 Laboratory test finding 03/01/2004 [facility]. PSA Total 0.5 LABORATORY [phone] 1 Because ethnic data is not always readily [...] 15-29 5 Kidney failure <15 (or dialysis) 2 Please check labs and xrays today 3 Please check labs and xrays today 4 Please check labs and xrays today 5 Please check labs and xrays today 6 ADDITIONAL INFORMATION This test was developed and its performance characteristics determined by [facility] in a manner consistent with CLIA requirements. This test has not been cleared or approved by the U.S. Food and Drug Administration. Test Performed by: [facility] - [address] [address] 7 REFERENCE VALUE <1.0 (Negative) 8 REFERENCE VALUE <1.0 (Negative) 9 REFERENCE VALUE <1.0 (Negative) 10 REFERENCE VALUE <1.0 (Negative) 11 REFERENCE VALUE <1.0 (Negative) 12 REFERENCE VALUE <1.0 (Negative) Test Performed by: [facility] - [address] [address] 13 Interpretation: Borderline (30.0-75.0) REFERENCE VALUE <30.0 (Negative) Test Performed by: [facility] - [address] [address] 14 REFERENCE VALUE Not Applicable 15 HLA-B27 antigen was detected. Approximately 8% of the normal population carries the HLA-B27 antigen. HLA-B27 is present in approximately 89% of patients with ankylosing spondylitis, 79% of patients with Kristi's syndrome and 42% of patients with juvenile rheumatoid arthritis. However, lacking other data, it is not diagnostic for these disorders. This test does not differentiate B27 alleles. i.e. B*27:05, B*27:06, etc. ADDITIONAL INFORMATION Method: Flow Cytometry Performing Laboratory CLIA# [id number] Test Performed by: [facility] - [address] [address] 16 ADDITIONAL INFORMATION Testing performed by [facility]. This test was developed and its performance characteristics determined by [facility] in a manner consistent with CLIA requirements. This test has not been cleared or approved by the U.S. Food and Drug Administration. 17 ADDITIONAL INFORMATION Testing performed by Liquid Chromatography-Tandem Mass Spectrometry (LC-MS/MS). This test was developed and its performance characteristics determined by [facility] in a manner consistent with CLIA requirements. This test has not been cleared or approved by the U.S. Food and Drug Administration. Test Performed by: [facility] - [facility] [address] [place] [address] 18 Serum levels of PSA measured using the [employer] [place] DXI Hybritech immunoassay should not be interpreted as absolute evidence of the presence or absence of disease. The PSA value should be used in conjunction with other pertinent clinical diagnostic procedures. The values obtained with different assay methods or kits cannot be used interchangeably. 19 Forensic Social Worker: [id number] 20 Forensic Social Worker: [id number] 21 On [facility] Lab site, there are no results for the Testosterone testing. SL 22 Because ethnic data is not always readily [...] 15-29 5 Kidney failure <15 (or dialysis) 23 Acute inflammation: >10.00 24 [facility] Severe Sepsis and Septic Shock Management Bundle Measure requires all lactic acids initially measuring >2.0 mmol/L be repeated. 25 Serum levels of PSA measured using the [employer] [place] DXI Hybritech immunoassay should not be interpreted as absolute evidence of the presence or absence of disease. The PSA value should be used in conjunction with other pertinent clinical diagnostic procedures. The values obtained with different assay methods or kits cannot be used interchangeably. 26 SEE RESULT BELOW Name: ADELE PENDLETON : [address]: Dain Jesus MD Acct: [id number] Unit: [id number] AGE: 55 Location: ENDO Re12/05/16 SEX: M Status: DEP REF SPEC: [id number] PARISH: 12/05/[address] [facility] [address]: Dain Jesus MD REQ: [id number] RECD: 12/05/16 STATUS: SRINIVSA PHILLIPS DR: Vu Bell MD _ ORDERED: [...] performed at Main Lab DEPARTMENT OF PATHOLOGY, [address] [place] [address] Shyam Villa M.D. Director [facility] # [id number] RUN DATE: 12/06/16 [facility] LAB LIVE PAGE 2 Patient: ADELE PENDLETON [id number] (Continued) GROSS DESCRIPTION (Continued) GROSS DESCRIPTION (Continued) within the container. Entirely submitted, one cassette. Signed (signature on file) Khushbu Hastings MD 1111 END OF REPORT * ML=Testing performed at Main Lab DEPARTMENT OF PATHOLOGY, [address] [place] [address] Shyam Villa M.D. Director [facility] # [id number] 27 this should be done right before you are due for a dose oftestosterone 28 Because ethnic data is not always readily [...] 15-29 5 Kidney failure <15 (or dialysis) 29 this should be done right before you are due for a dose oftestosterone 30 Serum levels of PSA measured using the [employer] [place] DXI Hybritech immunoassay should not be interpreted as absolute evidence of the presence or absence of disease. The PSA value should be used in conjunction with other pertinent clinical diagnostic procedures. The values obtained with different assay methods or kits cannot be used interchangeably. 31 ADDITIONAL INFORMATION Testing performed by [facility]. This test was developed and its performance characteristics determined by [facility] in a manner consistent with CLIA requirements. This test has not been cleared or approved by the U.S. Food and Drug Administration. 32 ADDITIONAL INFORMATION Testing performed by Liquid Chromatography-Tandem Mass Spectrometry (LC-MS/MS). This test was developed and its performance characteristics determined by [facility] in a manner consistent with CLIA requirements. This test has not been cleared or approved by the U.S. Food and Drug Administration. Test Performed by: [address] [address] 33 Serum levels of PSA measured using the [employer] [place] DXI Hybritech immunoassay should not be interpreted as absolute evidence of the presence or absence of disease. The PSA value should be used in conjunction with other pertinent clinical diagnostic procedures. The values obtained with different assay methods or kits cannot be used interchangeably. 34 [facility] Severe Sepsis and Septic Shock Management Bundle Measure requires all lactic acids initially measuring >2.0 mmol/L be repeated. 35 Because ethnic data is not always [...] 5 Kidney failure <15 (or dialysis) 36 SEE RESULT BELOW Name: ADELE PENDLETON : [address]: Hugo Heath MD Acct: [id number] Unit: [id number] AGE: 55 Location: ED Re07/02/16 SEX: M Status: DEP ER SPEC: [id number] PARISH: 07/02/[address]: Hugo Heath MD REQ: [id number] RECD: 07/02/16 STATUS: GIORGI PHILLIPS DR: Vu Bell MD _ SOURCE: URINE SPDESC: ORDERED: Urine Culture Procedure Result Reported Site Urine Culture Final 07/03/16- 1603 ML No Growth (<1,000 CFU/mL) * ML - MAIN LAB ([facility]) . END OF REPORT * ML=Testing performed at Main Lab DEPARTMENT OF PATHOLOGY, [address] [place] [address] Shyam Villa M.D. Director [facility] # [id number] Forensic Social Worker: [id number] 38 Serum levels of PSA measured using the [employer] [place] DXI Hybritech immunoassay should not be interpreted as absolute evidence of the presence or absence of disease. The PSA value should be used in conjunction with other pertinent clinical diagnostic procedures. The values obtained with different assay methods or kits cannot be used interchangeably. 39 ADDITIONAL INFORMATION Testing performed by [facility]. 40 ADDITIONAL INFORMATION Testing performed by Liquid Chromatography-Tandem Mass Spectrometry (LC-MS/MS). Test Performed by: [place] [address] Benefits Consultant: Maverick Mcclellan II, M.D., Ph.D. 41 Because ethnic data is not always readily [...] 15-29 5 Kidney failure <15 (or dialysis) 42 No fasting needed, but must be drawn residential program worker 43 ADDITIONAL INFORMATION Testing performed by [facility]. 44 ADDITIONAL INFORMATION Testing performed by Liquid Chromatography-Tandem Mass Spectrometry (LC-MS/MS). Test Performed by: [facility] [place] [address] Benefits Consultant: Maverick Mcclellan II, M.D., Ph.D. 45 No fasting needed, but must be drawn residential program worker 46 Because ethnic data is not always readily [...] 15-29 5 Kidney failure <15 (or dialysis) 47 PT IS FASTING 48 Desirable <150 Borderline high 150-199 High 200-499 Very High >500 49 Desirable <200 Borderline high 200-239 High >239 50 Low <40 Desirable: 40-60 High: >60 51 Desirable <100 Near Optimal 100-129 Borderline high 130-159 High 160-189 Very High >189 52 PT IS FASTING 53 PT IS FASTING 54 ADDITIONAL INFORMATION Testing performed by [facility]. 55 ADDITIONAL INFORMATION Testing performed by Liquid Chromatography-Tandem Mass Spectrometry (LC-MS/MS). Test Performed by: [facility] - [address] [address] Benefits Consultant: González Parrish M.D. 56 Because ethnic data is not always readily [...] 15-29 5 Kidney failure <15 (or dialysis) 57 Because ethnic data is not always readily [...] 15-29 5 Kidney failure <15 (or dialysis) 58 Acute inflammation: >10.00 59 RUN DATE: 09/10/13 [facility] LAB LIVE PAGE 1 RUN TIME: [address] [place] [address] Specimen Inquiry Name: ADELE PENDLETON : [address]: Bobby Kendrick MD Acct: [id number] Unit: [id number] AGE: 52 Location: [facility] Re09/07/13 SEX: M Status: DEP ER SPEC: [id number] PARISH: 09/07/13 [facility] [address]: Bobby Kendrick MD REQ: [id number] RECD: 09/08/13-1308 STATUS: GIORGI PHILLIPS DR: [facility] Vu Bell MD _ SOURCE: THROAT SPDESC: ORDERED: Throat Beta Str Procedure Result Verified Site Throat Beta Strep Culture Final 09/10/13- 924 ML Negative For Group A Beta Streptococcus END OF REPORT * ML=Testing performed at Main Lab DEPARTMENT OF PATHOLOGY, [facility] [employer], [place] [address] hSyam Villa M.D. Director [facility] # [id number] 60 RUN DATE: 07/23/13 [facility] LAB LIVE PAGE 1 RUN TIME: [address] [facility] [employer] [place], [place] [address] Specimen Inquiry Name: ADELE PENDLETON : [address]: Marcel Vaughn MD Acct: [id number] Unit: [id number] AGE: 52 Location: [facility] Re07/18/13 SEX: M Status: REG [facility] SPEC: [id number] PARISH: 07/18/13- SUBM DR: Marcel Vaughn MD REQ: [id number] RECD: 07/19/13 STATUS: SRINIVAS PHILLIPS DR: Vu Bell MD [...] Right Posterior Shoulder Suture Twelve O'clock Superior Olga Margin and consists of a 7.8 x [...] performed at Main Lab DEPARTMENT OF PATHOLOGY, [facility] [place], [place] [address] Shyam Villa M.D. Director [facility] # [id number] 61 RUN DATE: 06/24/13 [facility] LAB LIVE PAGE 1 RUN TIME: [address] [facility] [employer] [place], [place] [address] Specimen Inquiry Name: ADELE PENDLETON : [address]: Isa Barahona MD Acct: [id number] Unit: [id number] AGE: 52 Location: [facility] Re06/21/13 SEX: M Status: DEP ER SPEC: [id number] PARISH: 06/21/13-[address] [facility] [address]: Mariah GUPTA REQ: [id number] RECD: 06/22/13 STATUS: GIORGI PHILLIPS DR: Isa Barahona MD, MD _ SOURCE: THROAT SPDESC: ORDERED: Throat Beta Str Procedure Result Verified Site Throat Beta Strep Culture Final 06/24/13- 0813 ML Negative For Group A Beta Streptococcus END OF REPORT * ML=Testing performed at Main Lab DEPARTMENT OF PATHOLOGY, [facility] [place], [place] [address] Shyam Villa M.D. Director [facility] Permit #[id number] 62 RUN DATE: 06/07/13 [facility] LAB LIVE PAGE 1 RUN TIME: [address] [facility] [employer] [place], [place] [address] Specimen Inquiry Name: ADELE PENDLETON : [address]: Vu Bell MD Acct: [id number] Unit: [id number] AGE: 52 Location: [facility] Re06/04/13 SEX: M Status: REG REF SPEC: [id number] PARISH: 06/04/13-[address] [facility] [address]: Vu Bell MD REQ: [id number] RECD: 06/04/13-1832 STATUS: SOUT _ ORDERED: MELAN-A STAIN, LEVEL [...] lesion, compatible with the previous biopsy site ([id number] #2). The prior biopsy was reviewed in [...] performed at Main Lab DEPARTMENT OF PATHOLOGY, [facility] [place], [place] [address] Shyam Villa M.D. Director [facility] Permit #[id number] RUN DATE: 06/07/13 [facility] LAB LIVE PAGE 2 RUN TIME: [address] [facility] [employer] [place], [place] [address] Specimen Inquiry Patient: ADELE PENDLETON Luisa [id number] (Continued) SPECIMEN COMMENTS (Continued) CLINICAL HISTORY An [...] specimen is received in formalin labeled Adele MoranPorsche Nathjenni, Back/Right Shoulder and consists of a 2.7 [...] performed at Main Lab DEPARTMENT OF PATHOLOGY, [address] [place] [address] Shyam Villa M.D. Director [facility] #[id number] 63 RUN DATE: 05/09/13 [facility] LAB LIVE PAGE 1 RUN TIME: [address], [place], [place] [address] Specimen Inquiry Name: ADELE PENDLETON : [address]: Vu Bell MD Acct: [id number] Unit: [id number] AGE: 52 Location: [facility] Re05/07/13 SEX: M Status: REG REF SPEC: [id number] PARISH: 05/07/13-1529 [facility] [address]: Vu Bell MD REQ: [id number] RECD: 05/07/13-183 STATUS: SOUT _ ORDERED: LEVEL IV/2 FINAL [...] performed at Main Lab DEPARTMENT OF PATHOLOGY, [facility] [place] [address] Shyam Villa M.D. Director [facility] Permit #[id number] RUN DATE: 05/09/13 [facility] LAB LIVE PAGE 2 RUN TIME: [address] [place] [address] Specimen Inquiry Patient: ADELE PENDLETON [id number] (Continued) POST-OPERATIVE DIAGNOSIS (Continued) POST-OPERATIVE DIAGNOSIS 238.2 [...] performed at Main Lab DEPARTMENT OF PATHOLOGY, [address] [place] [address] Shyam Villa M.D. Director [facility] Permit #[id number] 64 HDL Interpretation: Undesirable: High Risk: Less than 40 mg/dL Desirable: Low Risk: Greater than 60 mg/dL 65 LDL Interpretation: Low Risk Optimal Level: LDL Less than 100 mg/dL Near or Above Optimal: LDL 100-129 mg/dL Borderline High Risk: LDL 130-159 mg/dL High Risk: LDL 160-189 mg/dL Very High Risk: LDL Greater than 189 mg/dL 66 Testing performed by [facility]. 67 Testing performed by Liquid Chromatography-Tandem Mass Spectrometry (LC-MS/MS). Test Performed by: [address] [address] Benefits Consultant: Steve Rodriguez III, M.D. 68 HDL Interpretation: Undesirable: High Risk: Less than 40 MG/DL Desirable: Low Risk: Greater than 60 MG/DL 69 LDL Interpretation: Low Risk Optimal Level: LDL Less than 100 MG/DL Near or Above Optimal: LDL 100-129 MG/DL Borderline High Risk: LDL 130-159 MG/DL High Risk: LDL 160-189 MG/DL Very High Risk: LDL Greater than 189 MG/DL 70 PT IS FASTING 71 PT IS FASTING 72 Test Performed by: [address] [address] Benefits Consultant: Steve Rodriguez III, M.D. 73 Serum levels of PSA measured using the [employer] [place] DXI Hybritech immunoassay should not be interpreted as absolute evidence of the presence or absence of disease. The PSA value should be used in conjunction with other pertinent clinical diagnostic procedures. The values obtained with different assay methods or kits cannot be used interchangeably. 74 RUN DATE: 02/14/12 [facility] LAB LIVE PAGE 1 RUN TIME: [address] [place] [address] Specimen Inquiry Name: CRISTOFERADELE : [address]: Twan Schmidt MD Acct: [id number] Unit: [id number] AGE: 51 Location: [facility] Re02/12/12 SEX: M Status: DEP ER SPEC: [id number] PARISH: 02/12/12 [facility] [address]: Twan Schmidt MD REQ: [id number] RECD: 02/12/12 STATUS: GIORGI PHILLIPS DR: Ray CARRILLO,Vu Zaman SOURCE: THROAT SPDESC: ORDERED: Throat Beta Str Procedure Result Verified Site Throat Beta Strep Culture Final 02/14/12- 08 ML Negative For Group A Beta Streptococcus END OF REPORT * ML=Testing performed at Main Lab DEPARTMENT OF PATHOLOGY, [address] [place] [address] Shyam Villa M.D. Director [facility] Permit #[id number] 75 CHOLESTEROL INTERPRETATION: Desirable: Less than 200 MG/DL Borderline-High Risk: 200-239 MG/DL High-Risk: 240 MG/DL and over 76 HDL INTERPRETATION: Undesirable: High Risk: Less than 40 MG/DL Desirable: Low Risk: Greater than 60 MG/DL 77 LDL INTERPRETATION: Low Risk Optimal Level: LDL Less than 100 MG/DL Near or Above Optimal: LDL 100-129 MG/DL Borderline High Risk: LDL 130-159 MG/DL High Risk: LDL 160-189 MG/DL Very High Risk: LDL Greater than 189 MG/DL 78 * SERUM LEVELS OF PSA MEASURED USING [...] indicator of recurrent or residual disease. . 79 ---- RUN DATE: 07/09/10 [facility] NMI LIVE PAGE 1 RUN TIME: 1212 Specimen Inquiry RUN USER: INTERFACE -- [id number] Status: REG REF Re07/08/10 Age/Sex: 49/M Unit#: [id number] Location: [facility]. : 60 -- Specimen: [id number] Spec Date: 07/08/[address]: Dain hanson MD Spec Type: SURGICAL P Received: 07/08/10-1243 Copies to: Vu Bell MD SPECIMEN 1) ESOPHAGEAL BIOPSIES 2) BIOPSY PROCTITIS HISTORY POST-OP DIAGNOSIS: Colonoscopy to cecum. Erosive esophagitis. Mild gastri tis. Proctitis. CLINICAL INFORMATION: Dysphagia. Rectal bleeding. GROSS DESCRIPTION 1) The specimen is received in formalin labelled Adele Pendleton, Esophageal Biopsies, and consists of several fragments of white tissue measuring in aggregate 0.5 x 0.3 x 0.2 cm. Submitted entirely, one cassette labelled 1. 2) The specimen is received in formalin labelled Adele Pendleton, Biopsy Proctitis, and consists of two [...] 07/09/10 1212 -- -- DEPARTMENT OF PATHOLOGY, [address] [place] [address] [facility] Permit #[id number] Shyam Villa M.D. Director Luis Felipe Salvador M.D. Area Supervisor Dir weberor -- 80 CHOLESTEROL INTERPRETATION: Desirable: Less than 200 MG/DL Borderline-High Risk: 200-239 MG/DL High-Risk: 240 MG/DL and over 81 HDL INTERPRETATION: Undesirable: High Risk: Less than 40 MG/DL Desirable: Low Risk: Greater than 60 MG/DL 82 LDL INTERPRETATION: Low Risk Optimal Level: LDL Less than 100 MG/DL Near or Above Optimal: LDL 100-129 MG/DL Borderline High Risk: LDL 130-159 MG/DL High Risk: LDL 160-189 MG/DL Very High Risk: LDL Greater than 189 MG/DL 83 * SERUM LEVELS OF PSA MEASURED USING THE KENZIE [employer] ACCESS HYBRITECH IMMUNOASSAY SHOULD NOT BE INTERPRETED ABSOLUTE EVIDENCE OF THE PRESENCE OR ABSENCE OF DISEASE. THE PSA VALUE SHOULD BE USED IN CONJUNCTION WITH OTHER PERTINENT CLINICAL DIAGNOSTIC PROCEDURES. A PSA value in the range of 0.1 to 0.6 ng/ml is indeterminate if being used as an indicator of recurrent or residual disease. . 84 * SERUM LEVELS OF PSA MEASURED USING THE KENZIE [employer] ACCESS HYBRITECH IMMUNOASSAY SHOULD NOT BE INTERPRETED ABSOLUTE EVIDENCE OF THE PRESENCE OR ABSENCE OF DISEASE. THE PSA VALUE SHOULD BE USED IN CONJUNCTION WITH OTHER PERTINENT CLINICAL DIAGNOSTIC PROCEDURES. A PSA value in the range of 0.1 to 0.6 ng/ml is indeterminate if being used as an indicator of recurrent or residual disease. . 85 CHOLESTEROL INTERPRETATION: Desirable: Less than 200 MG/DL Borderline-High Risk: 200-239 MG/DL High-Risk: 240 MG/DL and over 86 HDL INTERPRETATION: Undesirable: High Risk: Less than 40 MG/DL Desirable: Low Risk: Greater than 60 MG/DL 87 LDL INTERPRETATION: Low Risk Optimal Level: LDL Less than 100 MG/DL Near or Above Optimal: LDL 100-129 MG/DL Borderline High Risk: LDL 130-159 MG/DL High Risk: LDL 160-189 MG/DL Very High Risk: LDL Greater than 189 MG/DL 88 Test Performed by: [facility] Pathology [address] [place] [address] Benefits Consultant: Steve Rodriguez III, M.D. 89 Test Performed by: [facility] [address] [place] [address] Benefits Consultant: Steve Rodriguez III, M.D. 90 * SERUM LEVELS OF PSA MEASURED USING THE KENZIE [employer] ACCESS HYBRITECH IMMUNOASSAY SHOULD NOT BE INTERPRETED ABSOLUTE EVIDENCE OF THE PRESENCE OR ABSENCE OF DISEASE. THE PSA VALUE SHOULD BE USED IN CONJUNCTION WITH OTHER PERTINENT CLINICAL DIAGNOSTIC PROCEDURES. A PSA value in the range of 0.1 to 0.6 ng/ml is indeterminate if being used as an indicator of recurrent or residual disease. . 91 Test Performed by: [facility] [address] [place] [address] Benefits Consultant: Steve Rodriguez III, M.D. 92 Test Performed by: [facility] [address] [place] [address] Benefits Consultant: Steve Rodriguez III, M.D. 93 NEGATIVE FOR GROUP A BETA STREPTOCOCCUS 94 The brick sorter and regulatory agencies both recommend that a throat culture for beta strep be performed if a Rapid Group A Strep assay yields a negative result. Therefore a culture will be automatically performed on all negative samples. N^NEGATIVE FOR GROUP A STREP BY ENZYME IMMUNOASSAY^STREPA 95 NEGATIVE FOR GROUP A STREP 96 FASTING 97 * SERUM LEVELS OF PSA MEASURED USING THE [employer] ACCESS HYBRITECH IMMUNOASSAY SHOULD NOT BE INTERPRETED ABSOLUTE EVIDENCE OF THE PRESENCE OR ABSENCE OF DISEASE. THE PSA VALUE SHOULD BE USED IN CONJUNCTION WITH OTHER PERTINENT CLINICAL DIAGNOSTIC PROCEDURES. A PSA value in the range of 0.1 to 0.6 ng/ml is indeterminate if being used as an indicator of recurrent or residual disease. . 98 REFERENCE RANGE FOR CHILDREN LESS THAN 6 [...] FOR BLOOD LEAD. TESTING WAS PERFORMED BY [facility] WHICH IS LICENSED BY [facility] TO PERFORM BLOOD LEAD TESTING. THIS CERTIFICATE IS PROVIDED A SERVICE TO OUR CLIENTS AND THEIR PATIENTS WHO MAY BE REQUIRED TO PRODUCE DOCUMENTATION OF BLOOD LEAD TESTING. . 99 Classification: Desirable . 100 Classification: Low . 101 CALCULATED LDL APPROXIMATES THE VALUE OF A DIRECT LDL MEASUREMENT. Classification: Borderline High . 102 TEST PERFORMED BY: [employer] [id number] [place] [address] 103 Classification: Desirable . 104 Classification: Low . 105 CALCULATED LDL APPROXIMATES THE VALUE OF A DIRECT LDL MEASUREMENT. Classification: Near or above optimal . 106 Classification: Desirable . 107 Classification: Low . 108 CALCULATED LDL APPROXIMATES THE VALUE OF A DIRECT LDL MEASUREMENT. Classification: Optimal Level . 109 Anion gap measurement may be of limited value in the presence of any alkalosis, especially in a combined acid base disorder. . 110 * SERUM LEVELS OF PSA MEASURED USING THE [employer] ACCESS HYBRITECH IMMUNOASSAY SHOULD NOT BE INTERPRETED ABSOLUTE EVIDENCE OF THE PRESENCE OR ABSENCE OF DISEASE. THE PSA VALUE SHOULD BE USED IN CONJUNCTION WITH OTHER PERTINENT CLINICAL DIAGNOSTIC PROCEDURES. A PSA value in the range of 0.1 to 0.6 ng/ml is indeterminate if being used as an indicator of recurrent or residual disease. . Procedures Date Code Description Status 12/05/2016 38449674 Colonoscopy Completed 03/20/2015 52423 Electrocardiogram Complete Completed 06/04/2013 01892 Excise Malig Lesion 2.1-3CM Trunk/Arm/Leg Completed 05/07/2013 91582 Biopsy Skin Lesion Each Addtl Completed 05/07/2013 75467 Biopsy Skin Lesion Single Completed 04/17/2013 05721 Electrocardiogram Complete Completed 02/12/2013 91532 Omt 3 To 4 Body Regions Involved Completed 02/05/2013 71522 Omt 3 To 4 Body Regions Involved Completed 02/05/2013 24238 SC/Im Injections Completed 11/13/2008 86873 Tympanometry Completed 11/13/2008 47857 Pure Tone, Threshold Completed 11/13/2008 68112 Remove Impact Cerumen Requiring Instrument, Unilateral Completed 12/09/2005 56933 Inject/Drain Joint/Bursa Major Completed Encounters Type Date Location Provider Dx Diagnosis Office Visit 02/28/2018 Main Office Vu Bell, Denis.9 Hypothyroidism, 11:00a M.DPorsche unspecified E29.1 Testicular hypofunction I10 Essential (primary) hypertension M25.512 Pain in left shoulder 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 unspecified E29.1 Testicular hypofunction I10 Essential (primary) hypertension M25.511 Pain in right shoulder M25.512 Pain in left shoulder Z23 Encounter for immunization M25.562 Pain in left knee M25.561 Pain in right knee Office Visit 04/24/2017 3:45p Main Office Redd Bell Howard, M.D. unspecified E29.1 Testicular hypofunction I10 Essential (primary) hypertension M25.511 Pain in right shoulder M25.512 Pain in left shoulder M25.562 Pain in left knee M25.561 Pain in right knee Z79.899 Other rodent exterminator (current) drug therapy Office Visit 07/06/2016 11:00a Main Office Vu Bell, R10.32 Left lower M.D. quadrant pain R10.30 Lower abdominal pain, unspecified R53.83 Other fatigue E03.9 Hypothyroidism, unspecified E29.1 Testicular hypofunction Office Visit 03/20/2015 8:55a Main Office Ray E03.9 HypothyroidismVu M.D. 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 Unspec 401.1 Hypertension Benign 257.8 Testicular Dysfunction Other 789.32 Swelling Mass Or Lump Abdominal/Pelvic LT Upper Quadrant Office Visit 06/17/2014 2:15p Main Office Ray 244.9 Hypothyroidism Aurelio Womcak M.D. 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 Esophagitis 787.24 Dysphagia, Pharyngoesophageal Phase 401.1 Hypertension Benign 257.8 Testicular Dysfunction Other 724.2 Lumbago Office Visit 09/04/2013 8:30a Main Office Vu Bell, 401.1 Hypertension Benign M.D. Office Visit 06/04/2013 2:00p Main Office Vu Bell, 530.13 Eosinophilic M.D. Esophagitis 238.2 Neoplasm Uncertain Skin 257.8 Testicular Dysfunction Other 172.6 Malignant Melanoma Upper Limb Incl Shoulder Office Visit 05/07/2013 2:00p Main Office Vu Bell, 238.2 Neoplasm Uncertain M.D. Skin 401.1 Hypertension Benign 257.8 Testicular Dysfunction Other Office Visit 04/17/2013 9:45a Main Office Vu Bell, V70.0 Examination General M.D. 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 724.2 Lumbago 729.1 Myalgia & Myositis Unspec 739.3 Lesion Nonallopathic Lumbar Region Not Elsewhere Class 739.4 Lesion Nonallopathic Sacral Region Not Elsewhere Class 739.5 Lesion Nonallopathic Pelvic Region Not Elsewhere Class 401.1 Hypertension Benign V68.1 Prescriptions Repeat Issue Office Visit 02/05/2013 9:30a Main Office Omid Hood D.O. 724.2 Lumbago 729.1 Myalgia & Myositis Unspec 739.3 Lesion Nonallopathic Lumbar Region Not Elsewhere Class 739.4 Lesion Nonallopathic Sacral Region Not Elsewhere Class 739.5 Lesion Nonallopathic Pelvic Region Not Elsewhere Class 739.6 Lesion Nonallopathic Lower Extremity Not Elsewhere Class V68.1 Prescriptions Repeat Issue E927.0 Overexertion From Sudden Strenous Movement 244.9 Hypothyroidism Other Unspec Office Visit 04/06/2012 10:30a Main Office Vu Bell, V70.0 Examination General M.D. 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 786.2 Cough Office Visit 10/19/2010 4:30p Main Office Ray 244.9 Hypothyroidism Aurelio Womack M.D. 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 Fatigue Other 607.84 Impotence [employer] Origin 244.9 Hypothyroidism Other Unspec 719.41 Pain Joint Shoulder Region 724.2 Lumbago Office Visit 11/20/2008 3:30p Main Office Nurse's 607.84 Impotence Organic Schedule Origin Office Visit 11/13/2008 5:00p Main Office Maverick Thacker 385.00 Tympanesclerosis Melanie Mejia Unspec Involvement 382.9 Otitis Media Unspec 389.10 Hearing Loss Sensorineural Unspec 388.70 Otalgia & Earache Unspec Office Visit 11/04/2008 4:15p Main Office Vu Bell 780.79 Malaise And M.D. Fatigue Other 607.84 Impotence Organic Origin 244.9 Hypothyroidism Other Unspec 382.9 Otitis Media Unspec Office Visit 08/13/2008 9:30a Main Office Silcoff, Vu, 796.2 Blood Pressure M.D. Reading Elevated W/O Hypertension 443.0 Raynauds Syndrome 607.84 Impotence Organic Origin 788.43 Nocturia Office Visit 07/04/2008 4:30p Main Office Vu Bell, 443.0 Raynauds Syndrome M.D. 796.2 Blood Pressure Reading Elevated W/O Hypertension 788.43 Nocturia 607.84 Impotence Organic Origin Office Visit 04/04/2008 3:30p Main Office Vu Bell, 443.0 Raynauds Syndrome M.D. 244.9 Hypothyroidism Other Unspec 796.2 Blood Pressure Reading Elevated W/O Hypertension 780.52 Insomnia Unspecified 788.43 Nocturia Office Visit 02/13/2008 4:15p Main Office Vu Bell, 443.0 Raynauds Syndrome M.D. 796.2 Blood Pressure Reading Elevated W/O Hypertension 244.9 Hypothyroidism Other Unspec 780.52 Insomnia Unspecified 607.84 Impotence Organic Origin Office Visit 09/11/2007 1:15p Main Office Vu Bell M.D. 724.2 Lumbago 724.2 Lumbago Office Visit 08/29/2007 1:15p Main Office Vu Bell M.D. 724.2 Lumbago 724.2 Lumbago Office Visit 05/16/2007 9:45a Main Office Ray 244.9 Hypothyroidism Aurelio Womack M.D. 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 v06.1 Jpmyzidxnx-Eailteq-Jvafnwby Combined (DTaP) v07.2 Prophylactic Immunotherapy Office Visit 01/04/2006 12:55p Main Office gurinder 719.41 Pain Joint Shoulder Region Office Visit 12/05/2005 8:30a Main Office gurinder 719.41 Pain Joint Shoulder Region 285.9 Anemia Unspec 244.9 Hypothyroidism Other Unspec 780.55 Disruption Of 24 Hour Sleep Wake Cycle Unspecified 257.8 Testicular Dysfunction Other Office Visit 06/16/2005 1:45p Main Office klepack 285.9 Anemia Unspec 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 Office Visit 05/17/2005 10:45a Main Office klepack 719.41 Pain Joint Shoulder Region 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 780.55 Disruption Of 24 Hour Sleep Wake Cycle Unspecified 257.8 Testicular Dysfunction Other 602.9 Prostate Disorder Unspec V70.0 Examination General Medical Routine AT Health Care Facility Office Visit 08/11/2004 1:45p Main Office klepack 719.41 Pain Joint Shoulder Region Office Visit 02/27/2004 12:55p Main Office klepack 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 780.55 Disruption Of 24 Hour Sleep Wake Cycle Unspecified 257.8 Testicular Dysfunction Other Office Visit 04/04/2003 4:15p Main Office klepack 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 780.55 Disruption Of 24 Hour Sleep Wake Cycle Unspecified Office Visit 10/24/2002 3:30p Main Office klepack V70.0 Examination General Medical Routine AT Health Care Facility Plan of Treatment Future Appointment(s):08/29/2018 11:15 am - Vu Bell M.D. at Main G[facility]8002/28/2018 - Vu Bell M.D.E03.9 Hypothyroidism, hupxhmbcaljJ85.1 Testicular hypofunctionFollow up:RTO 6 months Get bloodwork next week, on the morning you are due for a testosterone injection.I10 Essential (primary) ndvcugltfnzgP69.512 Pain in left uecoyskiO69.9 Systemic involvement of connective tissue, unspecifiedComments:undifferentiated CTD per Dr Meraz79.899 Other alf (current) drug therapy
--- OUTSIDE RECORDS SUMMARY | 2018-03-11 19:45 | XMS REPORT | Continuity of Care Document ---
:1960 External Reference #:[id number] Author Name Loida Nixon Care Team Providers Name Role Phone Vu Bell MD Primary Care Physician Unavailable Payers Type Date Identification Numbers Payment Provider Subscriber Policy Number: [id number] [employer] Perry Pendleton PayID: [id number] [address] [address] [place] [address] Effective: 2013 Policy Number: [id number] [employer] Perry Pendleton Expires: 2014 PayID: [id number] [address] [address] [place] [address] Advance Directives Description No Information Available Problems Date Description Provider Status Onset: 12/01/2014 Achilles bursitis Neha Mejia M.D. Active Onset: 12/01/2014 Pain in calf Neha Mejia M.D. Active Onset: 08/10/2016 Localized, primary osteoarthritis Neha Mejia M.D. Active Onset: 01/23/2017 Acute meniscal tear, lateral, anterior Neha Mejia M.D. Active horn Family History Date Family Member(s) Problem(s) Comments General Cancer Social History Type Date Description Comments Sex Unknown Marital Status Lives With Occupation Retired ETOH Use Rarely consumes alcohol Tobacco Use Start: Unknown Patient has never smoked Smoking Status Reviewed: 02/23/18 Patient has never smoked Exercise Type/Frequency Exercises regularly Allergies, Adverse Reactions, Alerts Description No Known Drug Allergies Medications Medication Date Status Form Strength Qnty SIG Indications Ordering Provider Plaquenil 02/06/ Active Tablets 200mg 30tab 1 by mouth Wilfrido 2018 s every day Shannan, for 1 week M.D. then 2 by mouth daily ongoing Voltaren 12/19/ Active Gel 1% 200un apply 2 2017 its grams Shannan, twice M.D. daily as needed for pain to the hands and prurigo nodularis Levothyroxine / Active Tablets 150mcg 1 by mouth Unknown Sodium 0000 every day Tamsulosin HCL / Active Capsules 0.4mg 1 by mouth Unknown 0000 every day Dexilant / Active Capsules 60mg 1 by mouth Unknown 0000 DR every day Turmeric / Active Capsules 500mg take one Unknown Curcumin 0000 capsule/ta blet daily by mouth Meloxicam 08/10/ Hx Tablets 15mg 60tab 1 by mouth M25.562 Neha 2016 s every day Melanie Mejia Naproxen 02/28/ Hx Tablets 500mg 30tab 1 tablet M76.61 Neha 2015 - s with food Roberto, 01/06/ by mouth M.D. 2017 twice a day Meloxicam 12/29/ Hx Tablets 7.5mg 40tab take 1 tab M76.62 Khushbu 2014 - s by mouth Carmendondomenico, 02/27/ qdaily [employer] 2015 with food Acid Reflux / Hx Unknown Medication 0000 - 2016 Omeprazole / Hx Unknown 0000 Bactrim DS / Hx Tablets 800-160mg 1 by mouth Unknown 0000 - twice a 2017 Medications Administered in Office Medication Date Status Form Strength Qnty SIG Indications Ordering Provider Depomedrol Administered Injection Neha 40MG 018 Melanie Mejia Depomedrol Administered Injection Neha 40MG 018 Melanie Mejia Depomedrol Administered Injection Cosmo 40MG 017 Melanie Modi Immunizations Description No Information Available Vital Signs Date Vital Result Comment 02/23/2018 10:09am Height 69 inches 5'9" Weight 227.00 lb Heart Rate 88 /min BP Systolic 146 mmHg BP Diastolic 84 mmHg BMI (Body Mass Index) 33.5 kg/m2 02/06/2018 7:58am Height 69 inches 5'9" Weight 224.38 lb Heart Rate 76 /min BP Systolic Sitting 138 mmHg BP Diastolic Sitting 82 mmHg Pain Level 1 O2 % BldC Oximetry 97 % BMI (Body Mass Index) 33.1 kg/m2 12/19/2017 10:02am Height 69 inches 5'9" Weight 223.50 lb Heart Rate 73 /min BP Systolic Sitting 142 mmHg BP Diastolic Sitting 89 mmHg Respiratory Rate 14 /min Pain Level 0 BMI (Body Mass Index) 33.0 kg/m2 06/20/2017 8:04am Height 69 inches 5'9" Weight 220.00 lb Heart Rate 76 /min BP Systolic 180 mmHg BP Diastolic 92 mmHg Respiratory Rate 12 /min Body Temperature 97.9 F Pain Level 2 BMI (Body Mass Index) 32.5 kg/m2 05/11/2017 9:21am Height 69 inches 5'9" Weight 220.00 lb per pt BP Systolic 160 mmHg BP Diastolic 98 mmHg Respiratory Rate 16 /min Body Temperature 98.1 F Pain Level 6 BMI (Body Mass Index) 32.5 kg/m2 03/30/2017 12:58pm Height 69 inches 5'9" Weight 220.00 lb Heart Rate 80 /min BP Systolic 156 mmHg BP Diastolic 100 mmHg Respiratory Rate 18 /min Body Temperature 97.7 F BMI (Body Mass Index) 32.5 kg/m2 01/23/2017 10:55am Height 69 inches 5'9" Weight 220.00 lb Heart Rate 72 /min BP Systolic 140 mmHg BP Diastolic 88 mmHg Body Temperature 97.2 F Pain Level 7 BMI (Body Mass Index) 32.5 kg/m2 01/06/2017 9:37am Height 69 inches 5'9" Weight 220.00 lb Heart Rate 79 /min BP Systolic 138 mmHg BP Diastolic 90 mmHg BMI (Body Mass Index) 32.5 kg/m2 08/10/2016 11:06am Height 69 inches 5'9" Weight 215.00 lb BP Systolic 144 mmHg BP Diastolic 90 mmHg Respiratory Rate 18 /min Pain Level 6 BMI (Body Mass Index) 31.7 kg/m2 04/21/2016 9:06am Height 69 inches 5'9" Weight 215.00 lb Heart Rate 80 /min BP Systolic 140 mmHg BP Diastolic 98 mmHg Respiratory Rate 18 /min Pain Level 3 BMI (Body Mass Index) 31.7 kg/m2 03/25/2016 2:33pm Height 69 inches 5'9" Weight 215.00 lb Pain Level 3 BMI (Body Mass Index) 31.7 kg/m2 03/04/2016 8:25am Height 69 inches 5'9" Weight 215.00 lb Heart Rate 64 /min BP Systolic Sitting 144 mmHg BP Diastolic Sitting 92 mmHg Respiratory Rate 16 /min Pain Level 5 BMI (Body Mass Index) 31.7 kg/m2 02/29/2016 8:17am Height 69 inches 5'9" Weight 215.00 lb Heart Rate 85 /min BP Systolic 156 mmHg BP Diastolic 94 mmHg BMI (Body Mass Index) 31.7 kg/m2 12/29/2014 9:37am Height 69 inches 5'9" Weight 220.00 lb Pain Level 5 BMI (Body Mass Index) 32.5 kg/m2 12/01/2014 3:04pm Height 69 inches 5'9" Weight 220.00 lb Pain Level 5 BMI (Body Mass Index) 32.5 kg/m2 Results Test Date Facility Test Result H/L Range Note Comp Metabolic Panel 02/12/2018 [facility] Sodium 138 mmol/L N 135-[address] [place] [address] [phone] Chloride 104 mmol/L N 101-111 Co2 Carbon [...] 3.5-5.0 Anion Gap 4 mmol/L N 2-11 Urinalysis Profile 02/12/2018 [facility] Urine Color Colorless [address] [place] [address] [phone] Urine Appearance Clear Urine Specific [place] 1.004 Low 1.010-1.030 Urine pH 6.0 N 5-9 Urine Urobilinogen Negative Negative Urine Ketones Negative Negative Urine Protein Negative Negative Urine Leukocytes Negative Negative Urine Blood 1+ Abnormal Negative Urine Nitrite Negative Negative Urine Bilirubin Negative Negative Urine Glucose Negative Negative Urine White Blood Cell Absent Absent Urine Red Blood Cell Trace(0-2/hpf) Absent Urine Bacteria Absent Absent Laboratory test 02/12/2018 [facility] Creatine 310 U/L High 10 -[address] Kinase(CK) [place] [address] [phone] Hla B27 12/19/2017 [facility] Hla B27 Positive [address] [place] [address] [phone] Hla B27 Interp See Comment 3 Kayley Igg AB Reflex 12/19/2017 [facility] SS-A/Ro Antibody 0.[address] [place] [address] [phone] SS-B/La Antibody 0.2 U 5 Sm (Boyd) IgG Antibody 0.8 U 6 COMPLIANCE REVIEW SPECIALIST Antibody, IgG 0.3 U 7 Scl-70 (Scleroderma) Antibody <0.2 U 8 Andie-1 Antibody 0.3 U 9 Laboratory test 12/19/2017 [facility] Magnesium 1.9 mg/dL N 1.9-2.7 10 finding [address] [place] [address] [phone] Erythrocyte Sed Rate 11 mm/Hr N 0-20 11 C Reactive Protein 4.11 mg/L N <8.01 12 Rheumatoid Factor < 10 IU/mL N <15 13 Anti Double Stranded Dna AB 40.1 IU/mL Abnormal 14 Vitamin D, 1,25 Dihydroxy 46 pg/mL 18-64 15 Arthritis Panel 08/11/2016 [facility] Uric Acid 5.9 mg/dL N 4.4-7.6 [address] [place] [address] [phone] Erythrocyte Sed Rate 10 mm/Hr N 0-20 Rheumatoid Factor <15 IU/mL N <15 16 Anti-Nuclear Antibody 1.1 U High 17 Cyclic Citrullinated Peptide 16.4 U N 18 Interpretation See Comment N 19 1 Because ethnic data is not always [...] 5 Kidney failure <15 (or dialysis) 2 REFERENCE VALUE Not Applicable 3 HLA-B27 antigen was detected. Approximately 8% of [...] INFORMATION Method: Flow Cytometry Performing Laboratory CLIA# [id number] Test Performed by: [facility] - [address] [address] 4 REFERENCE VALUE <1.0 (Negative) 5 REFERENCE VALUE <1.0 (Negative) 6 REFERENCE VALUE <1.0 (Negative) 7 REFERENCE VALUE <1.0 (Negative) 8 REFERENCE VALUE <1.0 (Negative) 9 REFERENCE VALUE <1.0 (Negative) Test Performed by: [facility] [place] [address] 10 Please check labs and xrays today 11 Please check labs and xrays today 12 Please check labs and xrays today 13 Please check labs and xrays today 14 Interpretation: Borderline (30.0-75.0) REFERENCE VALUE <30.0 (Negative) Test Performed by: [facility] - [place] [id number] 15 ADDITIONAL INFORMATION This test was developed and its performance characteristics determined by [facility] in a manner consistent with CLIA requirements. This test has not been cleared or approved by the U.S. Food and Drug Administration. Test Performed by: [facility] - [address] [place] [address] 16 Test Performed by: [facility] [place] [address] 17 Interpretation: Weak Positive (1.1-2.9) REFERENCE VALUE <=1.0 (Negative) 18 REFERENCE VALUE <20.0 (Negative) 19 Tests for antibodies to dsDNA and KAYLEY antigens are not performed automatically unless the DAILY result is > or= 3.0 U. Studies performed at [facility] indicate that positive DAILY results <3.0 U are rarely accompanied by positive second order tests. 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 polyarthropathy R76.0 Raised antibody titer M65.332 Trigger finger, left middle finger R22.31 Localized swelling, mass and lump, right upper limb L28.1 Prurigo nodularis R25.2 Cramp and spasm Office Visit 06/20/2017 8:15a Orthopedic Cosmo [place].62 [facility] Melanie Modi tendinitis, left C.M.A. leg Office Visit 05/11/2017 9:15a Orthopedic Cosmo [place].61 [facility] Melanie Modi tendinitis, right C.M.A. leg Office Visit 03/30/2017 1:00p Surgical Hector Costa K57.92 Dvtrcli of [facility] Hu MD, intest, part FACS unsp, w/o perf or abscess w/o bleed N28.1 Cyst of kidney, acquired Office Visit 01/23/2017 10:45a Orthopedic Services Neha Roberto, M25.562 Pain in left Of C.M.A. M.D. knee M25.462 Effusion, left knee M17.12 Unilateral primary osteoarthritis, left knee S83.272A Complex tear of lat mensc, current injury, left knee, init Office Visit 01/06/2017 9:15a Orthopedic Services Neha Mejia, M25.562 Pain in left Of C.M.A. M.D. knee M25.462 Effusion, left knee M17.12 Unilateral primary osteoarthritis, left knee S86.122A Lacerat musc/tend post grp at low leg level, left leg, init Office Visit 08/10/2016 10:30a Orthopedic Services Neha Mejia, M25.562 Pain in left Of C.M.A. M.D. knee M25.462 Effusion, left knee M17.12 Unilateral primary osteoarthritis, left knee M76.892 Oth enthesopathies of left lower limb, excluding foot Office Visit 04/21/2016 9:00a Orthopedic Cosmo Womack [facility] Mel[facility] Modi tendinitis, right C.M.A. leg Office Visit 03/04/2016 8:30a Orthopedic Cosmo Womack [facility] Modi tendinitis, right C.M.A. leg Office Visit 02/29/2016 8:15a Orthopedic Vu Irvin [facility] Melanie tendinitis, right C.M.A. leg M25.571 Pain in right ankle and joints of right foot Office Visit 02/01/2016 [facility] K57.20 Dvtrcli of lg int 2:25p Assoc,jose Charles M.D. 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 leg M79.662 Pain in left lower leg Office Visit 12/01/2014 2:30p Orthopedic Moni Irvni.62 [facility] M.DPorsche tendinitis, left C.M.A. leg M79.662 Pain in left lower leg Office Visit 03/11/2014 [facility] Iris 562.11 Diverticulitis 9:46a Assoc,CANDY Mitchell Colon W/O Hospitalists Hemorrhage Office Visit 01/21/2010 Orthopedic Maria Del Rosario 842.10 Sprains & Strains 1:45p Services Of Saqib Haley M.D. Plan of Treatment Future Appointment(s):04/06/2018 8:00 am - Neha Mejia M.D. at [facility] [place]03/21/2018 8:40 am - Wilfrido Campbell M.D. at [facility]02/23/2018 - Neha Mejia M.D.M25.562 Pain in left kneeNew Xrays :Knee 3 Views Bilateral, Ordered: 02/23/18ollow up:Follow up: 6 dqhaoG84.561 Pain in right kneeNew Xrays:Knee 3 Views Bilateral, Ordered: 02/23/18M25.462 Effusion, left kneeM25.461 Effusion, right kneeM17.0 Bilateral primary osteoarthritis of knee
[2018-03-11] MEDS: oxyCODONE/Acetamin 5/325 MG* TAB PO ONE (21:31)
[2018-03-11] MEDS: Dexamethasone IV* 4 MG/ML 1 ML (4 MG) IM ONE (21:32)
[2018-03-11] MEDS: Ketorolac INJ* 30 MG/ML 1 ML VIAL IM ONE (21:32)
--- NOTE | 2018-03-11 21:50 | ED ---
Back Pain - HPI Summary HPI Summary: 57-year-old male presents with back pain today. 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 He states is where he has had pain before. He states that every couple months he has extreme back pain. He states he took muscle relaxer, lidocaine patch and some ibuprofen without relief. He states is located in one area around L4-L5 region where has a herniated disc on the right. No pain in the legs. No numbness or tingling. No weakness. No difficulty to ambulate. He states pain is better when he is ambulating and is worse when he tries to change positions or lay down. He denies any fevers. No saddle anesthesias or loss of bowel or bladder. - History of Current Complaint Chief Complaint: EDBackInjuryPain Stated Complaint: BACK PAIN Time Seen by Provider: 03/11/18 20:47 Pain Intensity: 6 - Allergies/Home Medications Allergies/Adverse Reactions: Allergies Allergy/AdvReac Type Severity Reaction Status Date / Time No Known Allergies Allergy Verified 03/11/18 20:49 PMH/Surg Hx/FS Hx/Imm Hx Endocrine/Hematology History: Reports: Hx Thyroid Disease Denies: Hx Anticoagulant Therapy, Hx Diabetes Cardiovascular History: Reports: Hx Hypertension - HE states that his BP tends to run high, but not enough to Rx. Denies: Hx Congestive Heart Failure, Hx Pacemaker/ICD, Other Cardiovascular Problems/Disorders Respiratory History: Denies: Hx Asthma, Hx Chronic Obstructive Pulmonary Disease (COPD), Hx Lung Cancer, Hx Pneumonia, Hx Pulmonary Embolism, Other Respiratory Problems/ Disorders GI History: Reports: Hx Diverticulosis, Hx Gastroesophageal Reflux Disease, Other GI Disorders - diverticulosis hx Denies: Hx Gall Bladder Disease, Hx Gastrointestinal Bleed, Hx Ulcer, Hx Urosepsis History: Denies: Hx Dialysis, Hx Kidney Stones, Hx Renal Disease Musculoskeletal History: Reports: Hx Arthritis - around L4-L5, Hx Back Problems - L4-L5 slipped disc, Other Musculoskeletal History - Bilateral rotator cuff Sensory History: Reports: Hx Contacts or Glasses - reading Denies: Hx Hearing Aid Opthamlomology History: Reports: Hx Contacts or Glasses - reading Neurological History: Denies: Hx Dementia, Hx Migraine, Hx Seizures, Hx Transient Ischemic Attacks (TIA) Psychiatric History: Denies: Hx Anxiety, Hx Depression, Hx Panic Disorder, Hx Schizophrenia, Hx Bipolar Disorder - Cancer History Cancer Type, Location and Year: melanoma ON BACK AND CHEST Hx Chemotherapy: No Hx Radiation Therapy: No - Surgical History Surgery Procedure, Year, and Place: Left wrist surgeries(GANGLION CYSTS) - 3 TOTAL. 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 Hx Anesthesia Reactions: No - Immunization History Date of Tetanus Vaccine: unk Date of Influenza Vaccine: none Infectious Disease History: No Infectious Disease History: Denies: Traveled Outside the [place] in Last 30 Days - Family History Known Family History: Positive: Hypertension, Other - CA Negative: Cardiac Disease, Respiratory Disease - Social History Alcohol Use: Rare Alcohol Amount: 1-2 per year Substance Use Type: Reports: None Smoking Status (MU): Never Smoked Tobacco Have You Smoked in the Last Year: No Review of Systems Negative: Fever Negative: Chest Pain Negative: Shortness Of Breath Positive: Myalgia - back pain All Other Systems Reviewed And Are Negative: Yes Physical Exam Triage Information Reviewed: Yes Vital Signs On Initial Exam: Initial Vitals Temp Pulse Resp BP Pulse Ox 97.7 F 83 20 151/83 96 03/11/18 19:35 03/11/18 19:35 03/11/18 19:35 03/11/18 19:35 03/11/18 19:35 Vital Signs Reviewed: Yes Appearance: Positive: Well-Appearing Skin: Positive: Warm, Dry Head/Face: Positive: Normal Head/Face Inspection Eyes: Positive: Normal, Conjunctiva Clear ENT: Positive: Pharynx normal Respiratory/Lung Sounds: Positive: Clear to Auscultation, Breath Sounds Present Cardiovascular: Positive: Normal, RRR Musculoskeletal: Positive: Limited @ - back, Other - tenderness back lower right , good pulses, sensation grossly intact Neurological: Positive: Reflexes Intact - patella, Normal Gait Psychiatric: Positive: Normal Diagnostics - Vital Signs Vital Signs Temp Pulse Resp BP Pulse Ox 03/11/18 21:31 16 03/11/18 19:35 97.7 F 83 20 151/83 96 - Laboratory Lab Statement: Any lab studies that have been ordered have been reviewed, and results considered in the medical decision making process. - Radiology lumbar Radiology Interpretation Completed By: ED Physician Summary of Radiographic Findings: degenerative changes, no fracture Re-Evaluation - Re-Evaluation First Eval Re-Evaluation Time: 22:15 Change: Improved Comment: pain improved but not completely done Back Pain Course/Dx - Course Course Of Treatment: 57-year-old male presents with back pain today. 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 He states is where he has had pain before. He states that every couple months he has extreme back pain. He states he took muscle relaxer, lidocaine patch and some ibuprofen without relief. He states is located in one area around L4-L5 region where has a herniated disc on the right. No pain in the legs. No numbness or tingling. No weakness. No difficulty to ambulate. He states pain is better when he is ambulating and is worse when he tries to change positions or lay down. He denies any fevers. No saddle anesthesias or loss of bowel or bladder. On exam has tenderness right lower back. Neurovascular intact. Negative straight leg raise. Patellar reflexes intact. Lumbar x-ray normal. Gave Decadron and Toradol and Percocet and pain improved. will give dose of valium and discharge with norco and medrol package. told to follow up with primary. patient understand and agrees with plan. - Diagnoses Differential Diagnosis/HQI/PQRI: Positive: Fracture, Herniated Disc, Strain Provider Diagnoses: Back pain Discharge - Sign-Out/Discharge Documenting (check all that apply): Patient Departure - Discharge Plan Condition: Good Disposition: HOME Prescriptions: HYDROcodone/ACETAMIN 5-325 MG* [Jenks 5-325 TAB*] 1 tab PO Q6H PRN #16 tab MDD 4 PRN Reason: Pain methylPREDNISolone [Medrol Dosepak 4 MG*] 4 mg PO .SEE SVETLANA INSTRUCTION #1 packet Patient Education Materials: Back Pain (ED) Referrals: Vu Bell MD [Primary Care Provider] - Additional Instructions: Follow directions on package for Medrol pack Use ibuprofen or Tylenol for pain every 6 hours, take norco every 6 hours as needed for break through pain ice/heat area, move as much as possible Follow up with primary within 5 days Return to ED if develop any new or worsening symptoms - Billing Disposition and Condition Condition: GOOD Disposition: Home
[2018-03-11] MEDS ORDERED: oxyCODONE/Acetamin 5/325 MG* TAB PO ONE (22:11)
[2018-03-11] MEDS: Diazepam TAB(*) 5 MG PO ONE (22:32)
[2018-03-11 22:45] VITALS: BP 146/94
== END 2018-03-11 22:44 | disposition home or self-care (01) ==
LOC: ED 19:33
DX: M54.9 Dorsalgia, unspecified (principal); K21.9 Gastro-esophageal reflux disease without esophagitis; Z85.820 Personal history of malignant melanoma of skin; M51.37 Other intervertebral disc degeneration, lumbosacral region
CPT/HCPCS: 72110; 96372; 99282; A9270-GY; J1100; J1885

== ENCOUNTER 2018-12-09 10:52 | Emergency (ER) | payer BC ==
[2018-12-09 10:59] VITALS: BP 143/97
--- NOTE | 2018-12-09 11:21 | UC ---
Throat Pain/Nasal Prieto HPI - HPI Summary HPI Summary: CHIEF COMPLAINT and HPI: This is a 57-year-old male complains of 10 days of sinus discomfort. This condition is moderately uncomfortable and is accompanied by congestion of the ears as well as a dry cough. VITAL SIGNS & SaO2 REVIEWED. Within normal limits unless noted here. Elevated blood pressure of 143/97. This was discussed with the patient. He is not on antihypertensive medications at this time. NURSES NOTE REVIEWED. - History of Current Complaint Chief Complaint: UCRespiratory Stated Complaint: SINUSES Time Seen by Provider: 12/09/18 11:19 Pain Intensity: 2 - Allergies/Home Medications Allergies/Adverse Reactions: Allergies Allergy/AdvReac Type Severity Reaction Status Date / Time No Known Allergies Allergy Verified 12/09/18 10:59 Home Medications: Home Medications Hydroxychloroquine TAB* [Plaquenil TAB*] 200 mg PO QPM 12/09/18 [History Confirmed 12/09/18] PMH/Surg Hx/FS Hx/Imm Hx - Additional Past Medical History Additional PMH: PAST MEDICAL HISTORY- CHRONIC and RECURRENT HEALTH PROBLEM LIST REVIEWED. Information relevant to present complaint: Hypothyroidism, GERD, herniated disc , elevated blood pressure that is not treated, melanoma. VISIT HISTORY REVIEWED: Inflammatory polyarthropathy. Past medical history of diverticulitis treated with hospital admission and medication. MEDICATIONS & ALLERGIES REVIEWED. Patient takes medications for joint pain, as well as Synthroid. Although Vicodin is on his medication list. He is no longer taking that. He also takes medication for GERD. HYPERTENSION STATUS: History of elevated blood pressure, not currently treated. He is in communication with his doctor about this. FAMILY HISTORY: Positive for: hypertension Patient denies family history of: cardiovascular disease, stroke, diabetes, cancer. 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 Previously Healthy: Yes Other History Of: Negative For: HIV, Hepatitis B, Hepatitis C, Anticoagulant Therapy - Surgical History Surgical History: Yes Surgery Procedure, Year, and Place: Left wrist surgeries(GANGLION CYSTS) - 3 TOTAL. 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 - Family History Known Family History: Positive: Hypertension, Other - CA Negative: Cardiac Disease, Respiratory Disease - Social History Alcohol Use: Rare Alcohol Amount: 1-2 per year Substance Use Type: None Smoking Status (MU): Never Smoked Tobacco Have You Smoked in the Last Year: No - Immunization History Most Recent Influenza Vaccination: unknown Most Recent Tetanus Shot: up to date Most Recent Pneumonia Vaccination: never Review of Systems All Other Systems Reviewed And Are Negative: Yes Constitutional: Positive: Negative Eyes: Positive: Negative ENT: Positive: Ear Ache, Sinus Congestion, Sinus Pain/Tenderness. Negative: Nasal Discharge Respiratory: Positive: Negative Cardiovascular: Positive: Negative Gastrointestinal: Positive: Negative Genitourinary: Positive: Negative Is Patient Immunocompromised?: No Physical Exam - Summary Physical Exam Summary: Appearance: The patient is well-appearing, is in no pain or distress, and is well-nourished. Eyes: Conjunctiva are clear. Pupils are equal and reactive to light and accommodation. Extra ocular muscle movement is intact. ENT: The hearing is grossly normal, the pharynx is normal, and the TMs are normal. There is no muffled or hoarse voice. No stridor. Mild tenderness over the maxillary and frontal sinuses. Neck: The neck is supple and there is no lymphadenopathy. Respiratory: The chest is non-tender to palpation and without crepitus. The lungs are clear, there are normal breath sounds, and there is no respiratory distress. No wheezes, rales or rhonchi. Cardiovascular: Heart sounds reveal a regular rate and rhythm. There are no clicks, rubs or murmurs. There are no carotid bruits or thrills. Circulation is grossly intact. Abdomen: The abdomen is soft and nontender. There is no organomegaly. Bowel sounds are present and within normal limits. No point tenderness at McBurneys point. No CVA tenderness. Musculoskeletal: Strength is intact. The patient moves all extremities. Neurological: The patient is alert. Motor and sensory are examination grossly intact. Speech is normal. Psychological: The patient displays age appropriate behavior, and is conversant. GCS=15. Skin: Negative for rashes. Triage Information Reviewed: Yes Vital Signs: Initial Vital Signs Temp 97.8 F 12/09/18 10:57 Pulse 71 12/09/18 10:57 Resp 17 12/09/18 10:57 BP 143/97 12/09/18 10:57 Pulse Ox 100 12/09/18 10:57 Throat Pain/Nasal Course/Dx - Course Course Of Treatment: This is a 57-year-old male complains of 10 days of sinus discomfort. This condition is moderately uncomfortable and is accompanied by congestion of the ears as well as a dry cough. VITAL SIGNS & SaO2 REVIEWED. Within normal limits unless noted here. Elevated blood pressure of 143/97. This was discussed with the patient. He is not on antihypertensive medications at this time. History and physical exam is consistent with mild sinusitis, lasting for 10 days. I will give him doxycycline, 100 mg twice a day for 7 days. - Differential Dx/Diagnosis Differential Diagnosis/HQI/PQRI: Pharyngitis, Sinusitis, URI Provider Diagnosis: Sinusitis Discharge ED - Sign-Out/Discharge Documenting (check all that apply): Patient Departure All imaging exams completed and their final reports reviewed: No Studies - Discharge Plan Condition: Stable Disposition: HOME Prescriptions: DOXYcycline CAP(*) [DOXYcycline 100MG CAP(*)] 100 mg PO BID #14 cap Patient Education Materials: Sinusitis (ED) Referrals: Vu Bell MD [Primary Care Provider] - Additional Instructions: WE DISCUSSED: PLEASE SEEK CARE AT THE EMERGENCY DEPARTMENT IF SYMPTOMS WORSEN OR IF NEW SYMPTOMS DEVELOP. FOLLOW UP WITH YOUR PRIMARY CARE PHYSICIAN IF CONDITION CONTINUES BEYOND 3 DAYS WITHOUT IMPROVEMENT. YOUR DIAGNOSIS IS: Sinusitis and sinus congestion. YOUR PRESCRIPTION RECOMMENDATION IS: Doxycycline 100 mg twice a day for 7 days OTHER INSTRUCTIONS: Hypertension Discharge Instructions: Your blood pressure reading today was 143/97 , indicating HYPERTENSION. Follow- up with your primary care provider within 4 weeks for blood pressure check and appropriate recommendations and treatment, as needed. FOR PAIN AND/OR SLEEP: For pain: Ibuprofen (Motrin and other brand names) 400-600mg PLUS acetaminophen (Tylenol and other brand names) 500mg - 1000mg every 8 hours. other instructions: WHAT ELSE CAN HELP RELIEVE YOUR SYMPTOMS: GENERAL TYPES OF MEDICINE THAT MAY HELP DECONGESTANTS: helps relieve stuffiness and clears sinuses. Pseudoephedrine ( Sudafed or generic) is effective but you need to ask the pharmacist for it because it may be kept behind the counter. ANTIHISTAMINES: are NOT helpful in many colds and flus because they can worsen sore throat, dry eyes and mouth and cause drowsiness. Examples are diphenhydramine, doxylamine and chlorpheniramine. They can help dry you out if you are having profuse, clear drainage from the nose. EXPECTORANTS: helps thin mucous in the nose and chest, making it easier to clear the fluid out. Expectorants are in most combination cough/cold remedies and should be taken with plenty of water. Guaifenesin is the most common expectorant and it comes in pill or liquid form. Mucinex is an extended release form of guaifenesin. COUGH SUPPRESANT: reduces the body's cough reflex. Dextromethorphan is in over the counter products. Rarely, narcotics such as codeine or hydrocodone are used to suppress cough. SPECIFIC MEDICATIONS: Some of these may come in combination. In general, they all contain the same or similar active ingredients. The most important goal is to liquefy all the phlegm and get it out of your head and chest: The following medicines (you can buy them without prescription) may help: To help with cough: DEXTROMETHORPHAN (Vicks, Robitussin, Nyquil and other brands) To help break up phlegm: GUAIFENESIN (Mucinex, Robitussin, other brands) To help clear congestion: PSEUDOEPHEDRINE (Sudafed, Dimetapp, other brands) TRY TO CLEAR NOSE: AFRIN NASAL SPRAY: 2-3 SPRAYS PER NOSTRIL, TWICE A DAY FOR TWO DAYS ONLY. USEFUL WAYS TO FEEL BETTER WITHOUT MEDICATIONS: STAND UNDER SHOWER STREAM TO LOOSEN SECRETIONS. USE A VAPORIZOR. STAY AWAY FROM ANY SMOKE OR IRRITANTS. USE SALINE NASAL SPRAY TO KEEP FLOW OF MUCOUS FROM NOSTRILS AND SINUSES. CONSIDER USING NETI POT TO HELP WITH ALLERGIES AND CONGESTION IN THE NOSE. USE THIS THREE TIMES A WEEK. YOU CAN GET THIS AT [employer] IN [place] OR VARIOUS DRUGSTORES. DRINK LOTS OF WARM FLUIDS USEFUL HOME REMEDIES: WARM WATER GARGLES, WITH TSP OF SALT PER 8 OUNCES OF WATER, GARGLE FOR A FEW SECONDS AND SPIT OUT; GARGLE AND SPIT OUT; EVERY THREE HOURS. AND/OR: WARM WATER OR TEA, HONEY AND LEMON; 2-3 CUPS A DAY. FOR SORE THROAT: KEEP THROAT MOIST WITH LOZENGES; TEA AND HONEY. USE WARM WATER GARGLES 3-4 TIMES A DAY. - Billing Disposition and Condition Condition: STABLE Disposition: Home
== END 2018-12-09 11:48 | disposition home or self-care (01) ==
LOC: UCEAST 10:52
DX: J02.9 Acute pharyngitis, unspecified (principal); E03.9 Hypothyroidism, unspecified; K21.9 Gastro-esophageal reflux disease without esophagitis; Z85.820 Personal history of malignant melanoma of skin; Z79.890 Hormone replacement therapy
CPT/HCPCS: 99212; G0463

== ENCOUNTER 2019-03-11 08:27 | Emergency (ER) | payer BC ==
--- OUTSIDE RECORDS SUMMARY | 2019-03-11 08:33 | XMS REPORT | Summary of Care ---
:1960 Author Organization [facility] Address [address] [facility] [place] [address] Care Team Providers Name Role Phone Vu Bell MD Primary Care Provider Reason for Visit Reason Comments Injection Left shoulder pain. Patient is here for an injection today. Encounter Details Date Type Department Care Team Description 01/30/2019 Office Visit [facility] - Nick Russo MD Nontraumatic tear of [place] [address] [facility] left rotator cuff, [address] [facility] [place] [address] unspecified tear [address] [phone] extent (Primary Dx) [place] [address] [phone] Allergies No Known Allergiesdocumented as of this encounter (statuses as of 01/30/2019) Medications Medication Sig Dispensed Refills Start Date End Date Status LEVOTHYROXINE SODIUM PO Take 150 mg 0 Active by mouth. tramadol (ULTRAM) 50 MG take 1 to 2 30 Tab 0 10/27/2016 Active Oral Tab tablets by mouth every 6 hours if needed for pain maximum daily dose of 5 Dexlansoprazole Take by 0 Active (DEXILANT) 60 MG Oral mouth. CAPSULE DELAYED RELEASE Tamsulosin HCl (FLOMAX) Take 0.4 mg 0 Active 0.4 MG Oral Cap by mouth DAILY. gabapentin (NEURONTIN) Take 100 mg 0 Active 100 MG Oral Cap by mouth THREE TIMES DAILY. methylPREDNISolone 1 mL by 1 mL 0 02/15/2016 01/31/20 Discontinued acetate (DEPO-MEDROL) Intra-articul 19 80 MG/ML Injection ar route ONE Suspension TIME. methylPREDNISolone, Take as 21 Tab 0 10/31/2016 01/31/20 Discontinued dose-keenan, (MEDROL) 4 MG directed 19 Oral Tablet Therapy Pack Hospital, Clinic, or Other Ordered Dose Route Frequency Start Date End Date Status Facility Administered Medication triamcinolone acetonide 40 mg IX NOW 01/30/2019 01/30/2019 Ended (KENALOG-40) injection 40 mg documented as of this encounter (statuses as of 01/30/2019) Active Problems Problem Noted Date Medial epicondylitis of left elbow 02/07/2018 Bursitis of right hip 05/15/2017 Complete tear of right rotator cuff 09/06/2016 Incomplete tear of right rotator cuff 08/11/2016 Chronic right shoulder pain 03/21/2016 Biceps tendinitis of right upper extremity 03/21/2016 Left shoulder pain 04/21/2015 documented as of this encounter (statuses as of 01/30/2019) Immunizations Name Administration Dates Next Due Depo Medrol (80mg) 02/15/2016 documented as of this encounter Social History Tobacco Use Types Packs/Day Years Used Date Never Smoker Smokeless Tobacco: Never Used Alcohol Use Drinks/Week oz/Week Comments No Sex Assigned at Date Recorded Not on file Job Start Date Occupation Industry Not on file Not on file Not on file Travel History Travel Start Travel End No recent travel history available. documented as of this encounter Last Filed Vital Signs Vital Sign Reading Time Taken Comments Blood Pressure 150/83 01/30/2019 9:03 AM EST Pulse 62 01/30/2019 9:03 AM EST Temperature - - Respiratory Rate - - Oxygen Saturation - - Inhaled Oxygen Concentration - - Weight 97.5 kg (215 lb) 01/30/2019 9:03 AM EST Height 175.3 cm (5' 9") 01/30/2019 9:03 AM EST Body Mass Index 31.75 01/30/2019 9:03 AM EST documented in this encounter Progress Notes Nick Russo MD - 01/30/2019 12:15 PM EST PATIENT: Perry Pendleton : 1960 DATE OF SERVICE: 01/30/2019 REFERRING PRACTITIONER: Nick Russo PRIMARY CARE PROVIDER: Vu Bell CHIEF COMPLAINT: Chief Complaint Patient presents with Injection Left shoulder pain. Patient is here for an injection today. HISTORY OF PRESENT ILLNESS: Perry Pendleton is a 58-y.o. male who returns for a follow up for left shoulder pain. PHYSICAL EXAM: Shoulder Exam General Skin: Intact Muscle Bulk: no gross atrophy noted Crepitus: minimal Neurovascular Sensation: axillary/median/ulnar/radial nerve Sensate to light touch Strength: biceps, triceps, wrist extension, wrist flexion, interossei 5/5 Vascular: Good pulse C-spine: Negative Range of motion Forward elevation: 150 Internal rotation: L5 External rotation: 20 Rotation 90 abduction: 0-90 Subscapularis Belly Press: negative Lift Off: negative Supraspinatus Supraspinatus strength testin/5 Infraspinatus/Teres Minor External rotation strength: 4/5 Hornblower: negative IMPRESSION: ICD-9-CM ICD-10-CM 1. Nontraumatic tear of left rotator cuff, unspecified tear extent M75.102 PLAN: Verbal consent was obtained. Risks and benefits discussed. 40 mg of Kenalog and 10 cc of 1% lidocaine was injected into left subacromial space from the side after prepping the shoulder sterile. Decreased pain. Continue exercises. Activity as tolerated. Non-steroidal anti inflammatory drugs for pain. Follow up as instructed. Author: Nick Russo MD 01/30/2019 09:26 documented in this encounter Plan of Treatment Name Type Priority Associated Diagnoses Order Schedule INJECTION, JOINT Procedures Routine Ordered: 01/30/2019 SHOUDLER HIP KNEE OR BURSA Health Maintenance Due Date Last Done Comments DEPRESSION SCREENING 1972 HIV SCREENING 12/28/1975 DIABETES SCREENING 1978 LIPID DISORDER SCREENING 1978 HEPATITIS C SCREENING 2000 Colonoscopy 2010 ZOSTER IMMUNIZATION SERIES (1 of 2) 2010 INFLUENZA VACCINE (#1) 2018 HPV IMMUNIZATION SERIES Aged Out No longer eligible based on patient's age to complete this topic MENINGOCOCCAL VACCINE IMM Aged Out No longer eligible based on patient's age to complete this topic PNEUMOCOCCAL 0-64 YRS Aged Out No longer eligible based on patient's age to complete this topic documented as of this encounter Results Not on filedocumented in this encounter Visit Diagnoses Diagnosis Nontraumatic tear of left rotator cuff, unspecified tear extent - Primary documented in this encounter Administered Medications Medication Order MAR Action Action Date Dose Rate Site triamcinolone acetonide Given 01/30/2019 9:24 AM 40 mg Shoulder - Left (KENALOG-40) injection 40 EST mg 40 mg, Intra-articular, NOW, 1 dose, 01/30/19 at 0930 documented in this encounter Insurance Payer Benefit Plan / Subscriber ID Effective Dates Phone Address Type Group ORIANA CRESPO xxxxxxxxxxxx 2014-Present [employer] Guarantor Name Account Type Relation to Date of Phone Billing Patient Address Perry Pendleton Personal/Family [address] (Home) [place] [address] documented as of this encounter
[2019-03-11 08:35] VITALS: BP 158/102
--- NOTE | 2019-03-11 08:45 | UC ---
Throat Pain/Nasal Prieto HPI - HPI Summary HPI Summary: 58 yo male presents with sinus symptoms. He tells me that for the past 4-5 days he has had worsening sinus pain/pressure/congestion and post nasal drip causing a sore throat. Has been taking tylenol OTC with little relief. Denies fever, chills, cough, rash. - History of Current Complaint Chief Complaint: UCGeneralIllness Stated Complaint: SINUS ISSUE SORE THROAT Time Seen by Provider: 03/11/19 08:45 Hx Obtained From: Patient Severity: Moderate Pain Intensity: 6 Pain Scale Used: 0-10 Numeric - Allergies/Home Medications Allergies/Adverse Reactions: Allergies Allergy/AdvReac Type Severity Reaction Status Date / Time No Known Allergies Allergy Verified 03/11/19 08:36 PMH/Surg Hx/FS Hx/Imm Hx - Additional Past Medical History Additional PMH: BPH Diverticulitis Endocrine History: Hypothyroidism Other History Of: Negative For: HIV, Hepatitis B, Hepatitis C, Anticoagulant Therapy - Surgical History Surgical History: Yes Surgery Procedure, Year, and Place: Left wrist surgeries(GANGLION CYSTS) - 3 TOTAL. 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 - Family History Known Family History: Positive: Hypertension, Other - CA Negative: Cardiac Disease, Respiratory Disease - Social History Lives: With Family Alcohol Use: Rare Alcohol Amount: 1-2 per year Substance Use Type: None Smoking Status (MU): Never Smoked Tobacco Have You Smoked in the Last Year: No - Immunization History Most Recent Influenza Vaccination: unknown Most Recent Tetanus Shot: up to date Most Recent Pneumonia Vaccination: never Review of Systems All Other Systems Reviewed And Are Negative: No Constitutional: Positive: Negative Skin: Positive: Negative Eyes: Positive: Negative ENT: Positive: Nasal Discharge, Sinus Congestion, Sinus Pain/Tenderness Respiratory: Positive: Negative Cardiovascular: Positive: Negative Neurological: Positive: Negative Psychological: Positive: Negative Physical Exam - Summary Physical Exam Summary: GENERAL: NAD. WDWN. No pain distress. SKIN: No rashes, sores, lesions, or open wounds. HEENT: Head: AT/NC Eyes: EOM intact. Conjunctiva clear without inflammation or discharge. Ears: Hearing grossly normal. TMs intact, no bulging, erythema, or edema. Nose: Nasal mucosa mildly swollen and erythematous with yellow/ clear discharge. TTP maxillary and frontal sinus. Positive post nasal drip Throat: Posterior oropharynx without exudates, erythema, or tonsillar enlargement. Uvula midline. NECK: Supple. Nontender. No lymphadenopathy. CHEST: CTAB. No r/r/w. No accessory muscle use. Breathing comfortably and in no distress. CV: RRR. Pulses intact. NEURO: Alert. PSYCH: Age appropriate behavior. Triage Information Reviewed: Yes Vital Signs: Initial Vital Signs Temp 97.8 F 03/11/19 08:32 Pulse 83 03/11/19 08:32 Resp 18 03/11/19 08:32 BP 158/102 03/11/19 08:32 Pulse Ox 100 03/11/19 08:32 Vital Signs Reviewed: Yes Throat Pain/Nasal Course/Dx - Course Course Of Treatment: Sinusitis - Differential Dx/Diagnosis Provider Diagnosis: Sinusitis Discharge ED - Sign-Out/Discharge Documenting (check all that apply): Patient Departure All imaging exams completed and their final reports reviewed: No Studies - Discharge Plan Condition: Stable Disposition: HOME Prescriptions: Amoxicillin PO (*) [Amoxicillin 875 MG (*)] 875 mg PO BID #14 tab Patient Education Materials: Sinusitis (ED) Referrals: Vu Bell MD [Primary Care Provider] - Additional Instructions: If you develop a fever, shortness of breath, chest pain, new or worsening symptoms - please call your PCP or go to the ED immediately. Your blood pressure was high at todays visit. Please see your primary provider within 4 weeks for recheck and re-evaluation. - Billing Disposition and Condition Condition: STABLE Disposition: Home
== END 2019-03-11 08:53 | disposition home or self-care (01) ==
LOC: UCEAST 08:27
DX: J32.9 Chronic sinusitis, unspecified (principal)
CPT/HCPCS: 99212; G0463

== ENCOUNTER 2019-05-05 10:43 | Emergency (ER) | payer BC ==
--- OUTSIDE RECORDS SUMMARY | 2019-05-05 10:48 | XMS REPORT | Continuity of Care Document ---
:1960 External Reference #:[id number] Author Name Wilfrido Campbell M.D. 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 Onset: 12/01/2014 Pain in calf Neha Mejia M.D. Onset: 12/01/2014 Localized, primary osteoarthritis Neha Mejia M.D. Onset: 08/10/2016 Acute meniscal tear, lateral, anterior horn Neha Mejia M.D. Onset: 2016 Social History Type Date Description Comments Sex Unknown ETOH Use Rarely consumes alcohol Tobacco Use Start: Unknown Patient has never smoked Smoking Status Reviewed: 03/18/19 Patient has never smoked Exercise Type/Frequency Exercises regularly Allergies, Adverse Reactions, Alerts Description No Known Drug Allergies Medications Active Medications SIG Qnty Indications Ordering Date Provider Hydroxychloroquine Take 2 Tablets 180tabs Wilfrido Campbell, 03/19/2019 Sulfate By Mouth Once M.D. 200mg Tablets Daily Celebrex 1 by mouth 30caps M17.0 Wilfrido Campbell, 03/18/2019 100mg Capsules twice a day as M.D. needed for pain/inflammati on. avoid other nsaids Voltaren apply 2 grams 200units Wilfrido Campbell, 09/26/2018 1% Gel twice daily as M.D. needed for pain to the knees and shoulders Levothyroxine Sodium 1 by mouth Unknown 150mcg every day Tablets Tamsulosin HCL 1 by mouth Unknown 0.4mg Capsules every day Dexilant 1 by mouth Unknown 60mg Capsules DR every day Turmeric Curcumin take one Unknown 500mg capsule/tablet Capsules daily by mouth Ranitidine HCL Unknown 300mg Tablets Medications Administered in Office Medication SIG Qnty Indications Ordering Provider Date Depomedrol 40MG Neha Mejia M.D. 09/21/2018 Injection Depomedrol 40MG Neha Mejia M.D. 09/21/2018 Injection Depomedrol 40MG Neha Mejia M.D. 02/23/2018 Injection Depomedrol 40MG Neha Mejia M.D. 02/23/2018 Injection Depomedrol 40MG Cosmo Modi M.D. 03/25/2016 Injection Immunizations Description No Information Available Vital Signs Date Vital Result Comment 03/18/2019 9:54am Height 69 inches 5'9" Weight 215.12 lb Heart Rate 78 /min BP Systolic Sitting 128 mmHg BP Diastolic Sitting 80 mmHg Body Temperature 96.8 F Pain Level 6 O2 % BldC Oximetry 98 % BMI (Body Mass Index) 31.8 kg/m2 09/26/2018 8:56am Height 69 inches 5'9" Weight 213.38 lb Heart Rate 70 /min BP Systolic 138 mmHg BP Diastolic 82 mmHg Pain Level 2 O2 % BldC Oximetry 97 % BMI (Body Mass Index) 31.5 kg/m2 Results Test Acquired Date Facility Test Result H/L Range Note Urinalysis Profile 03/18/2019 [facility] Urine Color Yellow [address] [place] [address] [phone] Urine Appearance Clear Urine Specific [place] 1.018 Normal 1.010-1.030 Urine pH 5.0 Normal 5-9 Urine Urobilinogen Negative Negative Urine Ketones Negative Negative Urine Protein Negative Negative Urine Leukocytes Negative Negative Urine Blood 1+ Abnormal Negative Urine Nitrite Negative Negative Urine Bilirubin Negative Negative Urine Glucose Negative Negative Urine White Blood Cell Absent Absent Urine Red Blood Cell Trace(0-2/hpf) Absent Urine Bacteria Absent Absent Laboratory test 03/18/2019 [facility] Erythrocyte Sed 6 mm/Hr Normal 0-19 [address] [place] [address] [phone] C Reactive Protein 5.93 mg/L Normal <8.01 2 Anti Double Stranded Dna AB <12.3 IU/mL 3 CBC Auto 03/18/2019 [facility] White Blood 5.7 10^3/uL Normal 3.5-10.[address] [place] [address] [phone] Red Blood Count 5.15 10^6/uL Normal 4.18-5.48 Hemoglobin 15.7 g/dL Normal 14.0-18.0 Hematocrit 46 % Normal 42-52 Mean Corpuscular Volume 89 fL Normal 80-94 Mean Corpuscular Hemoglobin 31 pg Normal 27-31 Mean Corpuscular HGB Conc 34 g/dL Normal 31-36 Red Cell Distribution Width 14 % Normal 10-15 Platelet Count 325 10^3/uL Normal 150-450 Mean Platelet Volume 7.3 fL Low 7.4-10.4 Abs Neutrophils 3.8 10^3/uL Normal 1.5-7.7 Abs Lymphocytes 1.0 10^3/uL Normal 1.0-4.8 Abs Monocytes 0.6 10^3/uL Normal 0-0.8 Abs Eosinophils 0.4 10^3/uL Normal 0-0.6 Abs Basophils 0.0 10^3/uL Normal 0-0.2 Abs Nucleated RBC 0.0 10^3/uL Granulocyte % 65.8 % Lymphocyte % 17.0 % Monocyte % 10.1 % Eosinophil % 6.5 % Basophil % 0.6 % Nucleated Red Blood Cells % 0.0 Comp Metabolic 03/18/2019 [facility] Sodium 137 mmol/L Normal 135-[address] [place] [address] [phone] Potassium 4.3 mmol/L Normal 3.5-5.0 Chloride 103 mmol/L Normal 101-111 Co2 Carbon Dioxide 28 mmol/L Normal 22-32 Anion Gap 6 mmol/L Normal 2-11 Glucose 86 mg/dL Normal 70-100 Blood Urea Nitrogen 33 mg/dL High 6-24 Creatinine 1.32 mg/dL High 0.67-1.17 BUN/Creatinine Ratio 25.0 High 8-20 Calcium 9.6 mg/dL Normal 8.6-10.3 Total Protein 6.8 g/dL Normal 6.4-8.9 Albumin 4.3 g/dL Normal 3.2-5.2 Globulin 2.5 g/dL Normal 2-4 Albumin/Globulin Ratio 1.7 Normal 1-3 Total Bilirubin 0.70 mg/dL Normal 0.2-1.0 Alkaline Phosphatase 59 U/L Normal 34-104 Alt 30 U/L Normal 7-52 Ast 30 U/L Normal 13-39 Egfr Non- 55.7 >60 Egfr 67.4 >60 4 Laboratory test 03/18/2019 [facility] Creatine 232 U/L High 10 -223 [address] Kinase(CK) [place] [address] [phone] 1 Please check 2 days before follow up 2 Please check 2 days before follow up 3 REFERENCE VALUE <30.0 (Negative) Test Performed by: [facility] [address] [place] [address] Web Site Project Manager: Maverick Mcclellan M.D. 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 involvement of connective tissue, unspecified Z79.899 Other fdc (current) drug therapy M54.2 Cervicalgia M17.0 Bilateral primary osteoarthritis of knee Assessments Date Code Description Provider 03/18/2019 M35.9 Systemic involvement of connective tissue, Wilfrido Campbell M.D. unspecified 03/18/2019 Z79.899 Other fdc (current) drug therapy Wilfrido Campbell M.D. 03/18/2019 R20.8 Other disturbances of skin sensation Wilfrido Campbell M.D. 03/18/2019 M25.519 Pain in unspecified shoulder Wilfrido Campbell M.D. 09/26/2018 M35.9 Systemic involvement of connective tissue, Wilfrido Campbell M.D. 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 09/26/2018 M54.2 Cervicalgia Wilfrido Campbell M.D. 09/26/2018 M17.0 Bilateral primary osteoarthritis of knee Wilfrido Campbell M.D. 09/21/2018 M17.0 Bilateral primary osteoarthritis of knee Neha Mejia M.D. 09/21/2018 M25.562 Pain in left knee Neha Mejia M.D. 09/21/2018 M25.561 Pain in right knee Neha Mejia M.D. Plan of Treatment No Information Available Functional Status Description No Information Available Mental Status Description No Information Available Referrals Description No Information Available
--- OUTSIDE RECORDS SUMMARY | 2019-05-05 10:48 | XMS REPORT | Continuity of Care Document ---
:1960 External Reference #:[id number] Author Name Vu Bell M.D. Address [address] [facility] [address] [place] [address] Care Team Providers Name Role Phone Marcel Vaughn MD - Plastic and Care Team Information Policy Intern Reconstructive Surgery Dawson Amaya MD - Urology Care Team Information Policy Intern [phone] Problems Active Problems Provider Date Hypothyroidism Vu Bell M.D. Onset: 04/14/2010 Impotence of organic origin Vu Bell M.D. Onset: 04/14/2010 Disorder of lipid metabolism Vu Bell M.D. Onset: 04/14/2010 Obstructive sleep apnea syndrome Vu Bell M.D. Onset: 04/14/2010 Eosinophilic esophagitis Vu Bell M.D. Onset: 10/19/2010 Low back pain Omid Hood D.O. Onset: 02/12/2013 Myalgia & Myositis Unspecified Omid Hood D.O. Onset: 02/12/2013 Benign essential hypertension Omid Hood D.O. Onset: 02/12/2013 Essential hypertension Vu Bell M.D. Onset: 03/20/2015 Disorder of fatty acid metabolism Vu Bell M.D. Onset: 03/20/2015 Testicular hypofunction Vu Bell M.D. Onset: 03/20/2015 Social History Type Date Description Comments Sex Unknown Tobacco Use Start: Unknown Tobacco Of Any [...] Medications SIG Qnty Indications Ordering Date Provider Amlodipine Besylate take 1 tablet daily 90tabs I73.00 Vu Bell, for Raynaud's MPorscheDPorsche 5mg Tablets syndrome Celecoxib Take 1capsule by Unknown 04/03/2019 100mg mouth 2x/day For Capsules Pain Or Inflammation -Avoid Other NSAIDS Ranitidine HCL 1 tablet by mouth K21.0 Unknown 08/28/2018 daily in the 300mg Tablets afternoon, for acid reflux K20.0 Dexilant 1 cap by mouth every Unknown 08/28/2018 60mg Capsules morning for acid reflux DR Plaquenil 1 tablet by mouth daily 30tabs Unknown 02/21/2018 200mg Tablets Sildenafil Citrate take 1 tablet by mouth 18tabs N52.9 Ray, 02/20/2018 daily if needed as Melanie Womack 100mg Tablets directed Gabapentin take 2 capsules by 450caps M25.512 Ray, 05/22/2017 100mg mouth every morning 1 Melanie Womack Capsules in the afternoon and 2 every evening for bilateral shoulder pain Levothyroxine Sodium take one tablet by 90tabs E03.9 Ray, 05/01/2017 mouth every morning on Melanie Womack 150mcg Tablets an empty stomach; for thyroid; blood test due fall 2019 BD 3ML Luer-Gabriel use as directed, 10units E29.1 Ray, 04/24/2017 Syringe/23G X 1-1/2" q2-3weeks, for Melanie Womack administration of 23G X 1-1/2" 3 ML testosterone Misc Tamsulosin HCL 1 by mouth every day Unknown 04/23/2017 0.4mg Capsules Testosterone inject 1.5cc 10ml N52.9 Ray, 07/06/2016 Cypionate intramuscularly every Melanie Womack 200mg/ml 2wks; for testosterone Solution replacement; mdd 1.5cc q2wks E29.1 Medications Administered in Office Medication SIG Qnty Indications Ordering Provider Date Toradol 15MG. Omid Hood D.O. 02/05/2013 Injection SC/Im Injections Omid Hood D.O. 02/05/2013 Injection Immunizations CPT Code Status Date Vaccine Lot # [id number] Given 05/16/2007 Adacel or Boostrix, TDaP [id number] Given 12/14/2004 DO Not Use- use U-code instead -Unlisted Immunization Procedure [id number] Given 02/27/2004 Hep B Immunization, Adult 27240 Refused 04/08/2019 Influenza Virus Vaccine, Quadrivalent, Split, Preservative Free 41524 Refused 08/18/2017 Shingrix Zoster (Shingles) Vaccine (HZV) Recomb,Subnit,Adjuvanted 37601 Refused 08/18/2017 Td Immunization 52850 Refused 04/17/2013 Flu, Split Virus 3Yrs 50951 Refused 04/06/2012 Flu, Split Virus 3Yrs Vital Signs Date Vital Result Comment 04/08/2019 8:56am BP Systolic 124 mmHg BP Diastolic 84 mmHg Height 68.75 inches 5'8.75" Weight 212.00 lb BMI (Body Mass Index) 31.5 kg/m2 08/29/2018 11:31am BP Systolic 128 mmHg BP Diastolic 82 mmHg BP Systolic Recheck 138 mmHg R arm sitting BP Diastolic Recheck 84 mmHg R arm sitting Height 68.5 inches 5'8.50" Weight 237.00 lb BMI (Body Mass Index) 35.5 kg/m2 Results Test Acquired Date Facility Test Result H/L Range Note Laboratory test 03/18/2019 [facility] PSA Diagnostic 1.516 0-4.0 1 finding [phone] ng/mL CBC Auto Diff 03/05/2019 [facility] White Blood 5.6 Normal 3.5-10.8 [phone] Count 10^3/uL Red Blood Count 4.83 10^6/uL Normal 4.18-5.48 Hemoglobin 14.7 g/dL Normal 14.0-18.0 Hematocrit 43 % Normal 42-52 Mean Corpuscular Volume 89 fL Normal 80-94 Mean Corpuscular Hemoglobin 31 pg Normal 27-31 Mean Corpuscular HGB Conc 34 g/dL Normal 31-36 Red Cell Distribution Width 14 % Normal 10-15 Platelet Count 288 10^3/uL Normal 150-450 Mean Platelet Volume 7.1 fL Low 7.4-10.4 Abs Neutrophils 3.8 10^3/uL Normal 1.5-7.7 Abs Lymphocytes 0.9 10^3/uL Low 1.0-4.8 Abs Monocytes 0.6 10^3/uL Normal 0-0.8 Abs Eosinophils 0.3 10^3/uL Normal 0-0.6 Abs Basophils 0.0 10^3/uL Normal 0-0.2 Abs Nucleated RBC 0.0 10^3/uL Granulocyte % 67.5 % Lymphocyte % 15.4 % Monocyte % 11.4 % Eosinophil % 4.9 % Basophil % 0.8 % Nucleated Red Blood Cells % 0.0 Laboratory test 03/05/2019 [facility] PSA Screening 1.983 ng/mL Normal 0-4.000 2 finding [phone] TSH (Thyroid Stim Horm) 0.50 mcIU/mL Normal 0.34-5.60 Testosterone 03/05/2019 [facility] Free 3.54 Abnormal 3.87-14.7 3 Free & Total [phone] Testosterone ng/dL ng/dl Testosterone 208 ng/dL Abnormal 240-950 4 1 Serum levels of PSA measured using the [employer] AfterYes DXI Hybritech immunoassay should not be interpreted as absolute evidence of the presence or absence of disease. The PSA value should be used in conjunction with other pertinent clinical diagnostic procedures. The values obtained with different assay methods or kits cannot be used interchangeably. 2 Serum levels of PSA measured using the Kenzie [place] DXI Hybritech immunoassay should not be interpreted as absolute evidence of the presence or absence of disease. The PSA value should be used in conjunction with other pertinent clinical diagnostic procedures. The values obtained with different assay methods or kits cannot be used interchangeably. 3 ADDITIONAL INFORMATION Testing performed by [facility]. This test was developed and its performance characteristics determined by [facility] in a manner consistent with CLIA requirements. This test has not been cleared or approved by the U.S. Food and Drug Administration. 4 ADDITIONAL INFORMATION Testing performed by Liquid Chromatography-Tandem Mass Spectrometry (LC-MS/MS). This test was developed and its performance characteristics determined by [facility] in a manner consistent with CLIA requirements. This test has not been cleared or approved by the U.S. Food and Drug Administration. Test Performed by: [facility] [address] [place] [address] Autopsy Assistant: Maverick Mcclellan M.D. Ph.D.; CLIA# [id number] Procedures Date Code Description Status 12/05/2016 11105764 Colonoscopy Completed Medical Devices Description No Information Available Encounters Type Date Location Provider Dx Diagnosis Office Visit 04/08/2019 Main Office Vu Bell M35.Jonathan Systemic involvement 9:15a M.D. of connective tissue, unspecified E29.1 Testicular hypofunction E03.9 Hypothyroidism, unspecified I10 Essential (primary) hypertension M25.512 Pain in left shoulder M25.511 Pain in right shoulder I73.00 Raynaud's syndrome without gangrene K20.0 Eosinophilic esophagitis Z68.31 Body mass index (BMI) 31.0-31.9, adult Assessments Date Code Description Provider 04/08/2019 M35.9 Systemic involvement of connective tissue, Vu Bell M.D. unspecified 04/08/2019 E29.1 Testicular hypofunction Vu Bell M.D. 04/08/2019 E03.9 Hypothyroidism, unspecified Vu Bell M.D. 04/08/2019 I10 Essential (primary) hypertension Vu Bell M.D. 04/08/2019 M25.512 Pain in left shoulder Vu Bell M.D. 04/08/2019 M25.511 Pain in right shoulder Vu Bell M.D. 04/08/2019 I73.00 Raynaud's syndrome without gangrene Vu Bell M.D. 04/08/2019 K20.0 Eosinophilic esophagitis Vu Bell M.D. 04/08/2019 Z68.31 Body mass index (BMI) 31.0-31.9, adult Vu Bell M.D. Plan of Treatment Future Appointment(s):10/08/2019 8:30 am - Vu Bell M.D. at [facility] [place]/08/2019 - Vu Bell M.D.M35.9 Systemic involvement of connective tissue, oglvyfermteH62.1 Testicular hypofunctionFollow up:RTO 6 months Get bloodwork the week prior, in the gluer and slicer hand on the morning you are due for a testosterone injection.E03.9 Hypothyroidism, [id number] Essential (primary) hypertensionNew Orders:Ua w/ micro, inhouse, Ordered: M25.512 Pain in left mjkyzmjnS42.511 Pain in right opbdjvohU23.00 Raynaud's syndrome without gangreneNew Medication:Amlodipine Besylate 5 mg - take 1 tablet daily for Raynaud's syndromeComments:Dx discussed and pathophysiology reviewed. Discussed importance of proper attire and staying warm. Discussed risk of arterial occlusion w/ subsequent tissue necrosis.e Discussed option of medication wc he elected to try, reviewed S/E profile. Discussed that he could stop the medication in the spring and if it has worked well then resume it in the fall.K20.0 Eosinophilic iwaedujfpdiG22.31 Body mass index (BMI) 31.0-31.9, adult Functional Status Description No Information Available Mental Status Description No Information Available Referrals Description No Information Available
[2019-05-05 11:17] VITALS: BP 138/90
--- NOTE | 2019-05-05 11:32 | UC ---
Respiratory Complaint HPI - HPI Summary HPI Summary: He complains of almost a week of congestion and full feeling in his head. It was worse on the right now is not so sure. He's been using some OTC decongestants. - History of Current Complaint Chief Complaint: UCRespiratory Stated Complaint: CONGESTED Time Seen by Provider: 05/05/19 11:13 Hx Obtained From: Patient Timing: Constant Severity Initially: Moderate Severity Currently: Moderate Pain Intensity: 0 Aggravating Factors: Nothing Alleviating Factors: Nothing Associated Signs And Symptoms: Positive: Nasal Congestion Related History: Similar Episode/Dx as: - Sinusitis - Allergies/Home Medications Allergies/Adverse Reactions: Allergies Allergy/AdvReac Type Severity Reaction Status Date / Time No Known Allergies Allergy Verified 05/05/19 11:13 Home Medications: Home Medications Levothyroxine TAB* [Synthroid 100 MCG TAB*] 150 mcg PO QAM 01/30/16 [History Confirmed 05/05/19] Sildenafil Citrate [Viagra] 100 mg PO SEE INSTRUCTIONS 11/30/16 [History Confirmed 05/05/19] Tamsulosin CAP* [Flomax CAP*] 0.4 mg PO QPM 11/30/16 [History Confirmed 05/05/19 ] Testosterone 1.5 mg IM SEE INSTRUCTIONS 12/05/16 [History Confirmed 05/05/19] Dexlansoprazole [Dexilant] 1 cap PO BID 05/01/17 [History Confirmed 05/05/19] Gabapentin [Neurontin] 200 mg PO SEE INSTRUCTIONS 02/19/18 [History Confirmed ] Hydroxychloroquine TAB* [Plaquenil TAB*] 200 mg PO QPM 12/09/18 [History Confirmed 05/05/19] PMH/Surg Hx/FS Hx/Imm Hx Previously Healthy: Yes GI/ History: Diverticulitis Other History Of: Negative For: HIV, Hepatitis B, Hepatitis C, Anticoagulant Therapy - Surgical History Surgical History: Yes Surgery Procedure, Year, and Place: Left wrist surgeries(GANGLION CYSTS) - 3 TOTAL. 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 - Family History Known Family History: Positive: Hypertension, Other - CA Negative: Cardiac Disease, Respiratory Disease - Social History Alcohol Use: Rare Alcohol Amount: 1-2 per year Substance Use Type: None Smoking Status (MU): Never Smoked Tobacco Have You Smoked in the Last Year: No - Immunization History Most Recent Influenza Vaccination: unknown Most Recent Tetanus Shot: up to date Most Recent Pneumonia Vaccination: never Review of Systems All Other Systems Reviewed And Are Negative: Yes Constitutional: Positive: Negative Skin: Positive: Negative Eyes: Positive: Negative ENT: Positive: Nasal Discharge, Sinus Congestion, Sinus Pain/Tenderness Respiratory: Positive: Negative Cardiovascular: Positive: Negative Gastrointestinal: Positive: Negative Neurological/Mental Status: Positive: Negative Physical Exam - Summary Physical Exam Summary: He is nontoxic in appearance with stable vital signs. Triage Information Reviewed: Yes Appearance: Well-Appearing, No Pain Distress Vital Signs: Initial Vital Signs Temp 98.3 F 05/05/19 11:14 Pulse 70 05/05/19 11:14 Resp 18 05/05/19 11:14 BP 138/90 05/05/19 11:14 Pulse Ox 96 05/05/19 11:14 Vital Signs Reviewed: Yes ENT: Positive: Pharynx normal, Nasal congestion, TMs normal, Other - His right frontal sinus does not transilluminate at all and his left poorly Dental Exam: Normal Neck exam: Normal Neck: Positive: Supple, No Lymphadenopathy Respiratory Exam: Normal Abdominal Exam: Normal Respiratory Course/Dx - Course Course Of Treatment: This is likely a sinusitis and although it may be viral concerned that his sinuses don't transilluminate. I recommended treatment with decongestants and antibiotics. - Differential Dx/Diagnosis Provider Diagnosis: Sinusitis Discharge ED - Sign-Out/Discharge Documenting (check all that apply): Patient Departure All imaging exams completed and their final reports reviewed: No Studies - Discharge Plan Condition: Stable Disposition: HOME Patient Education Materials: Sinusitis (ED) Referrals: Vu Bell MD [Primary Care Provider] - - Billing Disposition and Condition Condition: STABLE Disposition: Home
== END 2019-05-05 11:43 | disposition home or self-care (01) ==
LOC: UCEAST 10:43
DX: J32.9 Chronic sinusitis, unspecified (principal)
CPT/HCPCS: 99212; G0463

== ENCOUNTER 2019-05-17 15:09 | Emergency (ER) | payer BC ==
[2019-05-17 15:27] VITALS: BP 133/79
--- NOTE | 2019-05-17 15:56 | UC ---
Throat Pain/Nasal Prieto HPI - HPI Summary HPI Summary: 58 yo male presents with sore throat. He tells me that he was seen about 2 weeks ago for a sinus infection and was placed on augmentin. He took this and felt better for 3-4 days, but he then developed a sore throat and ears feel plugged. He has not taken anything OTC for his symptoms. He is eating, drinking , and tolerating po, but it does hurt to swallow. He denies fever, chills, rash , cough, abdominal pain, n/v - History of Current Complaint Chief Complaint: UCRespiratory Stated Complaint: SORE THROAT Time Seen by Provider: 05/17/19 15:55 Hx Obtained From: Patient Onset/Duration: Gradual Onset Severity: Mild Pain Intensity: 4 Pain Scale Used: 0-10 Numeric - Allergies/Home Medications Allergies/Adverse Reactions: Allergies Allergy/AdvReac Type Severity Reaction Status Date / Time No Known Allergies Allergy Verified 05/17/19 15:27 Home Medications: Home Medications Levothyroxine TAB* [Synthroid 100 MCG TAB*] 150 mcg PO QAM 01/30/16 [History Confirmed 05/17/19] Sildenafil Citrate [Viagra] 100 mg PO SEE INSTRUCTIONS 11/30/16 [History Confirmed 05/17/19] Tamsulosin CAP* [Flomax CAP*] 0.4 mg PO QPM 11/30/16 [History Confirmed 05/17/19 ] Testosterone 1.5 mg IM SEE INSTRUCTIONS 12/05/16 [History Confirmed 05/17/19] Dexlansoprazole [Dexilant] 1 cap PO BID 05/01/17 [History Confirmed 05/17/19] Gabapentin [Neurontin] 200 mg PO SEE INSTRUCTIONS 02/19/18 [History Confirmed ] Hydroxychloroquine TAB* [Plaquenil TAB*] 200 mg PO QPM 12/09/18 [History Confirmed 05/17/19] Fluticasone NASAL SPRAY 50MCG* [Flonase NASAL SPRAY 50MCG*] 2 spray BOTH NARES DAILY #1 btl 05/17/19 [Rx] clindamycin HCL [Clindamycin HCl] 300 mg PO TID #21 capsule 05/17/19 [Rx] PMH/Surg Hx/FS Hx/Imm Hx - Additional Past Medical History Additional PMH: BPH Endocrine History: Hypothyroidism Cardiovascular History: Hypertension Other History Of: Negative For: HIV, Hepatitis B, Hepatitis C, Anticoagulant Therapy - Surgical History Surgical History: Yes Surgery Procedure, Year, and Place: Left wrist surgeries(GANGLION CYSTS) - 3 TOTAL. 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 - Family History Known Family History: Positive: Hypertension, Other - CA Negative: Cardiac Disease, Respiratory Disease - Social History Lives: With Family Alcohol Use: Rare Alcohol Amount: 1-2 per year Substance Use Type: None Smoking Status (MU): Never Smoked Tobacco Have You Smoked in the Last Year: No - Immunization History Most Recent Influenza Vaccination: unknown Most Recent Tetanus Shot: up to date Most Recent Pneumonia Vaccination: never Review of Systems All Other Systems Reviewed And Are Negative: No Constitutional: Positive: Negative Skin: Positive: Negative Eyes: Positive: Negative ENT: Positive: Sore Throat, Ear Ache Respiratory: Positive: Negative Cardiovascular: Positive: Negative Gastrointestinal: Positive: Negative Physical Exam - Summary Physical Exam Summary: GENERAL: NAD. WDWN. No pain distress. SKIN: No rashes, sores, lesions, or open wounds. HEENT: Head: AT/NC Eyes: Conjunctiva clear without inflammation or discharge. Ears: Hearing grossly normal. TMs intact, no bulging, erythema, or edema. Clear fluid behind b/l TMs. Nose: Nasal mucosa pink and moist. NTTP maxillary and frontal sinus. Throat: Posterior oropharynx mild erythema. No tonsillar enlargement. Singular brownish appearing exudate to right palatopharyngeal arch. Uvula midline. No hoarse voice or muffled voice. NECK: Supple. Nontender. No lymphadenopathy. CHEST: CTAB. No r/r/w. No accessory muscle use. Breathing comfortably and in no distress. CV: RRR. Pulses intact. Cap refill <2seconds NEURO: Alert. PSYCH: Age appropriate behavior. Triage Information Reviewed: Yes Vital Signs: Initial Vital Signs Temp 98.3 F 05/17/19 15:21 Pulse 78 05/17/19 15:21 Resp 16 05/17/19 15:21 BP 133/79 05/17/19 15:21 Pulse Ox 97 05/17/19 15:21 Laboratory Tests 05/17/19 05/17/19 15:47 15:49 Influenza A (Rapid) Negative Influenza B (Rapid) Negative Group A Strep Rapid Negative Vital Signs Reviewed: Yes Throat Pain/Nasal Course/Dx - Course Course Of Treatment: POC strep and flu negative. Throat culture obtained of suspicious exudate to arch as noted in PE. Will place him on clindamycin for anaerobe coverage. Advised to monitor this area and if worsens or does not go away to be rechecked by PCP - Differential Dx/Diagnosis Provider Diagnosis: Pharyngitis Discharge ED - Sign-Out/Discharge Documenting (check all that apply): Patient Departure All imaging exams completed and their final reports reviewed: No Studies - Discharge Plan Condition: Stable Disposition: HOME Prescriptions: clindamycin HCL [Clindamycin HCl] 300 mg PO TID #21 capsule Fluticasone NASAL SPRAY 50MCG* [Flonase NASAL SPRAY 50MCG*] 2 spray BOTH NARES DAILY #1 btl Referrals: Vu Bell MD [Primary Care Provider] - - Billing Disposition and Condition Condition: STABLE Disposition: Home
[2019-05-17 16:00] LABS: Influenza A Molecular Negative (Negative); Influenza B Molecular Negative (Negative)
--- NOTE | 2019-05-19 16:31 | UC ---
- Progress Note Progress Note: 58 YEAR OLD MALE, THROAT CULTURES NEGATIVE. MAY STOP CLINDAMYCIN, FOLLOW UP WITH PRIMARY CARE PHYSICIAN. GARCIA BRANDON PAC Course/Dx - Diagnoses Provider Diagnoses: Pharyngitis Discharge ED - Sign-Out/Discharge Documenting (check all that apply): Patient Departure All imaging exams completed and their final reports reviewed: No Studies - Discharge Plan Condition: Stable Disposition: HOME Prescriptions: clindamycin HCL [Clindamycin HCl] 300 mg PO TID #21 capsule Fluticasone NASAL SPRAY 50MCG* [Flonase NASAL SPRAY 50MCG*] 2 spray BOTH NARES DAILY #1 btl Referrals: Vu Bell MD [Primary Care Provider] - - Billing Disposition and Condition Condition: STABLE Disposition: Home
== END 2019-05-17 16:30 | disposition home or self-care (01) ==
LOC: UCEAST 15:09
DX: J02.9 Acute pharyngitis, unspecified (principal); I10 Essential (primary) hypertension; E03.9 Hypothyroidism, unspecified; Z79.890 Hormone replacement therapy
CPT/HCPCS: 87070; 87651; 99212; G0463